=== PATIENT | female | born 1960 | race Caucasian/White ===

== ENCOUNTER 2021-01-11 07:48 | Outpatient (REF) | payer OTHER, SELFPAY ==
--- NOTE | ~2021-01-11 | MM_ITS ---
EXAMINATION: MM SCREENING DIGITAL BREAST TOMOSYNTHESIS, BILATERAL CLINICAL INFORMATION: Screening. Asymptomatic. The lifetime risk of breast cancer based on the Tyrer-Cuzick Model is 4.9%. COMPARISON: Mammography: January 06, 2020 and studies dating back to March 03, 2014 TECHNIQUE: Digital breast tomosynthesis is performed in both the craniocaudal and mediolateral oblique views along with computer-aided detection (CAD). Synthesized 2D images are generated from the tomosynthesis. FINDINGS: The breasts are heterogeneously dense, which may obscure small masses (ACR BI-RADS breast composition Category c). There are no significant masses, abnormal calcifications, or other abnormalities. There is multiplicity and bilaterality of stable calcifications. MM/MM tomosynthesis screening BI IMPRESSION: There are no significant changes from prior study. ASSESSMENT: BI-RADS 1: Negative RECOMMENDATION: Routine annual mammography screening. This patient's information was entered into a reminder system with a target due date for their next mammogram.
== END 2021-01-11 07:49 | disposition home or self-care (01) ==
LOC: HO.MAMMO 07:48
PROVIDERS: PCP Internal Medicine; Visit Provider Internal Medicine
DX: Z12.31 Encounter for screening mammogram for malignant neoplasm of breast (principal)
CPT/HCPCS: 77063; 77067

== ENCOUNTER 2022-01-19 11:14 | Outpatient (REF) | payer OTHER, SELFPAY ==
--- NOTE | ~2022-01-19 | MM_ITS ---
EXAMINATION: MM SCREENING DIGITAL BREAST TOMOSYNTHESIS, BILATERAL CLINICAL INFORMATION: Screening. Asymptomatic. The lifetime risk of breast cancer based on the Tyrer-Cuzick Model is 5%. COMPARISON: Mammography: 01/11/2021, 01/06/2020, 09/13/2018 TECHNIQUE: Digital breast tomosynthesis is performed in both the craniocaudal and mediolateral oblique views along with computer-aided detection (CAD). Synthesized 2D images are generated from the tomosynthesis. FINDINGS: The breasts are heterogeneously dense, which may obscure small masses (ACR BI-RADS breast composition Category c). Parenchymal pattern is similar to prior studies. There is no developing density or architectural abnormality. Stable nodule mid outer left breast with adjacent clip marker. There is small stable circumscribed nodule anterior medial right breast. There are scattered benign round coarse calcifications left breast and some stable punctate loosely grouped calcifications anterior upper outer right breast. The axilla are unremarkable. No significant changes. MM/MM tomosynthesis screening BI IMPRESSION: No significant changes from prior exams. ASSESSMENT: BI-RADS 2: Benign RECOMMENDATION: Routine annual mammography screening. This patient's information was entered into a reminder system with a target due date for their next mammogram.
== END 2022-01-19 11:15 | disposition home or self-care (01) ==
LOC: HO.MAMMO 11:14
PROVIDERS: Visit Provider Internal Medicine
DX: Z12.31 Encounter for screening mammogram for malignant neoplasm of breast (principal)
CPT/HCPCS: 77063; 77067

== ENCOUNTER 2022-11-17 15:17 | Outpatient (AMB) | payer OTHER, SELFPAY ==
--- NOTE | 2022-11-17 15:26 | AM.OFFWIN_ITS ---
Intake Vital Signs 11/17/22 15:29 BP 130/80 Blood Pressure Location Lt brachial Position Sitting Pulse 66 Pulse Source Pulse Oximeter Pulse Oximetry (%) 98 Oxygen Delivery Method Room Air Intake Visit Reasons: EP LT thumb pain (lobby) Intake Note: patient here jose luis boyer about 3 weeks she has been experiecing left thumb pain, gets stuck Patient Tobacco Use Status: Current everyday Tobacco user Allergies No Known Allergies [No Known Allergies*] Allergy (Unverified 11/17/22 15:29) Do you need a note to return to daycare/school/sports/work: Yes HPI HPI Comments History of Present Illness Details This is a 62-year-old female who presents to the office today with left thumb pain. Patient states she noticed that her thumb was popping in and out of place about 3 weeks ago. Patient denies any known trauma or injury to the area. She denies any numbness/weakness/paresthesias of the thumb. Patient otherwise feeling well. PFSH Social History Patient Tobacco Use Status: Current everyday Tobacco user Review of Systems Const All systems reviewed & are unremarkable except as noted in HPI and below Eyes Reports no additional complaints ENT Reports no additional complaints Card Reports no additional complaints Resp Reports no additional complaints GI Reports no additional complaints Reports no additional complaints Musc Reports as per HPI Skin/Breast Reports system reviewed and no additional complaints, except as documented Neuro Reports no additional complaints Psych Reports no additional complaints Endo Reports no additional complaints Mahad/Lymph Reports no additional complaints Aller/Immun Reports no additional complaints Physical Exam Vital Signs: Last Vital Signs Pulse 66 11/17/22 15:29 BP 130/80 11/17/22 15:29 Pulse Ox 98 11/17/22 15:29 Oxygen Delivery Method Room Air 11/17/22 15:29 Const General: cooperative, healthy appearing, comfortable and no acute distress HEENT Head: Yes normal to inspection Ears: hearing grossly normal bilaterally General nose exam: Normal external nose present Face and sinus: Yes normal facial exam Eyes General: appearance normal, both eyes and all related structures Pupils: Equal, round and reactive pupils present EOM: EOMs intact bilaterally Resp Effort & Inspection: normal respiratory effort, able to speak in complete sentences and no respiratory distress Cardio Rate: regular rate Neuro Cranial nerves: Yes Equal, round and reactive pupils present Extrem Other: Left thumb is without swelling, erythema, or ecchymosis. There is a snapping sound upon flexion of the interphalangeal joint and then patient is unable to extend the interphalangeal joint easily but it eventually snaps back into place. Assessment & Plan Assessment & Plan (1) Pain of left thumb: Code(s): M79.645 - Pain in left finger(s) Plan: This is a 62-year-old female who presents to the office today complaining of left thumb pain and ?snapping?. It appears that patient's interphalangeal joint almost dislocates upon flexion and then subluxates back into place. X-ray of the left hand was obtained to rule out avulsion fracture and was negative for any acute findings. 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 Patient instructed to utilize acetaminophen as well as ibuprofen around the clock for anti-inflammatory purposes. Patient will be out of work for the next 10 days as she is on vacation. She declines a brace at this time. She will follow up with Orthopedic surgery as soon as possible. Coding Level of Care Code Est Pt Level 3 (19000) Diagnoses Pain of left thumb M79.645
[2022-11-17 15:29] VITALS: BP 130/80; PULSE 66; O2SAT 98
== END 2022-11-17 16:14 | disposition home or self-care (01) ==
PROVIDERS: PCP Internal Medicine; Visit Provider Physician Assistant Medical
DX: M79.645 Pain in left finger(s) (principal)
CPT/HCPCS: 99213

== ENCOUNTER 2022-11-17 15:50 | Outpatient (REF) | payer OTHER, SELFPAY ==
--- NOTE | ~2022-11-17 | XR_ITS ---
EXAMINATION: XR HAND, LEFT CLINICAL INFORMATION: Finger pain COMPARISON: 12-14 TECHNIQUE: PA, lateral, and oblique views of the left hand. FINDINGS: No fracture or dislocation. Alignment maintained. Degenerative change of the first carpometacarpal joint with joint space narrowing and osteophytes. Small osteophytes throughout the interphalangeal joints. No osseous erosions. Soft tissues appear unremarkable. XR/XR hand LT min 3V IMPRESSION: Mild degenerative changes throughout the interphalangeal joints and first carpometacarpal joint.
== END 2022-11-17 15:51 | disposition home or self-care (01) ==
LOC: HO.HMGCX 15:50
PROVIDERS: PCP Internal Medicine; Visit Provider Physician Assistant Medical
DX: M79.645 Pain in left finger(s) (principal)
CPT/HCPCS: 73130

== ENCOUNTER 2023-01-10 14:41 | Outpatient (AMB) | payer OTHER, SELFPAY ==
--- NOTE | 2023-01-10 14:55 | A.OFFVIS_ITS ---
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 Patients reports pain and not able to bend at the IP joint for the past 3 months. States unable to title examiner and pinch items. Pain radiates down to her CMC. Denies injury, numbness or tingling. No previous tx. 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 She states she has pain in her thumb which radiates down to her CMC. She is unable to bend the IP joint and finds difficulty with gripping and pinching motions. She denies any numbness or tingling and has not had any treatment in the past. 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 Review of Systems Const All systems reviewed & are unremarkable except as noted in HPI and below Physical Exam Vital Signs: BMI result Body Mass Index 21.6 Const General: cooperative, healthy appearing, comfortable, no acute distress, well developed and alert Orientation/consciousness: patient oriented x3 HEENT Head: Yes normal to inspection, Yes normocephalic and Yes atraumatic Eyes General: appearance normal, both eyes and all related structures Resp Effort & Inspection: normal respiratory effort and able to speak in complete sentences Cardio Rate: regular rate Peripheral pulses: Peripheral pulses 2+ throughout GI Palpation (GI): Soft to palpation Skin Lesions: no lesions Rashes: no rashes Neuro General: patient oriented x3 Extrem Other: Left thumb: Tender nodule along the A1 ulysses with active catching and locking. NVI. Assessment & Plan Assessment & Plan (1) Trigger finger of left thumb: Code(s): M65.312 - Trigger thumb, left thumb Plan We discussed options which include conservative vs operative treatment. Since the patient has been symptomatic for several months and it is impacting their daily life, the decision was made to undergo Trigger release. We discussed risk, benefits and alternatives. Risk including but not limited to infection, stiffness, ongoing trigger or catching. She does understand all this and would like to proceed with left thumb trigger release with Dr. Sosa. She will be booked accordingly. Patient Instructions: Scribed for Kaylynn Ross PA-C, by Gregory Carballo emergency medical service coordinator, on 01/10/2023 at 3:00 PM EST. I, Kaylynn Ross PA-C, have personally reviewed and agree with the information entered by the scribe. Coding Level of Care Code New Pt Level 4 (35236) Diagnoses Trigger finger of left thumb M65.312
[2023-01-10 14:58] VITALS: BMI 21.6
== END 2023-01-10 15:30 | disposition home or self-care (01) ==
PROVIDERS: Visit Provider Physician Assistant
DX: M65.312 Trigger thumb, left thumb (principal)
CPT/HCPCS: 99204

== ENCOUNTER → 2023-01-10 14:41 | Outpatient (BNVA) | payer OTHER, SELFPAY | PROVIDERS: Visit Provider Physician Assistant ==

== ENCOUNTER 2023-01-25 08:31 | Outpatient (REF) | payer OTHER, SELFPAY | END 2023-01-25 08:32 | disposition home or self-care (01) | LOC: HO.MAMMO 08:31 | PROVIDERS: PCP Internal Medicine; Visit Provider Internal Medicine | DX: Z12.31 Encounter for screening mammogram for malignant neoplasm of breast (principal) | CPT/HCPCS: 77063; 77067 ==

== ENCOUNTER → 2023-01-25 08:45 | Outpatient (BNV) | payer OTHER, SELFPAY | PROVIDERS: PCP Internal Medicine; Visit Provider Radiology Diagnostic Radiology | DX: Z12.31 Encounter for screening mammogram for malignant neoplasm of breast (principal) | CPT/HCPCS: 77063; 77067 ==

== ENCOUNTER 2023-02-01 09:11 | Outpatient (AMB) | payer OTHER, SELFPAY ==
--- NOTE | 2023-02-01 11:40 | AM.OFFWIN_ITS ---
Intake Vital Signs 02/01/23 11:42 Height 5 ft 5 in Weight 130 lb BMI 21.6 BP 130/70 Blood Pressure Location Rt brachial Position Sitting Pulse 79 Pulse Source Pulse Oximeter Temp 96.8 F Temp Source Temporal Artery Scan Pulse Oximetry (%) 96 Oxygen Delivery Method Room Air Intake Visit Reasons: EP Back pain Intake Note: Pt is here c/o back since 01/29/23. Pt states she had a tag sale this weekend and was doing a lot of lifting. Patient Tobacco Use Status: Current everyday Tobacco user Allergies No Known Allergies [No Known Allergies*] Allergy (Unverified 02/01/23 11:41) Do you need a note to return to daycare/school/sports/work: No HPI EP Back pain HPI Details 62-year-old female patient presents toda with acute lower back pain. This started over the weekend, following a tag seal, where she was doing significant bending and lifting. She reports constant lower back pain, increasing with any bending or standing. She denies any radiation of pain down legs. Denies any leg weakness or numbness. Denies any past surgery or trauma to lower back. Denies any bowel or bladder dysfunction or saddle anesthesia. 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 Range of motion very painful, particularly with flexion and extension of lumbar spine. No vertebral tenderness. Patient having discomfort even with sitting during appointment. Skin General skin exam: no rashes or lesions noted Extrem General: Yes capillary refill normal and Yes no clubbing, cyanosis or edema Psych Appearance: grossly normal Mental Status: mental status grossly normal Speech and movement: Normal speech and movement present Assessment & Plan Assessment & Plan (1) Acute lumbar myofascial strain: Code(s): S39.012A - Strain of muscle, fascia and tendon of lower back, initial encounter Qualifiers: Encounter type: initial encounter Qualified Code(s): S39.012A - Strain of muscle, fascia and tendon of lower back, initial encounter Plan: Patient has acute lumbar strain due to a lifting injury this past weekend. She declines imaging at this time. I advised she rest and apply heat/ice as needed, and also can continue to use lidocaine patches. I am going to start her on a short course of muscle relaxers for HS use and also pain medication for prn use only for breakthrough pain after using Motrin/Tylenol and other conservative measures. We reviewed indications, use, risks, possible side effects of medicati on. If she does not improve with time and treatment, or if new symptoms develop, she should return to the clinic for further evaluation. She agrees to plan. Medications: New tizanidine 4 mg PO BEDTIME 5 days PRN 5 tabs 0RF muscle spasticity tramadol 50 mg PO BID 3 days PRN 6 tabs 0RF pain S39.012A - Strain of muscle, fascia and tendon of lower back, initial encounter Coding Level of Care Code Est Pt Level 3 (42990) Diagnoses Acute myofascial strain of lumbar region, initial encounter S39.012A Encounter type: initial encounter
[2023-02-01 11:42] VITALS: BP 130/70; PULSE 79; TEMP 36; O2SAT 96; BMI 21.6
== END 2023-02-01 12:11 | disposition home or self-care (01) ==
PROVIDERS: PCP Internal Medicine; Visit Provider Nurse Practitioner Family
DX: S39.012A Strain of muscle, fascia and tendon of lower back, initial encounter (principal)
CPT/HCPCS: 99213

== ENCOUNTER 2023-02-19 10:40 | Day surgery (SDC) | payer OTHER, SELFPAY ==
[2023-02-19 14:12] VITALS: BP 129/88; PULSE 69; RESP 16; TEMP 36.8; O2SAT 98
[2023-02-19 14:13] VITALS: BMI 21.6
--- NOTE | 2023-02-19 14:20 | PC.NURSE ---
This nurse reported off to [employer] Asif.
--- NOTE | 2023-02-19 15:13 | MHC.SHP ---
Pre-Procedural Eval Section A Date of Service: 02/19/23 The patient is an INPATIENT: No Changes since office visit: No Cold of Flu in the past 2 weeks, No New Medical Problems, No Changes in Medication and No Patient answered all questions The History & Physical has been completed within 30 days and I have reviewed it.: Yes Section B Chief Complaint: Trigger thumb, left thumb Allergies: Allergies Allergy/AdvReac Type Severity Reaction Status Date / Time No Known Allergies Allergy Verified 02/19/23 14:10 [No Known Allergies*] Plan I have reviewed the history and physical and performed a pertinent physical examination on my patient. No changes have occurred unless specified. Time Spent With Patient Time: Total time managing care of this patient today ____ minutes.
--- NOTE | 2023-02-19 15:13 | W.PM.OPN ---
Operative Note Operative Note Date of Service: 02/19/23 Narrative: Operative Note Preop diagnosis: 1. Left trigger thumb Postop diagnosis: 1. left trigger thumb Procedure: 1. left thumb A1 ulysses release Surgeon: Seema Sosa MD Anesthesia: local block using 1% lidocaine with epinephrine Findings: No locking or catching after A1 ulysses release EBL: Less than 5 mL Tourniquet time: None Specimens: None Complications: None Disposition: Brought to recovery room in stable condition Plan: Follow-up for 10-14 days for wound check and suture removal Indications: The patient is 62 years old, with a left trigger thumb that has been unresponsive to nonoperative management. The risks and benefits of operative treatment including but not limited to risk of damage to blood vessels, nerves, tendons, infection, persistent pain, persistent symptoms, recurrence or possible need for additional surgery were discussed with the patient and the patient wishes to proceed with surgery. Procedure: Once consent was obtained a local block was performed in the preop area using a combination of 1% lidocaine with epinephrine. The patient was then brought back to the operating suite and placed on the operative table in supine position. The left upper extremity was prepped and draped in a standard surgical fashion. Once assured that we had a good block, a 1.5 cm oblique incision was made centered over the A1 ulysses of the left thumb . The incision was made through the skin to the subcutaneous tissues using a #15 blade. Careful dissection was made down to the level of the A1 ulysses using tenotomy scissors, with care being taken to protect the nearby neurovascular structures. A longitudinal incision was made in the A1 ulysses 1st using a #15 blade, then using tenotomy scissors under direct visualization. The A1 ulysses was noted to be thickened. Following our A1 ulysses release, we no longer saw any locking or catching of the digit with flexion and extension. Once satisfied with our A1 ulysses release the wound was copiously irrigated with normal saline and hemostasis was obtained with a brief period of local pressure. The skin edges were reapproximated with some 5.0 nylon suture material and a sterile dressing was applied. The patient appears to have tolerated the procedure well and with no complications. All digits were well vascularized at the conclusion of the case.
[2023-02-19 16:50] VITALS: BP 164/64; PULSE 65; RESP 18; TEMP 37.3; O2SAT 98
== END 2023-02-19 17:05 ==
LOC: HO.SSS 10:41
PROVIDERS: PCP Internal Medicine; Visit Provider Orthopaedic Surgery
PROC: (CPT 26055; principal; 2023-02-19 12:20)
DX: M65.312 Trigger thumb, left thumb (principal); M79.645 Pain in left finger(s); F17.210 Nicotine dependence, cigarettes, uncomplicated
CPT/HCPCS: 26055; J0171

== ENCOUNTER → 2023-02-19 10:40 | Outpatient (BNV) | payer OTHER, SELFPAY | PROVIDERS: PCP Internal Medicine; Visit Provider Orthopaedic Surgery | DX: M65.312 Trigger thumb, left thumb (principal) | CPT/HCPCS: 26055 ==

== ENCOUNTER 2023-03-07 11:20 | Outpatient (AMB) | payer OTHER, SELFPAY ==
--- NOTE | 2023-03-07 11:22 | A.OFFVIS_ITS ---
Intake Intake Visit Reasons: PO Left Trigger thumb 02/19/23AR Intake Note: Angelina a 62 year old female presents today for a post operative left thumb trigger release from [facility] 02/19/23. States she has tenderness by suture area and swelling which limits her ROM. Allergies No Known Allergies [No Known Allergies*] Allergy (Verified 03/07/23 11:28) HPI PO Left Trigger thumb 02/19/23AR HPI Details 62-year-old female who returns to the [facility] today for post-op left trigger thumb release, 02/19/[address] Sosa. She continues to have tenderness at the suture area and also c/o swelling in her thumb which limits her ROM. She is doing well otherwise and has no other concerns today. 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 No redness or drainage. She is able to bend 90 degrees at the MCP joint but only 45 degrees at the IP joint. She can fully extend the digit. I do not appreciate any clicking or locking. Assessment & Plan Assessment & Plan (1) Trigger finger of left thumb: Code(s): M65.312 - Trigger thumb, left thumb Plan Sutures removed today, steri strips applied. I educated her on the importance of working on ROM of hand especially the thumb. She is significantly guarded with trying to flex the thumb at the IP joint due to her pain. I did work on some of this in the office today. I also put in a referral for occupational therapy to work on aggressive ROM. She will remain out of work until March 26 and I will see her back on the week of March 29 for a ROM check, sooner if needed. Orders: Orders OT Evaluation and Treatment Today M65.312 - Trigger thumb, left thumb Patient Instructions: Scribed for Kaylynn Ross PA-C, by Gregory Carballo, director of graduate medical education, on 03/07/2023 at 11:30 AM Kaylynn HARRISON PA-C, have personally reviewed and agree with the information entered by the scribe. Coding Level of Care Code Global (72480) Diagnoses Trigger finger of left thumb M65.312
== END 2023-03-07 11:51 | disposition home or self-care (01) ==
PROVIDERS: PCP Internal Medicine; Visit Provider Physician Assistant
DX: M65.312 Trigger thumb, left thumb (principal)
CPT/HCPCS: 99024

== ENCOUNTER → 2023-03-07 11:20 | Outpatient (BNVA) | payer OTHER, SELFPAY | PROVIDERS: PCP Internal Medicine; Visit Provider Physician Assistant ==

== ENCOUNTER 2023-03-21 09:09 | Outpatient (AMB) | payer OTHER, SELFPAY ==
--- NOTE | 2023-03-21 09:21 | MHC.OFFVIS ---
Intake Vital Signs 03/21/23 09:22 Height 5 ft 5 in Weight 130 lb BMI 21.6 Intake Visit Reasons: PO Left Trigger thumb 02/19/23AR Intake Note: Angelina mcdonald 62 year old female presents today for a post operative ROM check s/p left thumb trigger release from [facility] 02/19/23. States she is working with O.T to gain her thumb ROM back. She is slowly noticing improvement. Allergies No Known Allergies [No Known Allergies*] Allergy (Verified 03/21/23 09:21) HPI PO Left Trigger thumb 02/19/23AR HPI Details 62-year-old female who returns to the office today for post-op ROM check s/p left trigger thumb release, 02/19/[address] Sosa. She continues to have pain and stiffness in her finger and reports no change in her symptoms since surgery. She is working with occupational therapy to gain her ROM back. She has no concerns today. 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 She is able to bend 90 degrees at the MCP joint but only 45 degrees at the IP joint. She can fully extend the digit. I do not appreciate any clicking or locking. Assessment & Plan Assessment & Plan (1) Trigger finger of left thumb: Code(s): M65.312 - Trigger thumb, left thumb Plan I stress importance working with occupational therapy which also means working on exercises at home. Because she states her IP joint is locked since before surgery, I am not certain there will be much improvement. I do strongly encourage she meet back with Dr. Sosa when she returns in early April. She will see me back sooner if needed. Patient Instructions: Scribed for Kaylynn Ross PA-C, by Gregory Carballo medical esthetician, on 03/21/2023 at 9:30 AM Kaylynn HARRISON PA-C, have personally reviewed and agree with the information entered by the scribe. Coding Level of Care Code Global (73122) Diagnoses Trigger finger of left thumb M65.312
[2023-03-21 09:22] VITALS: BMI 21.6
== END 2023-03-21 09:35 | disposition home or self-care (01) ==
PROVIDERS: PCP Internal Medicine; Visit Provider Physician Assistant
DX: M65.312 Trigger thumb, left thumb (principal)
CPT/HCPCS: 99024

== ENCOUNTER → 2023-03-21 09:09 | Outpatient (BNVA) | payer OTHER, SELFPAY | PROVIDERS: PCP Internal Medicine; Visit Provider Physician Assistant ==

== ENCOUNTER 2023-04-05 13:00 | Outpatient (RCR) | payer OTHER, SELFPAY ==
--- NOTE | 2023-03-14 13:01 | MHC.OT.EP ---
[address] [phone] Occupational Therapy Plan of Care Patient Name: Angelina Haile Date of Evaluation: 03/14/23 Diagnosis: Left Trigger Thumb Pain Location: Pain free in hand 3/10 burning, ache across dorsal thumb, some soreness in scar Pain Score: 3 Pain Scale Used: Numeric (0 - 10) Aggravating Factors: Grasping Alleviating Factors: Advil in morning (takes also due to back pain) Assessment: 62 yo female w/ hx of left thumb triggering, now post-op trigger finger release 02/19/23 w/ Dr Sosa. She reports difficulty w/ active thumb flexion, now referred to OT for further management. On assessment, she has high sensitivity in volar scar, well healed but firm scarring and tender to palpate. Thumb flex is limited w/ minimal active IP, but pt still very guarded. I anticipate she will do well w/ course of OT for good functional return of non-dominant left hand. Frequency and Duration: The patient will be seen 2x/wk 3 weeks Short Term Goals: Ind w/ HEP Ind w/ scar management Thumb IP 30 degrees AROM Pt to demo good bimanual FMC tasks w/ ADL closure boards Mcfp Goals: QuickDASH score <20 Gross grasp >35lb Full thumb opp to base of small finger Pt to demo good use of thumb w/ moderate bimanual tasks FDT <20 secs Treatment Plan: Therapeutic Exercise Therapeutic Activity Home Exercise Program Patient Education Edema Control ADL Training Paraffin Fluidotherapy MHP Soft Tissue Mobilization Electronically Signed By: Debbie Hu OTR/L CHT Please Sign and return to therapist. Thank you once again for your referral.
--- NOTE | 2023-04-05 13:47 | MHC.OT.DC ---
[address] [phone] F: [phone] Occupational Therapy Discharge Note Patient Name: Angelina Haile Provider: Kaylynn Ross PA-C Diagnosis: Left Trigger Thumb Date of Surgery: 02/19/23 Date of Evaluation: 03/14/23 Date of Discharge: 04/05/23 Treatments to Date: 6 Discharge Status: Achieved Goals Improved Function Independent with HEP Discharge Summary: Angelina is now about 6 weeks post-op left trigger thumb release. She reports overall improvements w/ left thumb pain and general use, still w/ tenderness and edema on volar aspect, but Ind w/ self massage and ROM. 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 She has been educated on joint protection and use of ice for inflammation, also will trial prefab orthosis for protection. If no improvement over next several weeks, will discuss w/ MD on ortho follow up. Electronically Signed By: Debbie Hu OTR/L CHT Please Sign and return to therapist, thank you for your referral.
== END 2023-04-05 13:48 | disposition home or self-care (01) ==
LOC: HO.OT 13:00
PROVIDERS: PCP Internal Medicine; Visit Provider Physician Assistant
DX: Z47.89 Encounter for other orthopedic aftercare (principal)
CPT/HCPCS: 97110; 97140; 97165; 97530

== ENCOUNTER 2023-05-08 08:41 | Outpatient (AMB) | payer OTHER, SELFPAY ==
--- NOTE | 2023-05-08 08:44 | MHC.OFFVIS ---
Intake Vital Signs 05/08/23 08:45 Height 5 ft 5 in Weight 130 lb BMI 21.6 Intake Visit Reasons: OV- left thumb trigger release Intake Note: Angelina a 62 year old female who is 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, presents today for a follow up visit for her ROM check s/p left thumb trigger release from DOS 02/19/23. States she is limited ROM at her MCP joint and pain with over use. Allergies No Known Allergies [No Known Allergies*] Allergy (Verified 03/21/23 09:21) HPI OV- left thumb trigger release HPI Details Angelina is a 62 year old 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 woman who returns S/P left trigger thumb release, DOS: 02/19/23. She complains of limited thumb ROM since her surgery, and she has increased pain when overusing her thumb. She has been working with OT but has not been able to improve her motion. 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 The area is nontender and with good mobility. The patient says that initially it was tender for a while but it has improved in the last month. She has full active extension of the thumb. She can actively oppose her thumb to the tips of all digits but has trouble flexing to the base of the small finger. She does have about 45 degrees of active flexion at the IP joint but she has got perhaps 70 degrees of IP flexion in the opposite thumb. There is also some mild enlargement of the IP joint consistent with arthritic changes. No locking or catching with range of motion. No tenderness over the 1st dorsal compartment or the MCP joint. She does have a mild shoulder sign at the CMC joint but is not particularly tender. When she flexes down she feels a tightness across the dorsal aspect of the thumb extending across the metacarpal consistent with some mild extrinsic tightness. She can make a fist and extend all of her other digits. Sensation is intact to all digits and cap refill is brisk Psych Appearance: grossly normal Affect: normal affect Attitude: cooperative Assessment & Plan Assessment & Plan (1) Trigger finger of left thumb: Code(s): M65.312 - Trigger thumb, left thumb Plan Assessment & Plan: 1. Left thumb trigger finger, S/P release DOS: 02/19/23 2. Left residual mild left thumb IP stiffness I think she is doing well postoperatively. She does have some mild residual stiffness still in the IP joint. This certainly could be related to the fact that she had the trigger thumb for prolonged period, and during this time she was not actively flexing her thumb. She also appears to have some arthritic changes in the IP joint which could be slowing her recovery of range of motion. She has completed her OT hand therapy. I encouraged her to continue to work on those range of motion exercises that can help increase her IP flexion. I explained that while somewhat uncomfortable, the tightness over the dorsal aspect of the thumb is actually helping improve her tightness range of motion by decreasing her tightness. She is happy with the current plan will follow-up p.r.nVitor Scribed for Seema Sosa MD by Paul Rich, medical scientist, on 05/08/23 at 9:00 AM, EST. Coding Level of Care Code Global (61041) Diagnoses Trigger finger of left thumb M65.312
[2023-05-08 08:45] VITALS: BMI 21.6
== END 2023-05-08 09:09 | disposition home or self-care (01) ==
PROVIDERS: PCP Internal Medicine; Visit Provider Orthopaedic Surgery
DX: M65.312 Trigger thumb, left thumb (principal)
CPT/HCPCS: 99024

== ENCOUNTER → 2023-05-08 08:41 | Outpatient (BNVA) | payer OTHER, SELFPAY | PROVIDERS: PCP Internal Medicine; Visit Provider Orthopaedic Surgery | DX: Z48.89 Encounter for other specified surgical aftercare (principal) | CPT/HCPCS: 99212 ==

== ENCOUNTER 2023-07-06 09:31 | Outpatient (AMB) | payer OTHER, SELFPAY ==
--- NOTE | 2023-07-06 09:38 | A.OFFPC_ITS ---
Vital Signs 07/06/23 09:39 Height 5 ft 5 in Weight 125 lb BMI 20.8 BP 136/90 H Blood Pressure Location Lt brachial Position Sitting Pulse 72 Pulse Source Pulse Oximeter Pulse Oximetry (%) 98 Oxygen Delivery Method Room Air Intake Visit Reasons: New patient-requesting physical Intake Note: Pt is here today for PE. Pt has not seen Dr. Archuleta for 3 years. Pt states that she has not had a pap done since last time she saw Dr.. Archuleta. Allergies No Known Allergies [No Known Allergies*] Allergy (Verified 07/06/23 10:17) Medication List - Last Reconciled 07/06/23 by Kianna Archuleta MD No Known Home Meds Tobacco use date assessed: 07/06/23 Dental Screening Dental Screen Date: 07/06/23 Did you have a dental visit in the last 12 months?: No Did you have a dental problem in the last 6 months where you did not have access to dental care?: No Was dental information given to patient?: Patient declined HPI New patient-requesting physical HPI Details 62-year-old lady here today to [facility] care with me and for her physical exam. She has not been seen by a doctor for the last 3 years, and is overdue for everything. Her last mammogram was done in 2010 , and last Pap smear was done by me in 2017 which was negative for any malignancy. 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 1. Little interest or pleasure in doing things: not at all 2. Feeling down, depressed, or hopeless: not at all 3. Trouble falling or staying asleep, or sleeping too much: not at all 4. Feeling tired or having little energy: not at all 5. Poor appetite or overeating: not at all 6. Feeling bad about yourself - or that you are a failure or have let yourself or your family down: not at all 7. Trouble concentrating on things, such as reading the newspaper or watching television: not at all 8. Moving or speaking so slowly that other people could have noticed. Or the opposite - being so fidgety or restless that you have been moving around a lot more than usual: not at all Depression Screening Interpretation: Negative Depression Screening Done: Yes 74494 - PHQ-9 Billing: Yes Source: Developed by Drs. Abram Boo, Lucinda Huber, Ariel Hall and colleagues, with an educational alin from [employer]. Thrive Questionnaire Date Thrive assessed: 07/06/23 What is your living situation today?: I have a steady place to live Within the past 12 months, did the food you bought not last and you didn't have the money to get more?: Never true Within the past 12 months, did you worry whether your food would run out before you got money to buy more?: Never true Do you have trouble paying for medicines?: No Do you have trouble getting transportation to medical appointments?: No Do you have trouble paying your heating and electricity bill?: No Do you have trouble taking care of your child, family member or friend?: No Do you have trouble with day-to-day activities such as bathing, preparing meals, shopping, managing finances, etc.?: No Are you currently unemployed and looking for a job?: No Are you interested in more education?: No THRIVE Score: 0 AUDIT C Alcohol Use Questionnaire (AUDIT-C) 1. How often do you have a drink containing alcohol?: Monthly or less 2. How many drinks containing alcohol do you have on a typical day when you are drinking?: 1 or 2 3. How often do you have six or more drinks on one occasion?: Never Total Score: 1 Score Reviewed/Action Taken: Yes JOSLYN-7 AMB Questionnaire JOSLYN-7 Date JOSLYN - 7 assessed: 07/06/23 Feeling nervous, anxious, or on edge: 0 = Not at all Not being able to stop or control worryin = Not at all Worrying too much about different things: 0 = Not at all Trouble relaxin = Not at all Being so restless that it is hard to sit still: 0 = Not at all Becoming easily annoyed or irritable: 0 = Not at all Feeling afraid as if something awful might happen: 0 = Not at all Total JOSLYN-7 score (0-4 normal; 5-9 mild; 10-14 moderate; 15-21 severe): 0 Source: Developed by Drs. Abram Boo, Lucinda Huber, Ariel Hall and colleagues, with an educational alin from [employer]. JOSLYN-7 Assessment Billing JOSLYN-7 Assessment Tool: JOSLYN-7 Assessment 27557 Review of Systems Const Denies body aches, Denies fatigue, Denies fever(s), Denies headache(s) and Denies weakness Eyes Denies change in vision ENT Denies dizziness, Denies headache(s), Denies nasal congestion, Denies nasal discharge and Denies sore throat Card Denies chest pain, Denies irregular heart rhythm, Denies lightheadedness, Denies palpitations and Denies dyspnea Resp Denies chest congestion, Denies cough, Denies dyspnea and Denies wheezing GI Denies abdominal pain, Denies change in bowel habits and Denies heartburn Denies hematuria, Denies urinary frequency, Denies dysuria, Denies urinary incontinence, Denies urinary urgency, Denies vaginal discharge and Denies vaginal pruritus Musc Reports no additional complaints Skin/Breast Reports as per HPI, Denies breast pain, Denies breast mass and Denies rash Neuro Denies dizziness, Denies headache(s) and Denies weakness Psych Reports no additional complaints Endo Denies fatigue, Denies polydipsia, Denies polyuria and Denies palpitations Mahad/Lymph Denies easy bruising Aller/Immun Denies seasonal rhinorrhea and Denies wheezing Physical exam (Primary Care) Vital Signs: Last Vital Signs Pulse 72 07/06/23 09:39 BP 136/90 H 07/06/23 09:39 Pulse Ox 98 07/06/23 09:39 Oxygen Delivery Method Room Air 07/06/23 09:39 BMI result Body Mass Index 20.8 Tobacco/Smoking Status: Tobacco use Status Tobacco use date assessed 07/06/23 07/06/23 09:53 Patient Tobacco Use Status Current everyday Tobacco 07/06/23 09:39 Tobacco use type Cigarette 07/06/23 09:53 e-Cigarette/Vaping Use Never Used 07/06/23 09:53 Depression Screening Interpretation: Negative Const General: no acute distress and alert Orientation/consciousness: patient oriented x3 HENMT Head: Yes normocephalic Ears: external ears normal, TM's normal bilaterally and EAC's normal General nose exam: Normal external nose present and No nasal discharge present Face and sinus: Yes face symmetric Mouth: Normal oral and palatal mucosa present, oropharynx normal and moist mucous membranes Eyes General: appearance normal, both eyes and all related structures Eyelids: Yes eyelids normal Conjunctivae: conjunctivae normal Sclerae: sclerae normal Pupils: Equal, round and reactive pupils present EOM: EOMs intact bilaterally Neck Neck: Yes full ROM, Yes no lymphadenopathy and Yes supple Thyroid: Thyroid normal Chest Breast/axilla palpation: normal palpation of the breasts Resp Effort & Inspection: normal respiratory effort and able to speak in complete sentences Auscultation: clear to auscultation bilaterally Cardio Rate: regular rate Rhythm: regular rhythm Heart sounds: S1 normal heart sound present and S2 normal heart sound present GI Palpation (GI): Soft to palpation, nontender, no guarding and no masses Auscultation: normal bowel sounds General: Yes no CVA tenderness Back/Spine/Pelvis Back: no CVA tenderness and No back tenderness Skin Other: Hyper pigmented raised lesion on anterior chest wall Neuro General: patient oriented x3, gait normal, moves all extremities, Normal light touch and pain sensation, no focal motor deficits and CN's II-XI intact bilaterally Cranial nerves: Yes Equal, round and reactive pupils present Cognition (Neuro): normal cognition Gait exam (Neuro): Normal gait present Motor exam (neuro): 5/5 motor strength present throughout Extrem General: Yes normal to inspection, Yes full ROM, Yes no joint enlargement, Yes no pedal edema and Yes normal gait Psych Appearance: grossly normal and well kempt Mental Status: mental status grossly normal Speech and movement: Normal speech and movement present Affect: normal affect Attitude: cooperative Thought process: Normal thought process present Thought content: Normal thought content present Assessment and Plan Assessment & Plan (1) Annual visit for general adult medical examination with abnormal findings: Code(s): Z00.01 - Encounter for general adult medical examination with abnormal findings Plan: Will check appropriate labs. Recommended dental visit every 6 months and regular eye exams, at least every 2 years. Take adequate calcium in diet and vitamin-D 3 at 2000 IU per cap once a day, in addition to weight-bearing ex ercises to help maintain good muscle tone and weight control. Instructed to do self-breast exam, and continue to get yearly mammogram, up-to-date, in [place] last December 2022. OB referral made for her cervical cancer screening and routine pelvic exam. She has had her COVID vaccine but does not want to get the booster up-to-date with her flu shot, state that she already had her Shingrix vaccine done and is up-to-date with her Tdap. (2) Family history of colon cancer in father: Comment: Age 64 Code(s): Z80.0 - Family history of malignant neoplasm of digestive organs Plan: Referred to GI for her initial colonoscopy (3) Colon cancer screening: Code(s): Z12.11 - Encounter for screening for malignant neoplasm of colon Plan: GI consult for screening colonoscopy (4) Hyperlipidemia: Code(s): E78.5 - Hyperlipidemia, unspecified Plan: fasting lipid profile ordered . Recommended to adhere to a low-cholesterol diet and get regular exercise (5) Hyperpigmented skin lesion: Code(s): L81.9 - Disorder of pigmentation, unspecified Plan: Referral to [facility] dermatology ordered (6) Cigarette smoker motivated to quit: Code(s): F17.210 - Nicotine dependence, cigarettes, uncomplicated Plan: Started on varenicline starter pack, with directions on how to take it, may still continue smoking on it but start cutting back. Directions on how to take the medication given to patient, will see her back for follow-up in 4 weeks after starting the medication Orders: Orders Complete Blood Count Auto Diff 07/06/23 E78.5 - Hyperlipidemia, unspecified, F17.210 - Nicotine dependence, cigarettes, uncomplicated, R53.83 - Other fatigue, Z00.01 - Encounter for general adult medical examination with abnormal findings Aspartate Amino Transferase 07/06/23 E78.5 - Hyperlipidemia, unspecified, F17.210 - Nicotine dependence, cigarettes, uncomplicated, R53.83 - Other fat igue, Z00.01 - Encounter for general adult medical examination with abnormal findings Vitamin D 25-OH Total 07/06/23 E78.5 - Hyperlipidemia, unspecified, F17.210 - Nicotine dependence, cigarettes, uncomplicated, R53.83 - Other fatigue, Z00.01 - Encounter for general adult medical examination with abnormal findings Lipid Panel 07/06/23 E78.5 - Hyperlipidemia, unspecified, F17.210 - Nicotine dependence, cigarettes, uncomplicated, R53.83 - Other fatigue, Z00.01 - Encounter for general adult medical examination with abnormal findings Alanine Aminotransferase 07/06/23 E78.5 - Hyperlipidemia, unspecified, F17.210 - Nicotine dependence, cigarettes, uncomplicated, R53.83 - Other fatigue, Z00.01 - Encounter for general adult medical examination with abnormal findings Vitamin B12 and Folate 07/06/23 E78.5 - Hyperlipidemia, unspecified, F17.210 - Nicotine dependence, cigarettes, uncomplicated, R53.83 - Other fatigue, Z00.01 - Encounter for general adult medical examination with abnormal findings Referrals Gastroenterology Referral Z12.11 - Encounter for screening for malignant neoplasm of colon, Z80.0 - Family history of malignant neoplasm of digestive organs Dermatology Referral L81.9 - Disorder of pigmentation, unspecified, Z12.83 - Encounter for screening for malignant neoplasm of skin 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 Referral Z12.4 - Encounter for screening for malignant neoplasm of cervix Medications: New varenicline PO PER PKG DIR 53 ea 0RF - Nicotine dependence, cigarettes, uncomplicated Coding Level of Care Code New Pt Prev Care 40-64y(55302) Diagnoses Annual visit for general adult medical examination with abnormal findings Z00.01 Family history of colon cancer in father Z80.0 Colon cancer screening Z12.11 Hyperlipidemia E78.5 Hyperpigmented skin lesion L81.9 Cigarette smoker motivated to quit Additional Codes JOSLYN-7 Assessment Billing - JOSLYN-7 Assessment Tool: JOSLYN-7 Assessment [id number] ([id number])
[2023-07-06 09:39] VITALS: BP 136/90; PULSE 72; O2SAT 98; BMI 20.8
== END 2023-07-06 11:15 | disposition home or self-care (01) ==
PROVIDERS: PCP Internal Medicine; Visit Provider Internal Medicine
DX: Z00.00 Encounter for general adult medical examination without abnormal findings (principal); Z80.0 Family history of malignant neoplasm of digestive organs; F17.210 Nicotine dependence, cigarettes, uncomplicated; Z12.11 Encounter for screening for malignant neoplasm of colon; E78.5 Hyperlipidemia, unspecified; L81.9 Disorder of pigmentation, unspecified
CPT/HCPCS: 99396

== ENCOUNTER 2023-07-10 08:13 | Outpatient (REF) | payer OTHER, SELFPAY ==
[2023-07-10 11:07] LABS: MANUAL DIFF FLAG NO
[2023-07-10 11:36] LABS: Basophils Absolute Auto 0.1 X10*3/uL (0.0-0.2); Basophils Percent Auto 0.7 % (0-2); Eosinophils Absolute Auto 0.2 X10*3/uL (0.0-0.4); Eosinophils Percent Auto 1.7 % (0-4); Hematocrit 43.4 % (37.0-47.0); Hemoglobin 14.6 g/dl (12.0-16.0); Imm Gran Abs Auto 0.02 X10*3/uL (0.00-0.03); Imm Gran Pct Auto 0.2 % (0.0-0.4); Lymphocytes Absolute Auto 2.4 X10*3/uL (1.2-4.9); Lymphocytes Percent Auto 24.4 % (20-40); Mean Corpuscular HGB Conc 33.6 g/dl (31.0-35.0); Mean Corpuscular Hemoglobin 31.2 pg (27.0-33.0); Mean Corpuscular Volume 92.7 fL (80.0-98.0); Mean Platelet Volume 10.1 fL (9.4-12.3); Monocytes Absolute Auto 0.7 X10*3/uL (0.1-1.2); Neutrophils Absolute Auto 6.5 x10*3/uL (2.0-8.3); Platelet Count 404 X10*3/uL (160-400); Red Blood Count 4.68 X10*6/uL (4.20-5.50); Red Cell Distribution Width 12.8 % (11.0-16.0); White Blood Count 9.9 X10*3/uL (4.8-10.8)
[2023-07-10 12:06] LABS: Alanine Aminotransferase 9 U/L (0-31); Aspartate Amino Transferase 15 U/L (5-31); Cholesterol 203 mg/dL (<200); HDL Cholesterol 51 mg/dL (>40); LDL Cholesterol Calculated 140 mg/dL (<100); Triglycerides 61 mg/dL (<150); Vitamin D 25-OH Total 23.5 ng/mL (>30)
[2023-07-10 12:16] LABS: Folate 8.5 ng/mL (> or = 4.0); Vitamin B12 336 pg/mL (200-900)
== END 2023-07-10 08:14 | disposition home or self-care (01) ==
LOC: HO.HMGCLDS 08:13
PROVIDERS: PCP Internal Medicine; Visit Provider Internal Medicine
DX: Z00.01 Encounter for general adult medical examination with abnormal findings (principal); E78.5 Hyperlipidemia, unspecified; R53.83 Other fatigue; F17.210 Nicotine dependence, cigarettes, uncomplicated
CPT/HCPCS: 36415; 80061; 82306; 82607; 82746; 84450; 84460; 85025

== ENCOUNTER 2023-07-31 08:42 | Outpatient (AMB) | payer OTHER, SELFPAY ==
[2023-07-31 09:15] VITALS: BP 148/88; PULSE 60; O2SAT 98; BMI 21.5
--- NOTE | 2023-07-31 09:15 | MHC.PC.OV ---
Vital Signs 07/31/23 09:15 Height 5 ft 5 in Weight 129 lb BMI 21.5 BP 148/88 H Blood Pressure Location Rt brachial Position Sitting Pulse 60 Pulse Source Pulse Oximeter Pulse Oximetry (%) 98 Oxygen Delivery Method Room Air Intake Visit Reasons: 4W F/U after starting Chantix Intake Note: Pt is here today for her 4wks f/u chantix Allergies No Known Allergies [No Known Allergies*] Allergy (Verified 08/06/23 01:09) Medication List - Last Reconciled 08/06/23 by Kianna Archuleta MD azithromycin For 250 mg dose pack: take 500 mg today (day 1), then 250 mg for 4 days (days 2-5) PO cholecalciferol (vitamin D3) 1,250 mcg PO QWEEK 3 months codeine-guaifenesin 10-100 mg/5 mL 5 mL PO Q12H PRN varenicline 1 mg PO BID Tobacco use date assessed: 07/31/23 Dental Screening Dental Screen Date: 07/06/23 Did you have a dental visit in the last 12 months?: No Was dental information given to patient?: Patient declined HPI 4W F/U after starting Chantix HPI Details 62-year-old lady here today for follow-up after starting Chantix for smoking cessation. She has been taking it as directed, no adverse effects reported from it and has now cut down to less than 3 cigarettes a day. Had recent fasting labs done which showed fasting lipids with mildly elevated LDL cholesterol, normal triglycerides, and has low vitamin-D level. Has been having nasal congestion, runny nose , with postnasal drainage and occasionally productive cough present now for the last 5 days. Denies any accompanying fever, no chest pain or shortness of breath reported. Has been taking rzsq-nfk-clwpmqu cough medications which has not afforded much improvement. PFSH Medical History URI with cough and congestion Former heavy cigarette smoker (20-39 per day) Vitamin D deficiency Hyperpigmented skin lesion Cigarette smoker motivated to quit Family history of colon cancer in father Hyperlipidemia Smoker Surgical History Hx of cholecystectomy History of carpal tunnel surgery S/P gastric surgery History of appendectomy Family History Father Colon cancer Mother Hypertension Social History Housing: House Patient Tobacco Use Status: Current everyday Tobacco user Tobacco use type: Cigarette Cigarettes Per Day: 12 e-Cigarette/Vaping Use: Never Used Current occupational status: employed 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 Depression Screening Interpretation: Negative Depression Screening Done: Yes Source: Developed by Drs. Abram Boo, Lucinda Huber, Ariel Hall and colleagues, with an educational alin from [employer]. Thrive Questionnaire Date Thrive assessed: 07/06/23 JOSLYN-7 AMB Questionnaire JOSLYN-7 Date JOSLYN - 7 assessed: 07/06/23 Source: Developed by Drs. Abram Boo, Lucinda Huber, Ariel Hall and colleagues, with an educational alin from [employer]. Review of Systems Const Denies body aches, Denies fatigue, Denies fever(s), Reports headache(s), Denies weakness and Denies weight loss Eyes Denies change in vision ENT Reports as per HPI, Denies dizziness, Reports headache(s) and Reports nasal congestion Card Denies chest pain, Denies irregular heart rhythm, Denies lightheadedness and Denies palpitations Resp Reports as per HPI GI Denies abdominal pain, Denies change in bowel habits and Denies heartburn Denies no additional complaints, Denies urinary incontinence, Denies urinary urgency, Denies vaginal discharge and Denies vaginal pruritus Musc Reports no additional complaints Neuro Denies dizziness, Reports headache(s) and Denies weakness Psych Reports no additional complaints Endo Denies fatigue, Denies polydipsia, Denies polyuria and Denies palpitations Mahad/Lymph Denies easy bruising Aller/Immun Denies seasonal rhinorrhea Physical exam (Primary Care) Vital Signs: Last Vital Signs Pulse 60 07/31/23 09:15 BP 148/88 H 07/31/23 09:15 Pulse Ox 98 07/31/23 09:15 Oxygen Delivery Method Room Air 07/31/23 09:15 BMI result Body Mass Index 21.5 Tobacco/Smoking Status: Tobacco use Status Tobacco use date assessed 07/31/23 07/31/23 09:17 Patient Tobacco Use Status Current everyday Tobacco 07/31/23 09:17 Tobacco use type Cigarette 07/31/23 09:17 e-Cigarette/Vaping Use Never Used 07/31/23 09:17 Depression Screening Interpretation: Negative Thrive Assessment: Date of Thrive Assessment Date Thrive assessed 07/06/23 07/31/23 09:17 Const General: no acute distress and alert Orientation/consciousness: patient oriented x3 HENMT Ears: external ears normal, TM's normal bilaterally and EAC's normal General nose exam: Normal external nose present and Abnormal mucous membranes and turbinates present erythematous Face and sinus: Yes face symmetric Mouth: Normal oral and palatal mucosa present, oropharynx normal and moist mucous membranes Eyes General: appearance normal, both eyes and all related structures Neck Neck: Yes full ROM, Yes no lymphadenopathy and Yes supple Thyroid: Thyroid normal Resp Effort & Inspection: normal respiratory effort and able to speak in complete sentences Auscultation: clear to auscultation bilaterally Cardio Rate: regular rate Rhythm: regular rhythm Heart sounds: S1 normal heart sound present and S2 normal heart sound present GI Palpation (GI): Soft to palpation, nontender, no guarding and no masses Auscultation: normal bowel sounds General: Yes no CVA tenderness Back/Spine/Pelvis Back: no CVA tenderness and No back tenderness Skin Other: Hyper pigmented raised lesion on anterior chest wall Neuro General: patient oriented x3, gait normal, moves all extremities, Normal light touch and pain sensation, no focal motor deficits and CN's II-XI intact bilaterally Cognition (Neuro): normal cognition Gait exam (Neuro): Normal gait present Motor exam (neuro): 5/5 motor strength present throughout Extrem General: Yes normal to inspection, Yes full ROM, Yes no joint enlargement, Yes no pedal edema and Yes normal gait Psych Appearance: grossly normal and well kempt Mental Status: mental status grossly normal Affect: normal affect Results Reviewed Results Reviewed: Name: Angelina Haile Age/Sex: 62/F : 1960 Unit#: [id number] Attend Dr: Kianna Archuleta MD Re07/10/23 Status: DEP REF Location: [facility] Disch: SPEC : [id number] CHARLY: 07/10/23 STATUS: COMP REQ : [id number] RECD: 07/10/[address]: Kianna Archuleta MD COMP: 07/10/23 ENTERED: 07/10/[address] [facility] [address]: ORDERED: AST, ALT, Lipid Panel, Vitamin D 25-OH Test Result Flag Reference AST (GOT) 15 5-31 U/L ALT (GPT) 9 0-31 U/L Triglyceride 61 <150 mg/dL Desirable Triglyceride: less than 150 mg/dL Borderline High Triglyceride 150-199 mg/dL High Triglyceride: 200-499 mg/dL Very High Triglyceride: greater than or equal to 5OO mg/dL Cholesterol 203 H <200 mg/dL Desirable Cholesterol: less than 200 mg/dL Borderline High Cholesterol: 200-239 mg/dL High Cholesterol: greater than 239 mg/dL LDL Calculated 140 H <100 mg/dL Desirable LDL: less than 100 mg/dL Near Optimal/Above Optimal LDL: 110-129 mg/dL Borderline High LDL: 130-159 mg/dL High LDL: 160-189 mg/dL Very High LDL: greater than or equal to 190 mg/dL HDL 51 >40 mg/dL Desirable HDL: greater than 40 mg/dL Note: This HDL assay may give artificially low results in patients with liver disease. Vit D 25-OH Tot 23.5 L >30 ng/mL Health Based Reference Values* < 20 ng/mL Deficient 20-30 ng/mL Insufficient > 30 ng/mL Sufficient Assessment and Plan Assessment & Plan (1) Former heavy cigarette smoker (20-39 per day): Code(s): Z87.891 - Personal history of nicotine dependence Plan: Referred for cancer screening. Continue with Chantix 1 mg per tablet 1 tablet twice a day with a meal and a full glass of water. (2) URI with cough and congestion: Code(s): J06.9 - Acute upper respiratory infection, unspecified Plan: Prescription sent for azithromycin to take as directed and guaifenesin with codeine, 5 mL once or twice a day as needed only for severe coughing. (3) Screening for lung cancer: Code(s): Z12.2 - Encounter for screening for malignant neoplasm of respiratory organs Plan: Referred to thoracic surgery for lung cancer screening (4) Vitamin D deficiency: Code(s): E55.9 - Vitamin D deficiency, unspecified Plan: Started on vitamin-D 3 49147 units per capsule taken once a week for the next 3 months. Once finished taking prescription, to continue taking bqvd-lao-nscetda vitamin-D 3 at 2000 units daily. (5) Cigarette smoker motivated to quit: Code(s): F17.210 - Nicotine dependence, cigarettes, uncomplicated Plan: Continued on Chantix 1 mg 1 tablet twice a day with meals and a glass of water. Continue with cutting back until able to quit smoking altogether Orders: Referrals Thoracic Surgery Referral Z12.2 - Encounter for screening for malignant neoplasm of respiratory organs, Z87.891 - Personal history of nicotine dependence Medications: New varenicline 1 mg PO BID 60 tabs 1RF azithromycin For 250 mg dose pack: take 500 mg today (day 1), then 250 mg for 4 days (days 2-5) PO 6 tabs 0RF cholecalciferol (vitamin D3) 1,250 mcg PO QWEEK 3 months 13 caps 0RF E55.9 - Vitamin D deficiency, unspecified codeine-guaifenesin 10-100 mg/5 mL 5 mL PO Q12H PRN 118 mL 0RF Persistent cough Discontinued varenicline Discontinued Reason: Patient Completed Course PO PER PKG DIR 53 ea 0RF F17.210 - Nicotine dependence, cigarettes, uncomplicated Coding Level of Care Code Est Pt Level 4 (28757) Diagnoses Former heavy cigarette smoker (20-39 per day) Z87.891 URI with cough and congestion J06.9 Screening for lung cancer Z12.2 Vitamin D deficiency E55.9 Cigarette smoker motivated to quit F17.210
== END 2023-07-31 09:56 | disposition home or self-care (01) ==
PROVIDERS: PCP Internal Medicine; Visit Provider Internal Medicine
DX: J06.9 Acute upper respiratory infection, unspecified (principal); E55.9 Vitamin D deficiency, unspecified; F17.210 Nicotine dependence, cigarettes, uncomplicated; Z12.2 Encounter for screening for malignant neoplasm of respiratory organs
CPT/HCPCS: 99214

== ENCOUNTER 2023-08-23 08:17 | Outpatient (REF) | payer OTHER, SELFPAY ==
[2023-08-23 10:56] LABS: Anion Gap 13 (12-20); Blood Urea Nitrogen 15 mg/dL (9-16); Calcium 9.5 mg/dL (8.4-10.2); Carbon Dioxide 24 mmol/L (22-29); Chloride 110 mmol/L (96-108); Estimated Glomerular Filt Rate > 60; Glucose Fasting 96 mg/dL (60-99); Potassium 4.1 mmol/L (3.3-5.1); Sodium 143 mmol/L (135-145)
[2023-08-23 11:05] LABS: Vitamin D 25-OH Total 91.1 ng/mL (>30)
== END 2023-08-23 08:18 | disposition home or self-care (01) ==
LOC: HO.HMGCLDS 08:17
PROVIDERS: PCP Internal Medicine; Visit Provider Internal Medicine
DX: E67.3 Hypervitaminosis D (principal)
CPT/HCPCS: 36415; 80048; 82306

== ENCOUNTER 2023-08-28 07:55 | Outpatient (AMB) | payer OTHER, SELFPAY ==
[2023-08-28 08:00] VITALS: BP 110/70; BMI 21.0
--- NOTE | 2023-08-28 08:00 | MHC.OFFVIS ---
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 No complaints. Last Pap/HPV was negative in 01/14 Last Mammogram was BI-RADS 2 in 01/20 No previous screening Colonoscopy, next screening colonoscopy scheduled in 11/20 [facility] Medical History URI with cough and congestion Former heavy cigarette smoker (20-39 per day) Vitamin D deficiency Hyperpigmented skin lesion Cigarette smoker motivated to quit Family history of colon cancer in father Hyperlipidemia Smoker Surgical History Hx of cholecystectomy History of carpal tunnel surgery S/P gastric surgery History of appendectomy Family History Father Colon cancer Mother Hypertension Social History Housing: House Alcohol intake: current Alcohol intake frequency: holidays/special occasions only Patient Tobacco Use Status: Current everyday Tobacco user Tobacco use type: Cigarette Cigarettes Per Day: 4 e-Cigarette/Vaping Use: Never Used Current occupational status: employed 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, 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 Sexually active: No Cognitive needs: No Hearing needs: No Vision needs: No Female Reproductive History Menstrual Total pregnancies: 3 Full term: 3 Number of Living Children: 3 Review of Systems Const All systems reviewed & are unremarkable except as noted in HPI and below Card Reports as per HPI Resp Reports as per HPI GI Reports as per HPI and Reports no additional complaints Reports as per HPI Physical Exam Vital Signs: Last Vital Signs BP 110/70 08/28/23 08:00 BMI result Body Mass Index 21.0 Const General: cooperative, healthy appearing and comfortable Chest Chest palpation & inspection: normal inspection of the chest and normal palpation of entire chest wall Breast/axilla inspection: normal inspection of the breasts and normal inspection of the axillae Breast/axilla palpation: normal palpation of the breasts, normal palpation of the axillae and no axillary lymphadenopathy Resp Effort & Inspection: normal respiratory effort Auscultation: clear to auscultation bilaterally Percussion: percussion normal Cardio Palpation: normal PMI Rate: regular rate Rhythm: regular rhythm Heart sounds: no murmurs and no rubs Peripheral pulses: Peripheral pulses 2+ throughout GI Inspection: Yes normal to inspection Palpation (GI): Soft to palpation, nontender, no guarding, not rigid and No hepatosplenomegaly present Percussion: Yes normal to percussion Auscultation: normal bowel sounds Rectal Exam - Female: deferred General: Yes bladder normal to palpation External Female Exam: No lesion Speculum Exam - Vagina: normal appearance of the vagina, normal palpation, normal vaginal discharge and not erythematous Speculum Exam - Cervix: normal appearance of the cervix and normal palpation Bimanual exam- vagina & uterus: normal bimanual exam, normal palpation, uterine size normal, bladder normal to palpation, consistency normal and normal palpation Bimanual Exam- Adnexa, other: normal adnexae, no masses and no tenderness Assessment & Plan Assessment & Plan (1) Well woman exam: Code(s): Z01.419 - Encounter for gynecological examination (general) (routine) without abnormal findings Category: Medical Plan: Co testing done. Counseled the patient about the recommended dietary allowance of 1200 mg of Calcium & 600 IU of vitamin D. Mammogram scheduled in 01/21 Screening colonoscopy scheduled in 11/20 The patient was instructed to perform monthly self-breast exams and schedule annual exam in a year. All questions answered and the patient verbalized understanding. Coding Level of Care Code New Pt Prev Care 40-64y(13743) Diagnoses Well woman exam Z01.419
== END 2023-08-28 08:50 | disposition home or self-care (01) ==
PROVIDERS: PCP Internal Medicine; Visit Provider Obstetrics & Gynecology
DX: Z01.419 Encounter for gynecological examination (general) (routine) without abnormal findings (principal)
CPT/HCPCS: 99386

== ENCOUNTER 2023-08-28 07:55 | Outpatient (REF) | payer OTHER, SELFPAY ==
[2023-09-06 03:37] LABS: HPV mRNA E6/E7 rflx Not Detected (Not Detected)
== END 2023-08-28 07:56 | disposition home or self-care (01) ==
LOC: HO.LNP 07:55
PROVIDERS: PCP Internal Medicine; Visit Provider Obstetrics & Gynecology
DX: Z01.419 Encounter for gynecological examination (general) (routine) without abnormal findings (principal); Z11.51 Encounter for screening for human papillomavirus (HPV)
CPT/HCPCS: 87624; 88142; 99386

== ENCOUNTER 2023-12-29 07:40 | Emergency (ER) | payer OTHER, SELFPAY ==
--- NOTE | 2023-12-29 | ECG_ITS ---
Test Reason : SOB Blood Pressure : / mmHG Vent. Rate : 067 BPM Atrial Rate : 067 BPM P-R Int : 150 ms QRS Dur : 074 ms QT Int : 400 ms P-R-T Axes : 061 033 047 degrees QTc Int : 422 ms Normal sinus rhythm Cannot rule out Anterior infarct , age undetermined Abnormal ECG When compared with ECG of 23-DEC-2017 10:27, No significant change was found Referred By: Samuel Shankar Electronically Signed By:KENDRA LACKEY
--- NOTE | ~2023-12-29 | CT_ITS ---
EXAMINATION: CT CHEST WITH CONTRAST CLINICAL INFORMATION: Lung mass. COMPARISON: Chest radiograph from 12/29/2023. TECHNIQUE: Multidetector volumetric CT imaging of the chest was performed following the administration of 65 mL Omnipaque 350 intravenous contrast. Axial MIP volume rendering provided. Sagittal and coronal reformatted images were obtained. DLP: 182 mGy-cm FINDINGS: LUNGS: There appears to be a heterogeneous masslike lesion in the posterior aspect of the right upper lobe, measuring approximately 6.1 x 4.5 x 6.7 cm. This mass extends to the hilar region with occlusion of the right upper lobe bronchus. Collapse/consolidation of the remainder of the right upper lobe with commensurate expansion of the right middle and lower lobes. Along with this change, there is superior displacement of the right mainstem bronchus with moderate circumferential wall thickening and narrowing on the right mainstem bronchus and bronchus intermedius. Nonspecific mild groundglass opacification and mild segmental peribronchial wall thickening in the central aspect of the right lower lobe. Moderate centrilobular emphysema (most notably in the left upper lobe). No additional focal airspace abnormalities. The remaining airways remain widely patent. No pleural effusion or pneumothorax. MEDIASTINUM: The cardiac structures are without significant demonstrated abnormality. Trace pericardial effusion. No mediastinal free fluid or gas. As noted above, there is a right lung mass extending to the right hilar region. No left-sided hilar lymphadenopathy. No additional mediastinal lymphadenopathy. Coronary artery calcifications: Present - mild. PLEURA: There is no pleural effusion or pneumothorax. No pleural mass or thickening. AXILLA: No lymphadenopathy UPPER ABDOMEN: Changes of prior bariatric surgery. Limited evaluation of the upper abdomen without demonstrated additional significant abnormalities. VASCULATURE: The thoracic aorta is of normal contour and caliber with moderate calcific atherosclerotic disease. OSSEOUS STRUCTURES: Advanced degenerative disc disease at C6-C7. Mild multilevel degenerative changes of the thoracic spine. No suspicious lytic or sclerotic osseous lesions demonstrated. No soft tissue masses demonstrated. CT/CT chest w IV con IMPRESSION: 1. Apparent heterogeneous 6.7 cm masslike lesion in the posterior aspect of the right upper lobe. This mass extends to the right hilar region with occlusion of the right upper lobe bronchus. Collapse/consolidation of the remainder of the right upper lobe with commensurate expansion of the right middle and lower lobes. Along with this change, there is moderate circumferential wall thickening and narrowing of the right mainstem bronchus and bronchus intermedius. Findings are suspicious for underlying malignancy. 2. Moderate emphysema. Electronically signed by: Will Torres DO 12/29/2023 12:38 PM EDT RP
--- NOTE | ~2023-12-29 | XR_ITS ---
EXAMINATION: XR CHEST CLINICAL INFORMATION: Cough. COMPARISON: 262 12/30/2015. TECHNIQUE: 2 views of the chest were obtained. FINDINGS: The lungs are well-expanded and clear. The heart size and pulmonary vascularity is normal. There is a prominent right suprahilar and superior paramediastinal soft tissue density/mass new since 2016 exam. There is mild tenting of right hemidiaphragm. No gross bony abnormality seen. XR/XR chest 2V IMPRESSION: Right suprahilar and superior paramediastinal mass. Recommend CT chest with contrast. Electronically signed by: Dwaine Stapleton MD 12/29/2023 08:51 AM EDT
[2023-12-29 07:50] VITALS: BP 148/75; PULSE 87; RESP 18; TEMP 36.8; O2SAT 97; BMI 21.8
[2023-12-29 07:56] VITALS: BP 149/102; PULSE 83; RESP 18; TEMP 36.9; O2SAT 98
[2023-12-29 07:58] VITALS: RESP 19
--- NOTE | 2023-12-29 08:02 | ED.URI ---
HPI - URI/Sore Throat General Chief Complaint: Dyspnea Stated Complaint: cough Time Seen by Provider: 12/29/23 07:48 Source: patient Mode of arrival: ambulatory Limitations: no limitations History of Present Illness HPI Narrative: This is a 63 years old patient presented to the emergency department with a chief complaint of cough congestion for about 3 weeks she denies any fever chills vomiting. She is a smoker MD elicited complaint: cough Onset (ago): week(s) (3) Consistency: constant Severity: moderate Able to tolerate fluids by mouth: Yes Exacerbating factors: nothing Relieving factors: nothing Related Data Allergies Allergy/AdvReac Type Severity Reaction Status Date / Time No Known Allergies Allergy Verified 12/29/23 07:52 [No Known Allergies*] Review of Systems Constitutional: Constitutional: Reports no additional constitutional complaints Cardiovascular: Cardiovascular: Reports no additional cardiovascular complaints Respiratory: Respiratory: Reports chest congestion and Reports cough Psychiatric: Psychiatric: Reports no additional psychiatric complaints [facility] Past Medical History Attestation statement: The following information was validated with the patient. [facility] Narrative: smoker Medical History Nicotine dependence, cigarettes, uncomplicated Vitamin D deficiency Hyperpigmented skin lesion Family history of colon cancer in father Hyperlipidemia Surgical History History of cholecystectomy History of carpal tunnel surgery of right wrist S/P gastric surgery History of appendectomy Family History Family History Father Colon cancer Mother Hypertension Social History Social History Housing: House Alcohol intake: current Alcohol intake frequency: holidays/special occasions only Patient Tobacco Use Status: Current everyday Tobacco user Tobacco use type: Cigarette Cigarettes Per Day: 4 Smoked in Last 30 Days: Yes e-Cigarette/Vaping Use: Never Used Use of substances other than those prescribed or required for medical reasons: No Advance Directives: No Advance Directives Information Provided: Yes Do you have a plan to hurt others: No Plan Current occupational status: employed 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, 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 Cognitive needs: No Hearing needs: No Vision needs: No Physical Exam Vital Signs: Vital Signs: Last Vital Signs Temp 98.1 F 12/29/23 11:51 Pulse 64 12/29/23 11:51 Resp 18 12/29/23 11:51 BP 135/58 L 12/29/23 11:51 Pulse Ox 96 12/29/23 11:51 O2 Del Method Room Air 12/29/23 11:51 BMI result Body Mass Index 21.8 She looks well she has no toxic-appearing afebrile talking in full sentences Const: General: comfortable Nutritional Appearance: average body habitus HEENT: Head: Yes normal to inspection Face and sinus: Yes normal facial exam Mouth: Normal oral and palatal mucosa present Throat: Yes posterior oropharynx normal Neck: Neck: Yes normal visual inspection and Yes full ROM Chest: Chest palpation & inspection: normal inspection of the chest Resp: Effort & Inspection: normal respiratory effort Auscultation: rhonchi Cardio: Jugular venous distension: no JVD Rate: regular rate Rhythm: regular rhythm GI: Inspection: Yes normal to inspection Palpation (GI): Soft to palpation, not firm, nontender and no guarding Skin: General skin exam: no rashes or lesions noted, elasticity normal and turgor normal Lesions: no lesions Rashes: no rashes Wounds: no wounds Course Reevaluation(s) Reevaluation #1: Abnormal chest x-ray with a right hilar mass will do CT Time: 09:38 Reevaluation #2: A CT scan of the chest confirmed with the present of the right lung mass, I discussed with the patient and , I spoke with Dr. Coronado will see the patient this coming week Time: 12:57 Medications Administered Discontinued Medications Generic Name Dose Route Start Last Admin Trade Name Freq PRN Reason Stop Dose Admin Iohexol 100 ml 12/29/23 10:57 12/29/23 10:57 Iohexol 350 Mg/Ml 100 Ml Infus..Btl IV 12/29/23 10:58 65 ml ONCE ONE Administration Medical Decision Making Medical Decision Making [facility] Narrative: Patient presented to emergency department with cough congestion it is reasonable to obtain a chest x-ray a viral panel I do not think she needs any blood work Differential Diagnosis Differential Diagnoses: The differential diagnosis associated with the presentation includes Bronchitis/pneumonia/COVID/flu Admission/Observation Consideration of admission/observation: Escalation of care including admission/observation considered Consult Healthcare Provider Dr Coronado thoracic surgery Lab Data [facility] Lab Attestation statement: I reviewed the patient's lab results. 12/29/23 09:56 12/29/23 09:56 Labs: Lab Results 12/29/23 12/29/23 Range/Units 08:08 09:56 WBC 10.1 (4.8-10.8) X10*3/uL RBC 4.29 (4.20-5.50) X10*6/uL Hgb 13.4 (12.0-16.0) g/dl Hct 40.9 (37.0-47.0) % MCV 95.3 (80.0-98.0) fL MCH 31.2 (27.0-33.0) pg MCHC 32.8 (31.0-35.0) g/dl RDW 13.1 (11.0-16.0) % Plt Count 367 (160-400) X10*3/uL MPV 9.0 L (9.4-12.3) fL Immature Gran % (Auto) 0.3 (0.0-0.4) % Neut % (Auto) 64.8 (45-73) % Lymph % (Auto) 23.6 (20-40) % [place] % (Auto) 8.5 (2-11) % Eos % (Auto) 2.1 (0-4) % Baso % (Auto) 0.7 (0-2) % Lymph # (Auto) 2.4 (1.2-4.9) X10*3/uL [place] # (Auto) 0.9 (0.1-1.2) X10*3/uL Eos # (Auto) 0.2 (0.0-0.4) X10*3/uL Baso # (Auto) 0.1 (0.0-0.2) X10*3/uL Abs Immat Gran (auto) 0.03 (0.00-0.03) X10*3/uL Absolute Neuts (auto) 6.6 (2.0-8.3) x10*3/uL Absolute Nucleated RBC 0.000 (0.0-0.012) X10*3/uL Nucleated RBC % (auto) 0.0 (0.0-0.2) /100WBC Sodium 145 (135-145) mmol/L Potassium 4.5 (3.3-5.1) mmol/L Chloride 111 H (96-108) mmol/L Carbon Dioxide 27 (22-29) mmol/L Anion Gap 12 (12-20) BUN 10 (9-16) mg/dL Creatinine 0.69 (0.5-1.4) mg/dL Estim Creat Clear Calc 72.0 Estimated GFR > 60 Random Glucose 100 (60-115) mg/dL Calcium 9.7 (8.4-10.2) mg/dL Total Bilirubin 0.4 (0.0-1.0) mg/dL AST 17 (5-31) U/L ALT 14 (0-31) U/L Alkaline Phosphatase 97 (39-117) U/L Total Protein 7.3 (6.5-8.0) g/dL Albumin 3.9 (3.5-5.0) g/dL Influenza Type A (PCR) NEGATIVE (Negative) Influenza Type B (PCR) NEGATIVE (Negative) RSV RNA Qual (PCR) NEGATIVE (Negative) SARS-CoV-2 RNA (RT-PCR) NEGATIVE (Negative) Independent Interpretation I performed an independent interpretation of an: Plain X-Ray and CT Scan Interpretation: I reviewed the chest x-ray CT personally as right lung mass Radiology Impression Discussion of test interpretation with radiology: I have reviewed the radiologist's reading. Independent Historian Clinical information obtained from an independent historian. History obtained from or confirmed by: Spouse Chronic Conditions copd/smoker Discharge Plan Discharge Clinical Impression: Lung mass Patient Disposition: Home, Self-Care Additional Instructions: As we discussed you have a right lung mass that will need investigation. The emergency room doctor spoke with Dr. Coronado (thoracic surgeon), he will see you this week you need to call the office appointment. Return to the emergency room if you worse Referrals: Reji Coronado MD [Physician] - 01/01/24 (lung mass) Print Language: Czech
--- NOTE | 2023-12-29 08:04 | PC.NURSE ---
patient presents through external triage with cc of a non productive cough that has been worsening since august. patient with no hx of COPD or asthma, patient states she will start coughing and not be able to catch her breath easily. patient denies any sputum production associated with the cough, denies any fevers or myalgias. some expiratory wheezing appreciated to the right lower lobe upon auscultation, otherwise patient saturating well on room air, VS WNL. MD at bedside to evaluate patient at this time, no blood work needed per MD, awaiting chest xray.
[2023-12-29 08:51] LABS: Influenza A PCR NEGATIVE (Negative); Influenza B PCR NEGATIVE (Negative); Resp Syncy Virus RNA Qual PCR NEGATIVE (Negative); SARS COV2 PCR INHOUSE NEGATIVE (Negative)
[2023-12-29 10:00] LABS: MANUAL DIFF FLAG NO
[2023-12-29 10:01] LABS: Basophils Absolute Auto 0.1 X10*3/uL (0.0-0.2); Basophils Percent Auto 0.7 % (0-2); Eosinophils Absolute Auto 0.2 X10*3/uL (0.0-0.4); Eosinophils Percent Auto 2.1 % (0-4); Hematocrit 40.9 % (37.0-47.0); Hemoglobin 13.4 g/dl (12.0-16.0); Imm Gran Abs Auto 0.03 X10*3/uL (0.00-0.03); Imm Gran Pct Auto 0.3 % (0.0-0.4); Lymphocytes Absolute Auto 2.4 X10*3/uL (1.2-4.9); Lymphocytes Percent Auto 23.6 % (20-40); Mean Corpuscular HGB Conc 32.8 g/dl (31.0-35.0); Mean Corpuscular Hemoglobin 31.2 pg (27.0-33.0); Mean Corpuscular Volume 95.3 fL (80.0-98.0); Monocytes Absolute Auto 0.9 X10*3/uL (0.1-1.2); Monocytes Percent Auto 8.5 % (2-11); Neutrophils Absolute Auto 6.6 x10*3/uL (2.0-8.3); Neutrophils Percent Auto 64.8 % (45-73); Platelet Count 367 X10*3/uL (160-400); Red Blood Count 4.29 X10*6/uL (4.20-5.50); Red Cell Distribution Width 13.1 % (11.0-16.0); White Blood Count 10.1 X10*3/uL (4.8-10.8)
[2023-12-29 10:18] LABS: Alanine Aminotransferase 14 U/L (0-31); Albumin Level 3.9 g/dL (3.5-5.0); Alkaline Phosphatase 97 U/L (39-117); Anion Gap 12 (12-20); Aspartate Amino Transferase 17 U/L (5-31); Bilirubin Total 0.4 mg/dL (0.0-1.0); Blood Urea Nitrogen 10 mg/dL (9-16); Calcium 9.7 mg/dL (8.4-10.2); Carbon Dioxide 27 mmol/L (22-29); Chloride 111 mmol/L (96-108); Estimated Glomerular Filt Rate > 60; Glucose Random 100 mg/dL (60-115); Potassium 4.5 mmol/L (3.3-5.1); Sodium 145 mmol/L (135-145); Total Protein 7.3 g/dL (6.5-8.0)
[2023-12-29] MEDS: iohexoL 350 MG/ML 100 ML INFUS..BTL IV (10:57)
[2023-12-29 11:51] VITALS: BP 135/58; PULSE 64; RESP 18; TEMP 36.7; O2SAT 96
--- NOTE | 2023-12-29 12:37 | PC.NURSE ---
patient resting on stretcher with at bedside, offering no complaints at this time. awaiting MD reeval
[2023-12-29 12:57] VITALS: BP 111/90; PULSE 80; RESP 20; TEMP 36.9; O2SAT 97
[2023-12-29 13:01] VITALS: BP 111/90; PULSE 80; RESP 20; TEMP 36.9; O2SAT 97
== END 2023-12-29 13:02 | disposition home or self-care (01) ==
PROVIDERS: Emergency Provider Emergency Medicine; PCP Internal Medicine
DX: R91.8 Other nonspecific abnormal finding of lung field (principal); R06.2 Wheezing; Z03.818 Encounter for observation for suspected exposure to other biological agents ruled out; R05.9 Cough, unspecified; E78.5 Hyperlipidemia, unspecified; F17.210 Nicotine dependence, cigarettes, uncomplicated
CPT/HCPCS: 0241U; 36415; 71046; 71260; 80053; 85025; 93005; 99284; 99285; Q9967

== ENCOUNTER 2024-01-02 08:08 | Outpatient (AMB) | payer OTHER, SELFPAY ==
--- NOTE | 2024-01-02 08:13 | MHC.OFFVIS ---
Vital Signs 01/02/24 08:21 Height 5 ft 4 in Weight 127 lb BMI 21.8 BP 139/55 L Blood Pressure Location Rt brachial Position Sitting Pulse 84 Intake Visit Reasons: lung mass Intake Note: Patient referred after ER visit on 12-29-2023. Reports per chest CT lung mass. Patient c/o: SOB, fatigue. Food Beverage Supervisor Required: No Accompanied by: spouse Ed Allergies No Known Allergies [No Known Allergies*] Allergy (Verified 01/02/24 08:18) HPI Comments Details: Patient presents with her . She has had a three-month history of progressively worsening cough. Nonproductive. She denies any hemoptysis, she has no chest pain but has had some back discomfort which he thinks is from all the coughing paroxysms. She has also some associated wheezing. For energy is markedly diminished. Her weight and appetite are stable. Patient has a 35+ year history of 1 pack per day smoking. Chart was reviewed and patient evaluated [facility] Medical History (Updated 01/02/24 @ 08:21 by CRISTHIAN Zuñiga) Basal cell carcinoma Trigger finger Nicotine dependence, cigarettes, uncomplicated Vitamin D deficiency Hyperpigmented skin lesion Family history of colon cancer in father Hyperlipidemia Surgical History (Updated 01/02/24 @ 08:38 by Reji Coronado MD) History of cholecystectomy History of carpal tunnel surgery of right wrist S/P gastric surgery History of appendectomy Family History Father Colon cancer Mother Hypertension Social History (Updated 01/02/24 @ 08:19 by CRISTHIAN Zuñiga) Housing: House Alcohol intake: current Alcohol intake frequency: holidays/special occasions only Patient Tobacco Use Status: Former Tobacco user Tobacco use type: Cigarette Cigarettes Per Day: 4 e-Cigarette/Vaping Use: Never Used Current occupational status: employed 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 Chest Other: Chest breath sounds bilaterally, diminished right side. Marked wheezing right side. GI Other: Abdomen is soft, benign. No obvious organomegaly Assessment & Plan Assessment & Plan (1) Mass of upper lobe of right lung: Code(s): R91.8 - Other nonspecific abnormal finding of lung field Category: Surgical Plan: I discussed with the patient and her the CT scan findings which are very concerning for a neoplastic process which is highly likely causing the patient's symptoms. I reviewed the case with Dr. Del Real this morning and he will make arrangements for evaluated the patient and bronchoscopy and possible EBUS. In the meantime, I will order a PET scan for staging. Patient will see me after the above-mentioned studies and procedures are completed. All questions answered. Patient has discontinued smoking for the last 5 days and they have encouraged her to continue this. Orders: Orders PET CT fusion skull to thigh Today R91.8 - Other nonspecific abnormal finding of lung field Coding Level of Care Code New Pt Level 5 (78592) Diagnoses Mass of upper lobe of right lung R91.8
[2024-01-02 08:21] VITALS: BP 139/55; PULSE 84; BMI 21.8
== END 2024-01-02 08:38 | disposition home or self-care (01) ==
PROVIDERS: PCP Internal Medicine; Visit Provider Surgery
DX: R91.8 Other nonspecific abnormal finding of lung field (principal)
CPT/HCPCS: 99204

== ENCOUNTER → 2024-01-02 08:08 | Outpatient (BNVA) | payer OTHER, SELFPAY | PROVIDERS: PCP Internal Medicine; Visit Provider Surgery | DX: R91.8 Other nonspecific abnormal finding of lung field (principal) | CPT/HCPCS: 99202 ==

== ENCOUNTER 2024-01-03 13:48 | Outpatient (AMB) | payer OTHER, SELFPAY ==
[2024-01-03 13:49] VITALS: BMI 21.8
--- NOTE | 2024-01-03 13:49 | MHC.OFFVIS ---
Vital Signs 01/03/24 13:49 Height 5 ft 4 in Weight 127 lb BMI 21.8 Intake Visit Reasons: Lung Mass Head Worker Required: No Allergies No Known Allergies [No Known Allergies*] Allergy (Verified 01/03/24 13:49) HPI Comments Details: This is a pulmonary evaluation. The patient is a 63 year woman with a history of tobacco dependency presenting with a normal CT scan the chest. Apparently she had been having worsening cough. The cough is significant. He continued to worsen. Nonproductive in nature. Also associated with shortness of breath. Also had difficulty with chest tightness. She could not tolerate the symptoms and decided to go to the ER evaluate there she did have a CTA. The personally reviewed the demonstrating a large mediastinal mass which appears to be to some degree necrotic in nature. She was referred to thoracic surgery. Was then referred to Pulmonary. We did do a telehealth visit. The patient understands that she has a concerning condition that needs to have a biopsy. We did talk about different alternatives of diagnostic intervention. The highest yield lowest risk procedure would be to perform a bronchoscopy with endobronchial ultrasound to get sampling. Will try to schedule that as soon as possible at this time. In the meantime we did talk about treating her underlying symptoms to allow her to be able to feel better at this time. [facility] Medical History (Updated 01/03/24 @ 14:01 by Sina Del Real MD) Chronic cough Basal cell carcinoma Trigger finger Nicotine dependence, cigarettes, uncomplicated Vitamin D deficiency Hyperpigmented skin lesion Family history of colon cancer in father Hyperlipidemia Surgical History (Updated 01/02/24 @ 08:38 by Reji Coronado MD) History of cholecystectomy History of carpal tunnel surgery of right wrist S/P gastric surgery History of appendectomy Family History Father Colon cancer Mother Hypertension Social History (Updated 01/02/24 @ 08:19 by CRISTHIAN Zuñiga) Housing: House Alcohol intake: current Alcohol intake frequency: holidays/special occasions only Patient Tobacco Use Status: Former Tobacco user Tobacco use type: Cigarette Cigarettes Per Day: 4 e-Cigarette/Vaping Use: Never Used Current occupational status: employed 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, 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 Cognitive needs: No Hearing needs: No Vision needs: No Review of Systems Const Denies fever(s) Eyes Reports no additional complaints ENT Reports no additional complaints Card Denies chest pain and Reports dyspnea on exertion Resp Reports chest congestion, Reports cough and Reports dyspnea on exertion GI Reports no additional complaints Musc Reports no additional complaints Skin/Breast Denies rash Neuro Reports no additional complaints Mahad/Lymph Reports lymphadenopathy Aller/Immun Reports no additional complaints Physical Exam Vital Signs: BMI result Body Mass Index 21.8 Const General: cooperative Orientation/consciousness: patient oriented x3 Chest Chest palpation & inspection: normal inspection of the chest Resp Effort & Inspection: able to speak in complete sentences and Actively coughing Neuro General: patient oriented x3 Telehealth Telehealth Telehealth Platform: Telephone Location of provider rendering services: practice address Location of patient: address on file Patient Identification confirmed using: Name, : Yes Telehealth method: voice only Patient verbally consented to treatment: Yes Patient verbally consented to billing insurance company: Yes Patient informed of any privacy concerns related to visit: Yes Results Reviewed Results Reviewed: personally reviewed CT chest with large mediastinal mass and partial obstruction of the right central bronchus Assessment & Plan Assessment & Plan (1) Mass of upper lobe of right lung: Code(s): R91.8 - Other nonspecific abnormal finding of lung field Category: Surgical (2) Chronic cough: Code(s): R05.3 - Chronic cough Category: Medical Plan plan for a semi invasive diagnostic intervention. EBUS with TBNA and bronchosopcy scheduled for next week cough medicine prednisone taper Medications: New prednisone PO daily; Take 2 tabs daily x 7 days then 1 tab daily x 7 days 21 tabs 0RF 14 days codeine-guaifenesin 10-100 mg/5 mL 10 mL PO Q6H PRN 300 mL 0RF cough 10 days albuterol sulfate 90 mcg/actuation 2 inhalations inhalation Q6H PRN 18 grams 12RF shortness of breath or wheezing 30 days J44.9 - Chronic obstructive pulmonary disease, unspecified Coding Level of Care Code New Pt Level 5 (34375) Diagnoses Mass of upper lobe of right lung R91.8 Chronic cough R05.3 Time Spent (min) 30
== END 2024-01-03 14:09 | disposition home or self-care (01) ==
LOC: HO.HPS 13:48
PROVIDERS: PCP Internal Medicine; Visit Provider Hospitalist
DX: R91.8 Other nonspecific abnormal finding of lung field (principal); R05.3 Chronic cough
CPT/HCPCS: 99204

== ENCOUNTER → 2024-01-03 13:48 | Outpatient (BNVA) | payer OTHER, SELFPAY | PROVIDERS: PCP Internal Medicine; Visit Provider Hospitalist | DX: R91.8 Other nonspecific abnormal finding of lung field (principal); R05.3 Chronic cough; Z87.891 Personal history of nicotine dependence | CPT/HCPCS: 99202 ==

== ENCOUNTER 2024-01-09 07:52 | Day surgery (SDC) | payer OTHER, SELFPAY ==
--- NOTE | 2024-01-07 14:24 | HO.ANESPROP2 ---
HPI - Anesthesia Eval Consult details Narrative: 63yo F for Endoscopic Bronchial Ultrasound PMFSH Active Problems Active Problems: All Active Problems Chronic cough (Acute) Mass of upper lobe of right lung (Acute) Nicotine dependence, cigarettes, uncomplicated (Acute) Vitamin D deficiency (Acute) Hyperpigmented skin lesion (Acute) Family history of colon cancer in father (Acute) Hyperlipidemia (Acute) Trigger finger of left thumb (Acute) Past Medical History Medical History Chronic cough Basal cell carcinoma Trigger finger Nicotine dependence, cigarettes, uncomplicated Vitamin D deficiency Hyperpigmented skin lesion Family history of colon cancer in father Hyperlipidemia Family History Family History Father Colon cancer Mother Hypertension Surgical History Surgical History History of cholecystectomy History of carpal tunnel surgery of right wrist S/P gastric surgery History of appendectomy Social History Social History Housing: House Are you a primary home health care coordinator to a significant other at home: No Do you presently have visiting nurse or other home services: No Alcohol intake: current Alcohol intake frequency: does not drink Patient Tobacco Use Status: Former Tobacco user Tobacco use type: Cigarette Cigarettes Per Day: 4 e-Cigarette/Vaping Use: Never Used Current occupational status: employed 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 Rate : 067 BPM Atrial Rate : 067 BPM P-R Int : 150 ms QRS Dur : 074 ms QT Int : 400 ms P-R-T Axes : 061 033 047 degrees QTc Int : 422 ms Normal sinus rhythm Cannot rule out Anterior infarct , age undetermined Abnormal ECG When compared with ECG of 23-DEC-2017 10:27, No significant change was found Assessment and Plan Assessment Anesthesia Assessment: Chart Reviewed
[2024-01-09] VITALS (9 sets, daily range): BP systolic 122–144; BP diastolic 63–85; PULSE 68–101; RESP 14–17; TEMP 36.2–36.6; O2SAT 97–99; BMI 22.3
--- NOTE | 2024-01-09 08:17 | MHC.SHP ---
Pre-Procedural Eval Section A - 24 Hr Update-Section A only Date of Service: 01/09/24 The patient is an INPATIENT: No Changes since office visit: No Cold of Flu in the past 2 weeks, No New Medical Problems, No Changes in Medication and No Patient answered all questions The patient has been examined within 24 hours of the surgical procedure. The History & Physical has been completed within 30 days and I have reviewed it.: Yes Section B - Complete if H&P > 30 days Chief Complaint: Other nonspecific abnormal finding of lung field Allergies: Allergies Allergy/AdvReac Type Severity Reaction Status Date / Time No Known Allergies Allergy Verified 01/03/24 13:49 [No Known Allergies*] Plan I have reviewed the history and physical and performed a pertinent physical examination on my patient. No changes have occurred unless specified. Time Spent With Patient Time: Total time managing care of this patient today ____ minutes.
--- NOTE | 2024-01-09 08:48 | P.CONAN_ITS ---
[facility] Active Problems Active Problems: All Active Problems Chronic cough (Acute) Mass of upper lobe of right lung (Acute) Nicotine dependence, cigarettes, uncomplicated (Acute) Vitamin D deficiency (Acute) Hyperpigmented skin lesion (Acute) Family history of colon cancer in father (Acute) Hyperlipidemia (Acute) Trigger finger of left thumb (Acute) Past Medical History Medical History Chronic cough Basal cell carcinoma Trigger finger Nicotine dependence, cigarettes, uncomplicated Vitamin D deficiency Hyperpigmented skin lesion Family history of colon cancer in father Hyperlipidemia Functional capacity: independent ambulation Patient : No Family History Family History Father Colon cancer Mother Hypertension Family history of problems with anesthesia: No Surgical History Surgical History History of cholecystectomy History of carpal tunnel surgery of right wrist S/P gastric surgery History of appendectomy History of Problems with Anesthesia: No Social History Social History Housing: House Alcohol intake: current Alcohol intake frequency: holidays/special occasions only Patient Tobacco Use Status: Former Tobacco user Tobacco use type: Cigarette Cigarettes Per Day: 4 e-Cigarette/Vaping Use: Never Used Advance Directives: No Advance Directives Information Provided: Yes Current occupational status: employed 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 Discussed and Chart Reviewed Final Anesthetic Review Family History of Problems with Anesthesia: No History of Problems with Anesthesia: No NPO: Yes ASA Class: III Final Preanesthetic Review: Meds/Allgs Chart Reviewed, Consent Obtained/Reviewed and Anes Risks/Benef Reviewed Patient Risk: Intermediate Procedure Risk: Intermediate Anesthetic Plan Anesthetic Plan: GA Disposition: Standard PACU
[2024-01-09] MEDS: Lactated Ringers 1,000 ML 100 ML IVCONT (09:04)
[2024-01-09] MEDS: Albuterol Sulfate (0.083%) 2.5 MG/3 ML VIAL.NEB INHALE (09:06)
--- NOTE | 2024-01-09 21:59 | P.BOP_ITS ---
Brief Operative Note Date of Service: 01/09/24 Pre-op diagnosis: lung mass Post-op diagnosis: other (lung cancer, RUL obstruction) Procedure: EBUS with TBNA right hilar mass and bronchoscopy with endobronchial biopsies and washings Surgeon: Sina Del Real MD Anesthesia: GETA Was an Supervisor Beet End used for this Procedure?: No Estimated blood loss (mL): 0 Pathology: other (JUAN bronchus) Condition: stable Disposition: same day
--- NOTE | 2024-01-10 13:02 | OP_ITS ---
DATE OF SERVICE: 01/09/2024 SURGEON: Sina Del Real MD PREOPERATIVE DIAGNOSIS: POSTOPERATIVE DIAGNOSIS: Lung cancer, right upper lobe obstruction. PROCEDURE PERFORMED: ESTIMATED BLOOD LOSS: COMPLICATIONS: ANESTHESIA: General endotracheal anesthesia provided. ASSISTANTS: None. SPECIMENS: ASA CLASSIFICATION: II. PREOPERATIVE DIAGNOSES: Lung mass, mediastinal hilar mass. PROCEDURES PERFORMED: Endobronchial ultrasound bronchoscopy with transbronchial needle aspiration with a right hilar mass and bronchoscopy with endobronchial biopsies and washings. DESCRIPTION OF PROCEDURE: After the patient was adequately sedated, a flexible digital bronchoscope with the endobronchial ultrasound (EBUS) was inserted via the ET tube to the level of the main leah. The main leah was indeed distorted. Using the ultrasound guidance, the right hilar mass was appreciated. It was heterogeneous and difficult to see borders because of the ill-defined nature of it. Using a 19-gauge needle. Transbronchial needle aspirations were collected at the right hilar mass directly. The on site pathologies were able to look at the specimens. Some irregular tumors were appeared, although not clear. Therefore, multiple biopsies were collected and placed into additional saturated solution for additional analysis. The EBUS scope was then removed and replaced with a regular bronchoscopy. The tracheobronchial tree was exsanguinated to the subsegmental level except for the right upper lobe where it cannot be visualized secondary to the obstruction. The mucosa appeared normal with some cobblestoning and some irregularity in the right mainstem bronchus area followed to the bronchus intermedius. After that the airways were clear without any endobronchial lesions. The mucosa was also friable, oozing blood. Using forceps, multiple biopsies were collected from the right mainstem bronchus and sent to the pathologist. Bronchial washings were also collected, sent to cytology. The bronchoscope was then removed. The total endoscopic time approximately 45 minutes. The patient tolerated the procedure well. No evidence of any complications. Patient reached good hemostasis without any additional interventions. MD RG Canela/ELISHA / [phone]
== END 2024-01-09 12:10 | disposition home or self-care (01) ==
PROVIDERS: PCP Internal Medicine; Visit Provider Hospitalist
PROC: (CPT 31652; principal; 2024-01-09 09:30)
DX: C34.01 Malignant neoplasm of right main bronchus (principal); J98.4 Other disorders of lung; R05.3 Chronic cough; R06.02 Shortness of breath; E55.9 Vitamin D deficiency, unspecified; E78.5 Hyperlipidemia, unspecified; Z85.828 Personal history of other malignant neoplasm of skin; Z80.0 Family history of malignant neoplasm of digestive organs; Z87.891 Personal history of nicotine dependence; Z98.890 Other specified postprocedural states
CPT/HCPCS: 31652; 31623; 87070; 87205; 88112; 88172; 88173; 88177; 88305; 88341; 88342; 94640; J0171; J1100; J2250; J2405; J2704; J3010

== ENCOUNTER → 2024-01-09 07:52 | Outpatient (BNV) | payer OTHER, SELFPAY | PROVIDERS: PCP Internal Medicine; Visit Provider Hospitalist | DX: R91.8 Other nonspecific abnormal finding of lung field (principal); J98.59 Other diseases of mediastinum, not elsewhere classified | CPT/HCPCS: 31625; 31652 ==

== ENCOUNTER 2024-01-24 09:27 | Outpatient (AMB) | payer OTHER, SELFPAY ==
[2024-01-24 09:35] VITALS: BP 120/80; PULSE 67; O2SAT 98; BMI 22.7
--- NOTE | 2024-01-24 09:35 | MHC.OFFVIS ---
Vital Signs 01/24/24 09:35 Height 5 ft 4 in Weight 132 lb BMI 22.7 BP 120/80 Blood Pressure Location Rt brachial Position Sitting Pulse 67 Pulse Source Pulse Oximeter Pulse Oximetry (%) 98 Oxygen Delivery Method Room Air Intake Visit Reasons: S/p ebus Grain Drier Required: No Allergies No Known Allergies [No Known Allergies*] Allergy (Verified 01/24/24 09:38) HPI Comments Details: The patient is a 63 year woman with a history of tobacco dependency presenting with a normal CT scan the chest. Apparently she had been having worsening cough. The cough is significant. He continued to worsen. Nonproductive in nature. Also associated with shortness of breath. Also had difficulty with chest tightness. She could not tolerate the symptoms and decided to go to the ER evaluate there she did have a CTA. The personally reviewed the demonstrating a large mediastinal mass which appears to be to some degree necrotic in nature. She was referred to thoracic surgery. Was then referred to Pulmonary. We did do a telehealth visit. The patient understands that she has a concerning condition that needs to have a biopsy. We did talk about different alternatives of diagnostic intervention. The highest yield lowest risk procedure would be to perform a bronchoscopy with endobronchial ultrasound to get sampling. Will try to schedule that as soon as possible at this time. In the meantime we did talk about treating her underlying symptoms to allow her to be able to feel better at this time. 01/24/2024 the patient is here for pulmonary follow-up visit. She is status post bronchoscopy with endobronchial ultrasound bronchoscopy. The bronchoscopy demonstrated complete opacification or obstruction of the right upper lobe with very abnormal anatomy. With forceps we are able to get endobronchial biopsies of the abnormal area in the right mainstem bronchus and also where we to do EBUS with transbronchial needle aspirations. Is a very poorly differentiated cancer difficult to differentiate. However, based on the testing available it appears to be non-small cell. Additional molecular markers have been sent and we are still waiting for the results. The patient is having significant back pain and cough. Cough seems to be better after the prednisone courses. In addition to that she is waiting for a PET scan scheduled for early next week. She did have PFTs today which will be helpful in further assessing pulmonary capacity. However, due to the location of the mass is unlikely that this is going to be a surgical case. Will wait for the PET scan to be able to get a better radiological staging of disease. But based on the endobronchial disease involving the central airways and also the fact that this mask is pushing the mediastinum, unfortunately, this is not a surgical case. Still waiting for the molecular markers to be able to provide her at least with the best option possible. She will be seen Hematology Oncology tomorrow. The patient also may need radiation oncology which she can do in a nearby hospital. Will keep her under FMLA out of work at this times that she is not able to work with this very advanced cancer. [facility] Medical History (Updated 01/24/24 @ 20:42 by Sina Del Real MD) Chest pain Non-small cell lung cancer Lung cancer Chronic cough Basal cell carcinoma Nicotine dependence, cigarettes, uncomplicated Vitamin D deficiency Hyperpigmented skin lesion Family history of colon cancer in father Hyperlipidemia Surgical History (Updated 01/17/24 @ 08:53 by Maite Godoy PA-C) History of basal cell carcinoma (BCC) excision S/P gastric surgery History of cholecystectomy History of appendectomy History of hand surgery History of carpal tunnel surgery of right wrist Family History Father Colon cancer Mother Hypertension Social History Housing: House Are you a primary home care physical therapist to a significant other at home: No Do you presently have visiting nurse or other home services: No Alcohol intake: current Alcohol intake frequency: does not drink Patient Tobacco Use Status: Former Tobacco user Tobacco use type: Cigarette Cigarettes Per Day: 4 e-Cigarette/Vaping Use: Never Used Current occupational status: employed 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, 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 Cognitive needs: No Hearing needs: No Vision needs: No Review of Systems Const Denies fever(s) Eyes Reports no additional complaints ENT Reports no additional complaints Card Reports chest pain and Reports dyspnea on exertion Resp Reports chest congestion, Reports cough and Reports dyspnea on exertion GI Reports no additional complaints Musc Reports back pain Skin/Breast Denies rash Neuro Reports no additional complaints Mahad/Lymph Reports lymphadenopathy Aller/Immun Reports no additional complaints Physical Exam Vital Signs: Last Vital Signs Pulse 67 01/24/24 09:35 BP 120/80 01/24/24 09:35 Pulse Ox 98 01/24/24 09:35 Oxygen Delivery Method Room Air 01/24/24 09:35 BMI result Body Mass Index 22.7 Const General: comfortable and anxious HEENT Head: Yes normocephalic Neck Neck: Yes supple Chest Chest palpation & inspection: normal inspection of the chest Resp Effort & Inspection: normal respiratory effort Auscultation: diminished lung sounds Cardio Heart sounds: S1 normal heart sound present and S2 normal heart sound present GI Palpation (GI): Soft to palpation Skin General skin exam: no rashes or lesions noted Extrem General: Yes no clubbing, cyanosis or edema Assessment & Plan Assessment & Plan (1) Mass of upper lobe of right lung: Code(s): R91.8 - Other nonspecific abnormal finding of lung field Category: Surgical (2) Chronic cough: Code(s): R05.3 - Chronic cough Category: Medical (3) Non-small cell lung cancer: Comment: poorly differentiated Code(s): C34.90 - Malignant neoplasm of unspecified part of unspecified bronchus or lung Category: Medical Qualifiers: Laterality: right Qualified Code(s): C34.91 - Malignant neoplasm of unspecified part of right bronchus or lung (4) Chest pain: Code(s): R07.9 - Chest pain, unspecified Category: Medical Qualifiers: Chest pain type: intercostal pain Qualified Code(s): R07.82 - Intercostal pain Plan extensive mass RUL/hilum, awaitnig molecular markers pain medicine PFTs today PET next week cough medicine Heme Onc visit tomorrow F/U 4 weeks Medications: New gabapentin 300 mg PO BEDTIME 30 caps 6RF 30 days lorazepam (Ativan) 0.5 mg PO DAILY PRN 2 tabs 0RF anxiety tramadol 50 mg PO Q8H PRN 30 tabs 0RF pain Coding Level of Care Code Est Pt Level 5 (85498) Diagnoses Mass of upper lobe of right lung R91.8 Chronic cough R05.3 Non-small cell cancer of right lung C34.91 Laterality: right Intercostal pain R07.82 Chest pain type: intercostal pain Time Spent (min) 45
== END 2024-01-24 10:25 | disposition home or self-care (01) ==
PROVIDERS: PCP Internal Medicine; Visit Provider Hospitalist
DX: C34.91 Malignant neoplasm of unspecified part of right bronchus or lung (principal)
CPT/HCPCS: 94060; 94727; 94729; 99215

== ENCOUNTER → 2024-01-24 09:27 | Outpatient (BNVA) | payer OTHER, SELFPAY | PROVIDERS: PCP Internal Medicine; Visit Provider Hospitalist ==

== ENCOUNTER 2024-01-24 10:20 | Outpatient (REF) | payer OTHER, SELFPAY ==
--- NOTE | 2024-01-24 10:00 | PFT_ITS ---
Flows: FEV1: 71 % of predicted at 1.70 L FVC: 109 % of predicted at 3.33 L FEV1/FVC: 51 % Bronchodilator response: Absent Volumes: Total lung capacity: 89 % of predicted at 4.51 L Residual volume: 66 % of predicted at 1.18 L Slow vital capacity: 101 % of predicted at 3.33 L Expiratory reserve volume: 145 % of predicted at 1.15 L Diffusion capacity: Mildly decreased, corrects to normal after adjustment for alveolar ventilation. Impression: Moderate obstructive ventilatory defect with no bronchodilator response. Decreased diffusion capacity suggests emphysema. MTDD
== END 2024-01-24 10:21 | disposition home or self-care (01) ==
LOC: HO.RESP 10:20
PROVIDERS: PCP Internal Medicine; Visit Provider Hospitalist
DX: C34.90 Malignant neoplasm of unspecified part of unspecified bronchus or lung (principal)
CPT/HCPCS: 99212

== ENCOUNTER → 2024-01-28 10:20 | Outpatient (BNV) | payer OTHER, SELFPAY | PROVIDERS: PCP Internal Medicine; Referring Provider Hospitalist; Visit Provider Internal Medicine Medical Oncology | DX: C34.11 Malignant neoplasm of upper lobe, right bronchus or lung (principal) | CPT/HCPCS: 99204; 99213; 99214 ==

== ENCOUNTER 2024-01-30 08:59 | Outpatient (AMB) | payer OTHER, SELFPAY ==
--- NOTE | 2024-01-30 09:06 | MHC.OFFVIS ---
Vital Signs 01/30/24 09:13 Height 5 ft 4 in Weight 131 lb BMI 22.5 BP 120/72 Blood Pressure Location Rt brachial Position Sitting Pulse 72 Intake Visit Reasons: PET scan follow up Intake Note: Patient here to discuss PET scan from [facility] [place]/ [facility] on 01-28-2024. Ring Maker Required: No Accompanied by: Spouse Allergies No Known Allergies [No Known Allergies*] Allergy (Verified 01/30/24 09:14) HPI Comments Details: Patient presents with her significant other. We discussed the results of her PET scan. She has also been seen by Oncology. Patient had PET scan results were reviewed with her. Patient is scheduled to meet with radiation therapy at [facility]. She also received chemotherapy per Oncology. At present no acute surgical issues to be addressed. Patient has non operative candidate. Should the patient require Port-A-Cath, I discussed with her that can be arranged by me. [facility] Medical History (Updated 01/28/24 @ 15:58 by Le Marr MD) Chest pain Chronic cough Basal cell carcinoma Vitamin D deficiency Hyperpigmented skin lesion Family history of colon cancer in father Hyperlipidemia Surgical History (Updated 01/30/24 @ 09:36 by Reji Coronado MD) Non-small cell lung cancer Nicotine dependence, cigarettes, uncomplicated History of bronchoscopy History of basal cell carcinoma (BCC) excision S/P gastric surgery History of cholecystectomy History of appendectomy History of hand surgery History of carpal tunnel surgery of right wrist Family History Father Colon cancer Mother Hypertension Social History (Updated 01/28/24 @ 15:44 by Albino Kan) Housing: House Are you a primary daycare director to a significant other at home: No Do you presently have visiting nurse or other home services: No Alcohol intake: current Alcohol intake frequency: does not drink Patient Tobacco Use Status: Former Tobacco user Tobacco use type: Cigarette e-Cigarette/Vaping Use: Never Used service: No Current occupational status: employed 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, 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 Cognitive needs: No Hearing needs: No Vision needs: No Physical Exam Vital Signs: Last Vital Signs Pulse 72 01/30/24 09:13 BP 120/72 01/30/24 09:13 BMI result Body Mass Index 22.5 Assessment & Plan Assessment & Plan (1) Non-small cell lung cancer: Comment: (poorly differentiated carcinoma RUL - dx 12/2023) Code(s): C34.90 - Malignant neoplasm of unspecified part of unspecified bronchus or lung Category: Surgical Qualifiers: Laterality: right Qualified Code(s): C34.91 - Malignant neoplasm of unspecified part of right bronchus or lung (2) Mass of upper lobe of right lung: Code(s): R91.8 - Other nonspecific abnormal finding of lung field Category: Surgical (3) Chronic cough: Code(s): R05.3 - Chronic cough Category: Medical (4) Nicotine dependence, cigarettes, uncomplicated: Code(s): F17.210 - Nicotine dependence, cigarettes, uncomplicated Category: Surgical Plan As noted above, patient will be treated with radiation and chemotherapy for her lung cancer. Unfortunately she is a non operative candidate. She Port-A-Cath be required, patient will contact me. All questions answered. Coding Level of Care Code Est Pt Level 4 (04167) Diagnoses Non-small cell cancer of right lung C34.91 Laterality: right Mass of upper lobe of right lung R91.8 Chronic cough R05.3 Nicotine dependence, cigarettes, uncomplicated F17.210
[2024-01-30 09:13] VITALS: BP 120/72; PULSE 72; BMI 22.5
== END 2024-01-30 09:34 | disposition home or self-care (01) ==
PROVIDERS: PCP Internal Medicine; Visit Provider Surgery
DX: C34.91 Malignant neoplasm of unspecified part of right bronchus or lung (principal); R91.8 Other nonspecific abnormal finding of lung field; R05.3 Chronic cough; F17.210 Nicotine dependence, cigarettes, uncomplicated
CPT/HCPCS: 99214

== ENCOUNTER → 2024-01-30 08:59 | Outpatient (BNVA) | payer OTHER, SELFPAY | PROVIDERS: PCP Internal Medicine; Visit Provider Surgery | DX: C34.91 Malignant neoplasm of unspecified part of right bronchus or lung (principal); R91.8 Other nonspecific abnormal finding of lung field; R05.3 Chronic cough; F17.210 Nicotine dependence, cigarettes, uncomplicated | CPT/HCPCS: 99212 ==

== ENCOUNTER 2024-01-31 08:46 | Outpatient (REF) | payer OTHER, SELFPAY ==
--- NOTE | ~2024-01-31 | MM_ITS ---
EXAMINATION: MM SCREENING DIGITAL BREAST TOMOSYNTHESIS, BILATERAL CLINICAL INFORMATION: Screening. Asymptomatic. COMPARISON: Mammography: Comparison is made with available priors TECHNIQUE: Digital breast mammography with tomosynthesis is performed in both the craniocaudal and mediolateral oblique views along with computer-aided detection (CAD). FINDINGS: The breasts are heterogeneously dense, which may obscure small masses (ACR BI-RADS breast composition Category c). Marker clip in the upper outer breast adjacent to a circumscribed oval mass stable dating back to 2020. There are no significant masses, abnormal calcifications, or other abnormalities. MM/MM tomosynthesis screening BI IMPRESSION: No mammographic evidence of malignancy. ASSESSMENT: BI-RADS BI-RADS 2 - Benign Findings RECOMMENDATION: Routine annual mammography screening. 1 year F/U This examination should not preclude the clinical evaluation of a suspicious palpable abnormality. This patient's information was entered into a reminder system with a target due date for their next mammogram. Electronically signed by: Celeste Varma DO 02/11/2024 02:15 PM EDT
== END 2024-01-31 08:47 | disposition home or self-care (01) ==
LOC: HO.MAMMO 08:46
PROVIDERS: PCP Internal Medicine; Visit Provider Internal Medicine
DX: Z12.31 Encounter for screening mammogram for malignant neoplasm of breast (principal)
CPT/HCPCS: 77063; 77067

== ENCOUNTER → 2024-01-31 09:00 | Outpatient (BNV) | payer OTHER, SELFPAY | PROVIDERS: PCP Internal Medicine; Visit Provider Internal Medicine | DX: Z12.31 Encounter for screening mammogram for malignant neoplasm of breast (principal) | CPT/HCPCS: 77063; 77067 ==

== ENCOUNTER 2024-02-13 11:44 | Day surgery (SDC) | payer OTHER, SELFPAY ==
--- NOTE | ~2024-02-13 | IR_ITS ---
CLINICAL HISTORY: Right lung cancer. The patient presents to interventional radiology for placement of a port for chemotherapy. PROCEDURES: 1. Real-time ultrasound-guided access into the left internal jugular vein after documentation of selected vessel patency, and permanent image storing in the patient records. 2. Placement of a 6.0 Jamaican single-lumen Slim power port. CLINICIAN: Cooper Rosario PA-C MEDICATIONS: - Versed 2 mg, Fentanyl 75 mcg, Lidocaine 1% 10 mL SQ -Antibiotics: Ancef 2g -For additional details, please see nursing flowsheet. Complications: None. Estimated blood loss: <5 ml Specimens: None. Contrast: None. Fluoroscopy time: 1.5 min MODERATE SEDATION TIME: 32 min PROCEDURE NOTE: The procedure, risks, benefits, and alternatives were carefully explained to the patient and written informed consent was obtained. The patient was placed supine on the fluoroscopy table. A timeout was performed. The left neck and chest was prepped and draped in usual sterile fashion. Maximum barrier technique was utilized. Local anesthesia was administered to the access site with 1% lidocaine. Under ultrasound guidance, the left internal jugular vein was accessed with a 5 fr micropuncture set. A 0.035 in wire was advanced into the IVC. A peel-away sheath was advanced over the wire and into the SVC, and the wire was removed. Next, subcutaneous lidocaine was administered to the chest. The port pocket was created after the skin incision, utilizing blunt dissection. Using blunt dissection, a subcutaneous tunnel was created that connects from the port pocket to the venotomy site. Through the peel-away sheath, the 6.0 Jamaican port catheter was placed. The catheter position was verified with fluoroscopy to be at the superior vena cava/right atrial junction. The port was connected to the catheter and was placed in the pocket. The venotomy site was closed with a 3-0 Vicryl subcutaneous suture. The port incision site was closed with interrupted 3-0 Vicryl subcutaneous sutures and surgical glue. Prior to closing the skin, 1 g of Ancef solution was placed in the pocket. The port was tested, flushed, and packed with heparin per routine protocol. The patient tolerated the procedure well. The patient was stable after the procedure and was transferred to the PACU. The procedure was performed under moderate sedation and with a dedicated nurse with continuous monitoring of vital signs. A permanent image of the ultrasound the neck and fluoroscopic image of the chest was saved and sent to PACS. FINDINGS: 1. Patent left internal jugular vein 2. Placement of a 6.0 Jamaican single lumen power port. 3. Port flushes and aspirates very well with a 10 mL syringe. No pneumothorax. IR/IR cvc insert tunnel w prt/product introduction manager IMPRESSION: Placement of a 6.0 Jamaican single-lumen slim power port. PLAN: - The patient will be discharged home when stable by sedation protocol. - Port may be used immediately. This procedure was performed by Cooper Rosario PA-C, and directly supervised by Dr. Garza Electronically signed by: Darwin Garza MD 02/21/2024 02:10 PM EDT
[2024-02-13 13:01] VITALS: BMI 21.8
[2024-02-13 13:02] VITALS: BP 125/83; PULSE 83; RESP 18; TEMP 37.3; O2SAT 95
[2024-02-13 13:06] LABS: INTERNATIONAL NORM RATIO 1.1 (0.9-1.1); Prothrombin Time 12.8 SEC (10.9-12.4)
[2024-02-13] MEDS: Albuterol/Iprat 2.5/0.5MG 3 ML AMPUL.NEB INHALE (13:19)
--- NOTE | 2024-02-13 13:29 | MHC.SHP ---
Pre-Procedural Eval Section A - 24 Hr Update-Section A only Date of Service: 02/13/24 Section B - Complete if H&P > 30 days Chief Complaint: facilitate chemo--service date 02/15/24 Details of Present Illness: 63 y/o female with right lung cancer Relevant Family History (Specify if Yes): No Relevant Social History: Tobacco Use Present Medications: see Short Stay Collaborative assessment Medical History: Significant History History of Previous Operations: Relevant previous surgery/procedure and date(s) Allergies: Allergies Allergy/AdvReac Type Severity Reaction Status Date / Time No Known Allergies Allergy Verified 01/30/24 09:14 [No Known Allergies*] Review of Systems Sugical H&P ROS: Negative: Constitution, Cardiovascular and Integumentary and Yes, Specify: Respiratory (wheezes) Exam Surgical H&P Exam: Normal: Heart, Normal: Skin (thin) and Normal: Neurological and Significant Findings: Lungs (b/i expiratory wheezes) Plan 63 y/o female with right lung cancer and poor iv access -Duoneb -Left port Time Spent With Patient Time: Total time managing care of this patient today ____ minutes.
[2024-02-13 14:50] VITALS: BP 106/44; PULSE 64; RESP 16; TEMP 37.1; O2SAT 97
[2024-02-13 15:05] VITALS: BP 99/57; PULSE 69; RESP 16; TEMP 36.8; O2SAT 93
== END 2024-02-13 15:15 | disposition home or self-care (01) ==
PROVIDERS: Physician Assistant Surgical; Student in an Organized Health Care Education/Training Program; PCP Internal Medicine; Visit Provider Internal Medicine Medical Oncology
DX: Z45.2 Encounter for adjustment and management of vascular access device (principal); C34.90 Malignant neoplasm of unspecified part of unspecified bronchus or lung
CPT/HCPCS: 36415; 36561; 76937; 85610; 85730; 99152; 99153; C1769; C1788; J0131; J0690; J1642; J1644; J2003; J2250; J2310; J3010

== ENCOUNTER → 2024-02-13 13:06 | Outpatient (BNV) | payer OTHER, SELFPAY | PROVIDERS: PCP Internal Medicine; Visit Provider Physician Assistant Surgical | DX: C34.90 Malignant neoplasm of unspecified part of unspecified bronchus or lung (principal); Z45.2 Encounter for adjustment and management of vascular access device | CPT/HCPCS: 36561; 76937 ==

== ENCOUNTER 2024-02-21 08:46 | Outpatient (AMB) | payer OTHER, SELFPAY ==
[2024-02-21 08:57] VITALS: BP 134/78; PULSE 78; O2SAT 97; BMI 21.6
--- NOTE | 2024-02-21 08:57 | MHC.OFFVIS ---
Vital Signs 02/21/24 08:57 Height 5 ft 4 in Weight 125 lb 10.616 oz BMI 21.6 BP 134/78 Blood Pressure Location Lt brachial Position Sitting Pulse 78 Pulse Source Pulse Oximeter Pulse Oximetry (%) 97 Oxygen Delivery Method Room Air Intake Visit Reasons: PET/PFT Follow Up Electronic Scanner Operator Required: No Allergies No Known Allergies [No Known Allergies*] Allergy (Verified 02/21/24 08:59) HPI Comments Details: The patient is a 63 year woman with a history of tobacco dependency presenting with a normal CT scan the chest. Apparently she had been having worsening cough. The cough is significant. He continued to worsen. Nonproductive in nature. Also associated with shortness of breath. Also had difficulty with chest tightness. She could not tolerate the symptoms and decided to go to the ER evaluate there she did have a CTA. The personally reviewed the demonstrating a large mediastinal mass which appears to be to some degree necrotic in nature. She was referred to thoracic surgery. Was then referred to Pulmonary. We did do a telehealth visit. The patient understands that she has a concerning condition that needs to have a biopsy. We did talk about different alternatives of diagnostic intervention. The highest yield lowest risk procedure would be to perform a bronchoscopy with endobronchial ultrasound to get sampling. Will try to schedule that as soon as possible at this time. In the meantime we did talk about treating her underlying symptoms to allow her to be able to feel better at this time. 01/24/2024 the patient is here for pulmonary follow-up visit. She is status post bronchoscopy with endobronchial ultrasound bronchoscopy. The bronchoscopy demonstrated complete opacification or obstruction of the right upper lobe with very abnormal anatomy. With forceps we are able to get endobronchial biopsies of the abnormal area in the right mainstem bronchus and also where we to do EBUS with transbronchial needle aspirations. Is a very poorly differentiated cancer difficult to differentiate. However, based on the testing available it appears to be non-small cell. Additional molecular markers have been sent and we are still waiting for the results. The patient is having significant back pain and cough. Cough seems to be better after the prednisone courses. In addition to that she is waiting for a PET scan scheduled for early next week. She did have PFTs today which will be helpful in further assessing pulmonary capacity. However, due to the location of the mass is unlikely that this is going to be a surgical case. Will wait for the PET scan to be able to get a better radiological staging of disease. But based on the endobronchial disease involving the central airways and also the fact that this mask is pushing the mediastinum, unfortunately, this is not a surgical case. Still waiting for the molecular markers to be able to provide her at least with the best option possible. She will be seen Hematology Oncology tomorrow. The patient also may need radiation oncology which she can do in a nearby hospital. Will keep her under FMLA out of work at this times that she is not able to work with this very advanced cancer. 02/21/2024 the patient is here for pulmonary follow-up visit. She is going to start chemotherapy. Her genetic mutation came back positive for KRAS. She also has PD1 positive. She will start her therapy and then consider more targeted therapy in the future. In the meantime she is having some issues with coughing addition to stridor. Seems to get worse when she is coughing or prime. She does have cough medication. Will go ahead and give her some Solu-Medrol today. She will receive her 1st dose of chemo today. She is also on steroids for chemo. The patient will be receiving a nebulizer treatment as well. Will provide her with a nebulizer for her to continue her nebulizer twice a day at home. [facility] Medical History (Updated 02/21/24 @ 09:29 by Sina Del Real MD) COPD (chronic obstructive pulmonary disease) Chest pain Chronic cough Basal cell carcinoma Vitamin D deficiency Hyperpigmented skin lesion Family history of colon cancer in father Hyperlipidemia Surgical History (Updated 01/30/24 @ 09:36 by Reji Coronado MD) History of bronchoscopy Non-small cell lung cancer History of basal cell carcinoma (BCC) excision History of hand surgery History of cholecystectomy History of carpal tunnel surgery of right wrist Nicotine dependence, cigarettes, uncomplicated S/P gastric surgery History of appendectomy Family History Father Colon cancer Mother Hypertension Social History (Updated 01/28/24 @ 15:44 by Albino Kan) Housing: House Are you a primary wild animal caretaker to a significant other at home: No Do you presently have visiting nurse or other home services: No Alcohol intake: current Alcohol intake frequency: does not drink Patient Tobacco Use Status: Former Tobacco user Tobacco use type: Cigarette e-Cigarette/Vaping Use: Never Used service: No Current occupational status: employed 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, 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 Cognitive needs: No Hearing needs: No Vision needs: No Review of Systems Const Denies fever(s) Eyes Reports no additional complaints ENT Reports no additional complaints Card Reports chest pain and Reports dyspnea on exertion Resp Reports chest congestion, Reports cough, Reports dyspnea on exertion, Reports stridor and Reports wheezing GI Reports no additional complaints Musc Reports back pain Skin/Breast Denies rash Neuro Reports no additional complaints Mahad/Lymph Reports lymphadenopathy Aller/Immun Reports no additional complaints and Reports wheezing Physical Exam Vital Signs: Last Vital Signs Pulse 78 02/21/24 08:57 BP 134/78 02/21/24 08:57 Pulse Ox 97 02/21/24 08:57 Oxygen Delivery Method Room Air 02/21/24 08:57 BMI result Body Mass Index 21.6 Const General: comfortable and anxious HEENT Head: Yes normocephalic Neck Neck: Yes supple Chest Chest palpation & inspection: normal inspection of the chest Resp Effort & Inspection: normal respiratory effort Auscultation: diminished lung sounds Cardio Heart sounds: S1 normal heart sound present and S2 normal heart sound present GI Palpation (GI): Soft to palpation Skin General skin exam: no rashes or lesions noted Extrem General: Yes no clubbing, cyanosis or edema Office Procedures Nebulizer Treatment Nebulizer Treatment [id number] RX initial, or Nebulizer Subsequent Treatment Office Meds methylprednisolone sod suc(PF) 125 mg/2 mL solution for injection Performing Provider: Sina Del Real MD Performing Location: [facility] [place] Pulmonology Services Administered by: Radha Sweeney LPN on 02/21/24 09:38 Dose Route Admin Location Dispensed Lot Number Expiration Date [facility] Marketing Editor 125 mg IM R buttock 2 ea [id number] 12/28/25 7131-8483-98 [employer] Comments: total dose given 125mg/2ml albuterol sulfate 2.5 mg/3 mL (0.083 %) solution for nebulization Performing Provider: Sina Del Real MD Performing Location: [facility] [place] Pulmonology Services Administered by: Radha Sweeney LPN on 02/21/24 09:38 Dose Route Admin Location Dispensed Lot Number Expiration Date [place] [employer] 2.5 mg inhalation 3 mL [id number] 07/28/24 0348-5913-62 [employer] Results Reviewed Results Reviewed: PFTs reviewed with moderate obstruction [address] [address] Pulmonary Function Report Signed Patient: Angelina Haile MR#: [id number] : 1960 Acct:[id number] Age/Sex: 63 / F ADM Date: 01/24/24 Loc: HO.RESP Attending Dr: Sina Del Real MD Ordering Physician: Sina Del Real MD Date of Service: 01/24/24 Procedure(s): PFT pulmonary function test Accession Number(s): [id number] cc: Sina Del Real MD~ Flows: FEV1: 71 % of predicted at 1.70 L FVC: 109 % of predicted at 3.33 L FEV1/FVC: 51 % Bronchodilator response: Absent Volumes: Total lung capacity: 89 % of predicted at 4.51 L Residual volume: 66 % of predicted at 1.18 L Slow vital capacity: 101 % of predicted at 3.33 L Expiratory reserve volume: 145 % of predicted at 1.15 L Diffusion capacity: Mildly decreased, corrects to normal after adjustment for alveolar ventilation. Impression: Moderate obstructive ventilatory defect with no bronchodilator response. Decreased diffusion capacity suggests emphysema. Dictated By: Elfego Arriola MD Signed By: <Electronically signed by Elfego Arriola MD> 01/30/24 1140 DD/ 1259 TD/TT: 01/29/24 1259 [employer] Consultant: Assessment & Plan Assessment & Plan (1) Non-small cell lung cancer: Comment: (poorly differentiated carcinoma RUL - dx 12/2023) Code(s): C34.90 - Malignant neoplasm of unspecified part of unspecified bronchus or lung Category: Surgical Qualifiers: Laterality: right Qualified Code(s): C34.91 - Malignant neoplasm of unspecified part of right bronchus or lung (2) Mass of upper lobe of right lung: Code(s): R91.8 - Other nonspecific abnormal finding of lung field Category: Surgical (3) Chronic cough: Code(s): R05.3 - Chronic cough Category: Medical (4) Nicotine dependence, cigarettes, uncomplicated: Code(s): F17.210 - Nicotine dependence, cigarettes, uncomplicated Category: Surgical (5) COPD (chronic obstructive pulmonary disease): Code(s): J44.9 - Chronic obstructive pulmonary disease, unspecified Category: Medical Qualifiers: COPD type: chronic bronchitis Chronic bronchitis type: simple Qualified Code(s): J41.0 - Simple chronic bronchitis Plan Albuterol neb x 1 now solumedrol 125mg IM x 1 now Start Albuterol/BUdesonide BID via nebulizer*rinse mouth* cough medicine Start Chemo/XRT ?KRAS targeted therapy F/U 2 months Orders: Orders AMB Methylprednisolone Sod Succ Injection Today J41.0 - Simple chronic bronchitis AMB Nebulizer Treatment Today J41.0 - Simple chronic bronchitis Medications: New albuterol sulfate 2.5 mg (3 mL) inhalation BID 30 days 180 mL 11RF J41.0 - Simple chronic bronchitis budesonide 0.5 mg (2 mL) inhalation BID 30 days 120 mL 11RF J44.9 - Chronic obstructive pulmonary disease, unspecified Coding Level of Care Code Est Pt Level 5 (67698) Diagnoses Non-small cell cancer of right lung C34.91 Laterality: right Mass of upper lobe of right lung R91.8 Chronic cough R05.3 Nicotine dependence, cigarettes, uncomplicated F17.210 Simple chronic bronchitis J41.0 COPD type: chronic bronchitis Chronic bronchitis type: simple CPT Codes Nebulizer Treatment - Nebulizer Treatment, initial or subsequent: [id number]/MDI RX initial, or Nebulizer Subsequent Treatment ([id number]) Time Spent (min) 45
== END 2024-02-21 09:42 | disposition home or self-care (01) ==
PROVIDERS: PCP Internal Medicine; Visit Provider Hospitalist
DX: C34.11 Malignant neoplasm of upper lobe, right bronchus or lung (principal); J41.0 Simple chronic bronchitis; F17.210 Nicotine dependence, cigarettes, uncomplicated
CPT/HCPCS: 99215

== ENCOUNTER → 2024-02-21 08:46 | Outpatient (BNVA) | payer OTHER, SELFPAY | PROVIDERS: PCP Internal Medicine; Visit Provider Hospitalist | DX: J41.0 Simple chronic bronchitis (principal); C34.91 Malignant neoplasm of unspecified part of right bronchus or lung; R91.8 Other nonspecific abnormal finding of lung field; F17.210 Nicotine dependence, cigarettes, uncomplicated; Z79.52 Long term (current) use of systemic steroids; Z79.899 Other long term (current) drug therapy | CPT/HCPCS: 94640; 96372; 99212 ==

== ENCOUNTER 2024-02-29 15:27 | Outpatient (REF) | payer OTHER, SELFPAY ==
--- NOTE | ~2024-02-29 | CT_ITS ---
EXAMINATION: CT HEAD WITH/WITHOUT CONTRAST CLINICAL INFORMATION: Staging COMPARISON: None available. TECHNIQUE: Contiguous axial imaging was performed from the skull base to vertex before and after the administration of 100 mL of Omnipaque [address] examination was performed using dose optimization techniques as appropriate, variously including the following: *Automated exposure control *Adjustment of mA and/or kV according to patient size (this includes techniques or standardized protocols for targeted exams where dose is matched to indication/reason for exam; i.e. extremities or head) *Use of iterative reconstruction technique DLP: 1451 mGy-cm RESULTS: There is no evidence of acute intracranial hemorrhage, acute large vessel infarct, midline shift or mass effect. The lopez-white differentiation is preserved. The ventricles and sulci are within normal limits in size and configuration. There is no evidence of hydrocephalus. There are no extraaxial collections. Osseous structures are intact. Paranasal sinuses and mastoid air cells are well aerated. No abnormal enhancement. CT/CT head/brain wo/w IV con IMPRESSION: No acute intracranial pathology. No evidence of metastatic disease. Electronically signed by: Deana Li MD 03/02/2024 08:58 AM EST
[2024-02-29] MEDS: iohexoL 350 MG/ML 75 ML INFUS..BTL 85 ML IV (16:03)
== END 2024-02-29 15:28 | disposition home or self-care (01) ==
LOC: HO.CT 15:27
PROVIDERS: Visit Provider Internal Medicine Medical Oncology
DX: C34.90 Malignant neoplasm of unspecified part of unspecified bronchus or lung (principal)
CPT/HCPCS: 70470; Q9967

== ENCOUNTER 2024-04-29 12:53 | Outpatient (AMB) | payer OTHER, SELFPAY ==
[2024-04-29 13:00] VITALS: BP 102/60; PULSE 92; O2SAT 98; BMI 21.4
--- NOTE | 2024-04-29 13:00 | MHC.OFFVIS ---
Vital Signs 04/29/24 13:00 Height 5 ft 4 in Weight 124 lb 8.979 oz BMI 21.4 BP 102/60 Blood Pressure Location Lt brachial Position Sitting Pulse 92 Pulse Source Doppler Pulse Oximetry (%) 98 Oxygen Delivery Method Room Air Intake Visit Reasons: Lung CA Allergies heparin Allergy (Verified 02/21/24 14:16) Difficulty Breathing HPI Comments Details: The patient is a 63 year woman with a history of tobacco dependency presenting with a normal CT scan the chest. Apparently she had been having worsening cough. The cough is significant. He continued to worsen. Nonproductive in nature. Also associated with shortness of breath. Also had difficulty with chest tightness. She could not tolerate the symptoms and decided to go to the ER evaluate there she did have a CTA. The personally reviewed the demonstrating a large mediastinal mass which appears to be to some degree necrotic in nature. She was referred to thoracic surgery. Was then referred to Pulmonary. We did do a telehealth visit. The patient understands that she has a concerning condition that needs to have a biopsy. We did talk about different alternatives of diagnostic intervention. The highest yield lowest risk procedure would be to perform a bronchoscopy with endobronchial ultrasound to get sampling. Will try to schedule that as soon as possible at this time. In the meantime we did talk about treating her underlying symptoms to allow her to be able to feel better at this time. 01/24/2024 the patient is here for pulmonary follow-up visit. She is status post bronchoscopy with endobronchial ultrasound bronchoscopy. The bronchoscopy demonstrated complete opacification or obstruction of the right upper lobe with very abnormal anatomy. With forceps we are able to get endobronchial biopsies of the abnormal area in the right mainstem bronchus and also where we to do EBUS with transbronchial needle aspirations. Is a very poorly differentiated cancer difficult to differentiate. However, based on the testing available it appears to be non-small cell. Additional molecular markers have been sent and we are still waiting for the results. The patient is having significant back pain and cough. Cough seems to be better after the prednisone courses. In addition to that she is waiting for a PET scan scheduled for early next week. She did have PFTs today which will be helpful in further assessing pulmonary capacity. However, due to the location of the mass is unlikely that this is going to be a surgical case. Will wait for the PET scan to be able to get a better radiological staging of disease. But based on the endobronchial disease involving the central airways and also the fact that this mask is pushing the mediastinum, unfortunately, this is not a surgical case. Still waiting for the molecular markers to be able to provide her at least with the best option possible. She will be seen Hematology Oncology tomorrow. The patient also may need radiation oncology which she can do in a nearby hospital. Will keep her under [facility] out of work at this times that she is not able to work with this very advanced cancer. 02/21/2024 the patient is here for pulmonary follow-up visit. She is going to start chemotherapy. Her genetic mutation came back positive for KRAS. She also has PD1 positive. She will start her therapy and then consider more targeted therapy in the future. In the meantime she is having some issues with coughing addition to stridor. Seems to get worse when she is coughing or prime. She does have cough medication. Will go ahead and give her some Solu-Medrol today. She will receive her 1st dose of chemo today. She is also on steroids for chemo. The patient will be receiving a nebulizer treatment as well. Will provide her with a nebulizer for her to continue her nebulizer twice a day at home. 04/29/2024 the patient is here for a pulmonary follow-up visit. Overall the patient has been doing well. She is completing her chemo and also radiation. After she will likely start immune therapy. Her respiratory symptoms a lot better. She continues use her respiratory therapy. She has not required anymore prednisone or antibiotics since we last spoke. Once she completes her chemoradiation cycles she will go ahead and get a restaging through Oncology. Will follow-up in 6 months. If any other issues arise she will call for an earlier assessment. [facility] Medical History (Updated 02/21/24 @ 10:23 by Le Marr MD) COPD (chronic obstructive pulmonary disease) Chest pain Chronic cough Basal cell carcinoma Vitamin D deficiency Hyperpigmented skin lesion Family history of colon cancer in father Hyperlipidemia Surgical History (Updated 01/30/24 @ 09:36 by Reji Coronado MD) History of bronchoscopy Non-small cell lung cancer History of basal cell carcinoma (BCC) excision History of hand surgery History of cholecystectomy History of carpal tunnel surgery of right wrist Nicotine dependence, cigarettes, uncomplicated S/P gastric surgery History of appendectomy Family History Father Colon cancer Mother Hypertension Social History (Updated 01/28/24 @ 15:44 by Albino Kan) Housing: House Are you a primary healthcare administration internship to a significant other at home: No Do you presently have visiting nurse or other home services: No Alcohol intake: current Alcohol intake frequency: does not drink Patient Tobacco Use Status: Former Tobacco user Tobacco use type: Cigarette e-Cigarette/Vaping Use: Never Used service: No Current occupational status: employed 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, 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 Cognitive needs: No Hearing needs: No Vision needs: No Review of Systems Const Denies fever(s) Eyes Reports no additional complaints ENT Reports no additional complaints Card Reports chest pain and Reports dyspnea on exertion Resp Reports chest congestion, Reports cough, Reports dyspnea on exertion, Reports stridor and Reports wheezing GI Reports no additional complaints Musc Reports back pain Skin/Breast Denies rash Neuro Reports no additional complaints Mahad/Lymph Reports lymphadenopathy Aller/Immun Reports no additional complaints and Reports wheezing Physical Exam Vital Signs: Last Vital Signs Pulse 92 04/29/24 13:00 BP 102/60 04/29/24 13:00 Pulse Ox 98 04/29/24 13:00 Oxygen Delivery Method Room Air 04/29/24 13:00 BMI result Body Mass Index 21.4 Const General: comfortable and anxious HEENT Head: Yes normocephalic Neck Neck: Yes supple Chest Chest palpation & inspection: normal inspection of the chest Resp Effort & Inspection: normal respiratory effort Auscultation: diminished lung sounds Cardio Heart sounds: S1 normal heart sound present and S2 normal heart sound present GI Palpation (GI): Soft to palpation Skin General skin exam: no rashes or lesions noted Extrem General: Yes no clubbing, cyanosis or edema Office Procedures Flu Questionnaire Does the patient have a severe egg allergy?: No Does the patient have severe life threatening allergies?: No Does the patient have a fever or illness today?: No Has the patient ever had Guillain-[place] Syndrome?: No Has the patient ever had any past reaction to a flu shot?: No Immunizations Fluarix Triv [id number] (PF) 45 mcg (15 mcg x 3)/0.5 mL IM syringe Performing Provider: Sina Del Real MD Performing Location: [facility] [place] Pulmonology Services Administered by: Armida Rose LPN on 04/29/24 13:33 Dose Route Admin Location Dispensed Lot Number Expiration Date NDC [employer] 0.5 mL IM Left Deltoid 0.5 mL [id number] 10/27/24 39160-451-70 [employer] V[employer] Given Date VIS Provided VIS Publication Date 04/29/24 Single Vaccine 20 Eligibility Eligibility Date Funding Source Not [facility] Eligible 04/29/24 Private Assessment & Plan Assessment & Plan (1) Non-small cell lung cancer: Comment: (poorly differentiated carcinoma RUL - dx 12/2023) Code(s): C34.90 - Malignant neoplasm of unspecified part of unspecified bronchus or lung Category: Surgical Qualifiers: Laterality: right Qualified Code(s): C34.91 - Malignant neoplasm of unspecified part of right bronchus or lung (2) Mass of upper lobe of right lung: Code(s): R91.8 - Other nonspecific abnormal finding of lung field Category: Surgical (3) Chronic cough: Code(s): R05.3 - Chronic cough Category: Medical (4) Nicotine dependence, cigarettes, uncomplicated: Code(s): F17.210 - Nicotine dependence, cigarettes, uncomplicated Category: Surgical (5) COPD (chronic obstructive pulmonary disease): Code(s): J44.9 - Chronic obstructive pulmonary disease, unspecified Category: Medical Qualifiers: COPD type: chronic bronchitis Chronic bronchitis type: simple Qualified Code(s): J41.0 - Simple chronic bronchitis Plan Albuterol/BUdesonide BID via nebulizer*rinse mouth* cough medicine Chemo/XRT ?KRAS targeted therapy F/U 4-6 months Orders: Orders Influenza [id number] Immunization 04/29/24 J41.0 - Simple chronic bronchitis Coding Level of Care Code Est Pt Level 4 (76657) Complex EM visit Add On G2211 Diagnoses Non-small cell cancer of right lung C34.91 Laterality: right Mass of upper lobe of right lung R91.8 Chronic cough R05.3 Nicotine dependence, cigarettes, uncomplicated F17.210 Simple chronic bronchitis J41.0 COPD type: chronic bronchitis Chronic bronchitis type: simple Time Spent (min) 17
== END 2024-04-29 13:27 | disposition home or self-care (01) ==
PROVIDERS: PCP Internal Medicine; Visit Provider Hospitalist
DX: C34.91 Malignant neoplasm of unspecified part of right bronchus or lung (principal); F17.210 Nicotine dependence, cigarettes, uncomplicated; J41.0 Simple chronic bronchitis
CPT/HCPCS: 99214; G2211

== ENCOUNTER → 2024-04-29 12:53 | Outpatient (BNVA) | payer OTHER, SELFPAY | PROVIDERS: PCP Internal Medicine; Visit Provider Hospitalist | DX: Z23 Encounter for immunization (principal); C34.91 Malignant neoplasm of unspecified part of right bronchus or lung; R91.8 Other nonspecific abnormal finding of lung field; R05.3 Chronic cough; J41.0 Simple chronic bronchitis; F17.210 Nicotine dependence, cigarettes, uncomplicated | CPT/HCPCS: 90471; 90656; 99212 ==

== ENCOUNTER 2024-05-05 11:03 | Outpatient (REF) | payer OTHER, SELFPAY ==
--- NOTE | ~2024-05-05 | CT_ITS ---
EXAMINATION: CT CHEST WITH CONTRAST CLINICAL INFORMATION: Non-small cell lung cancer. COMPARISON: CT chest dated December 29, 2023. TECHNIQUE: Multidetector volumetric CT imaging of the chest was obtained after the administration of 65 mL of Omnipaque 350 intravenous contrast without immediate adverse reactions. Axial MIP volume rendering provided. Sagittal and coronal reformatted images were obtained. This CT examination was performed using dose optimization techniques as appropriate, variously including the following: *Automated exposure control *Adjustment of mA and/or kV according to patient size (this includes techniques or standardized protocols for targeted exams where dose is matched to indication/reason for exam; i.e. extremities or head) *Use of iterative reconstruction technique Dose: 76 Gy-cm FINDINGS: The heterogeneously enhancing bulky abdominal mass measures 7.5 x 3.5 x 9 cm with a 4 cm low density, centered in the superior posterior right perihilar region resulting in a post obstructing pneumonia of the posterior segment right upper lobe. Nonspecific prominent 1 cm subcarinal lymph nodes. No pleural effusion. No pneumothorax. No intraluminal filling defects within the main pulmonary artery. Calcified plaques in the thoracic aorta wall and its main branches without aneurysm or dissection. No pericardial effusion. No other pulmonary nodules. No gross bronchiectasis or honeycombing. No gross lytic or blastic lesions. No gross extension into the central spinal canal. Left-sided Port-A-Cath tip ends in the right atrium. Sutures in the transverse colon and near the gastric antrum. Tiny pneumobilia. Soft tissue fullness in the left adrenal gland. CT/CT chest w IV con IMPRESSION: Overall diminished and less solid component mass, right upper hemithorax. Fleischner guidelines were followed. Electronically signed by: Alex Osborne MD 05/05/2024 01:32 PM EST
[2024-05-05] MEDS: iohexoL 350 MG/ML 100 ML INFUS..BTL 65 ML IV (12:51)
== END 2024-05-05 11:04 | disposition home or self-care (01) ==
LOC: HO.CT 11:03
PROVIDERS: PCP Internal Medicine; Visit Provider Internal Medicine Medical Oncology
DX: C34.90 Malignant neoplasm of unspecified part of unspecified bronchus or lung (principal)
CPT/HCPCS: 71260; Q9967

== ENCOUNTER → 2024-05-05 11:06 | Outpatient (BNV) | payer OTHER, SELFPAY | PROVIDERS: PCP Internal Medicine; Visit Provider Radiology Diagnostic Radiology | DX: J94.2 Hemothorax (principal) | CPT/HCPCS: 71260 ==

== ENCOUNTER 2024-06-26 14:15 | Outpatient (REF) | payer OTHER, SELFPAY ==
--- NOTE | ~2024-06-26 | XR_ITS ---
EXAMINATION: XR CHEST 2 VIEWS HISTORY: Persistent cough. Epr-dejcf-fcyw lung cancer COMPARISON: Comparison is made with the prior examination dated 12/29/2023. FINDINGS: PA and lateral views of the chest are submitted. A left-sided port is seen in place with its tip of the cavoatrial junction. Again seen is a right superior mediastinal mass which is smaller than on the prior study. There is linear scarring in the right upper lobe and tenting of the right hemidiaphragm. The left lung is clear. There is no pleural effusion, pneumothorax, or pulmonary vascular congestion. The heart is normal in size. There is mild degenerative disc disease of the spine. XR/XR chest 2V IMPRESSION: Right superior mediastinal mass which is smaller than on the prior study. No airspace opacity is seen. Electronically signed by: Abram Peñaloza MD 06/26/2024 03:35 PM [facility]
== END 2024-06-26 14:16 | disposition home or self-care (01) ==
LOC: HO.XRAY 14:15
PROVIDERS: PCP Internal Medicine; Visit Provider Internal Medicine Medical Oncology
DX: C34.90 Malignant neoplasm of unspecified part of unspecified bronchus or lung (principal)
CPT/HCPCS: 71046

== ENCOUNTER → 2024-06-26 14:20 | Outpatient (BNV) | payer OTHER, SELFPAY | PROVIDERS: PCP Internal Medicine; Visit Provider Radiology Diagnostic Radiology | DX: C34.91 Malignant neoplasm of unspecified part of right bronchus or lung (principal) | CPT/HCPCS: 71046 ==

== ENCOUNTER 2024-07-29 14:05 | Outpatient (REF) | payer OTHER, SELFPAY ==
--- NOTE | ~2024-07-29 | CT_ITS ---
CLINICAL HISTORY: Follow-up on xfs-conpq-cjuv lung cancer. CT chest with contrast Comparison: CT/AZ/SR - CT CHEST W IV CON - 05/05/24 12:14 EST Findings: No mediastinal mass or lymphadenopathy. Left chest wall central venous catheter with the tip terminating at the cavoatrial junction. No cardiomegaly. Trace calcified coronary artery disease. Mild calcification of the aortic valve. Normal size thoracic aorta with moderate calcified atherosclerotic disease. Paramediastinal low attenuating mass in the right upper lobe measuring 4.4 x 5.2 x 5.6 cm, previously measuring 4.5 x 5.5 x 6.8 cm. There is adjacent consolidated lung in obstruction of the right upper lobe bronchus, similar to the prior study. Mild paraseptal emphysema measuring up to 1.0 cm. Confluent centrilobular emphysema. Mild bronchial wall thickening. No pneumothorax. Trace right pleural fluid. No acute osseous or soft tissue abnormality. No acute pathology in the imaged portion of the upper abdomen. Small hiatal hernia. Status post cholecystectomy. Pneumobilia. Small bowel anastomotic sutures in the upper abdomen. Thickened left adrenal gland, unchanged. Subcentimeter low attenuating lesion in the left kidney which is too small to characterize. Impression: Right upper lobe paramediastinal mass currently measuring up to 5.6 cm and previously measuring up to 6.8 cm. This document has been electronically signed by: Janelle Donald MD on 07/30/2024 18:20:40
[2024-07-29] MEDS: iohexoL 350 MG/ML 100 ML INFUS..BTL IV (15:04)
== END 2024-07-29 14:06 | disposition home or self-care (01) ==
LOC: HO.CT 14:05
PROVIDERS: PCP Internal Medicine; Visit Provider Internal Medicine Medical Oncology
DX: C34.90 Malignant neoplasm of unspecified part of unspecified bronchus or lung (principal)
CPT/HCPCS: 71260; Q9967

== ENCOUNTER → 2024-07-29 14:08 | Outpatient (BNV) | payer OTHER, SELFPAY | PROVIDERS: PCP Internal Medicine; Visit Provider Radiology Diagnostic Radiology | DX: J98.59 Other diseases of mediastinum, not elsewhere classified (principal) | CPT/HCPCS: 71260 ==

== ENCOUNTER 2024-08-07 08:39 | Outpatient (AMB) | payer OTHER, SELFPAY ==
[2024-08-07 08:47] VITALS: BP 130/80; PULSE 77; RESP 16; TEMP 36.7; O2SAT 97; BMI 24.0
--- NOTE | 2024-08-07 08:47 | A.OFFPC_ITS ---
Vital Signs 08/07/24 08:47 Height 5 ft 4 in Weight 140 lb BMI 24.0 BP 130/80 Blood Pressure Location Rt brachial Position Sitting Respiration 16 Pulse 77 Pulse Source Pulse Oximeter Temp 98.0 F Temp Source Oral Pulse Oximetry (%) 97 Oxygen Delivery Method Room Air Intake Visit Reasons: pe Intake Note: Pt is here today for her PE: last mammogram 01/31/24, papsmear 08/29/23 Allergies heparin Allergy (Verified 08/10/24 02:26) Difficulty Breathing Medication List - Last Reconciled 08/10/24 by Kianna Archuleta MD albuterol sulfate 2.5 mg (3 mL) inhalation BID 30 days albuterol sulfate 90 mcg/actuation 2 inhalations inhalation Q6H PRN 30 days budesonide 0.5 mg (2 mL) inhalation BID 30 days dexamethasone 4 mg PO BID fluoxetine 10 mg PO DAILY gabapentin 300 mg PO BEDTIME 30 days lorazepam 0.5 mg PO BEDTIME PRN multivitamin 1 tab PO DAILY ondansetron 8 mg PO Q8H oxycodone 5 mg PO Q8H PRN Tobacco use date assessed: 08/07/24 Dental Screening Dental Screen Date: 08/07/24 Did you have a dental visit in the last 12 months?: No Did you have a dental problem in the last 6 months where you did not have access to dental care?: No Was dental information given to patient?: No HPI pe HPI Details 63-year-old lady , former smoker, with h istory of non-small cell lung cancer, COPD, hyperlipidemia, here today for her physical exam. She is currently being followed at oncology clinic in [place], where she is underwent chemoradiation therapy for her lung cancer currently feeling better, with no shortness of breath or chronic cough at present. However has been having a hard time coping with her cancer diagnosis and would like a referral for therapy and join a cancer support group. She is up-to-date with her screening for breast cancer with last mammogram 01/31/24 showing benign findings, and had a normal papsmear 08/29/[address] Patiño. Never had a colonoscopy done, despite father diagnosed with colon cancer. Would not want to have procedure done at present time as she is undergoing treatment for her cancer [facility] Medical History (Updated 08/10/24 @ 02:48 by Kianna Archuleta MD) Depression Hx of skin cancer, basal cell Former cigarette smoker COPD (chronic obstructive pulmonary disease) Chest pain Chronic cough Basal cell carcinoma Vitamin D deficiency Hyperpigmented skin lesion Family history of colon cancer in father Hyperlipidemia Surgical History (Updated 08/07/24 @ 09:38 by Kianna Archuleta MD) History of bronchoscopy Non-small cell lung cancer History of basal cell carcinoma (BCC) excision History of hand surgery History of cholecystectomy History of carpal tunnel surgery of right wrist Nicotine dependence, cigarettes, uncomplicated S/P gastric surgery History of appendectomy Family History Father Colon cancer Mother Hypertension Social History Housing: House Are you a primary career development associate to a significant other at home: No Do you presently have visiting nurse or other home services: No Alcohol intake: current Alcohol intake frequency: does not drink Patient Tobacco Use Status: Former Tobacco user Tobacco use type: Cigarette e-Cigarette/Vaping Use: Never Used Use of substances other than those prescribed or required for medical reasons: No Have you been hit, kicked, punched, or otherwise hurt by someone within the past year? 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 1. Little interest or pleasure in doing things: several days 2. Feeling down, depressed, or hopeless: nearly every day 3. Trouble falling or staying asleep, or sleeping too much: several days 4. Feeling tired or having little energy: nearly every day 5. Poor appetite or overeating: more than half the days 6. Feeling bad about yourself - or that you are a failure or have let yourself or your family down: more than half the days 7. Trouble concentrating on things, such as reading the newspaper or watching television: not at all 8. Moving or speaking so slowly that other people could have noticed. Or the opposite - being so fidgety or restless that you have been moving around a lot more than usual: not at all 9. Thoughts that you would be better off or of hurting yourself in some way: not at all Total score: 12 Depression Screening Interpretation: Positive (Started on fluoxetine 10 mg 1 tablet daily, referred to [facility] mental health coordinator for referral for therapy) Depression Screening Follow-up: New Medication prescribed, Community Mental Health Worker F/U and Follow-up Visit Requested (Follow-up in 4 weeks after starting fluoxetine) Depression Screening Done: Yes Source: Developed by Drs. Abram Boo, Lucinda Huber, Ariel Hall and colleagues, with an educational alin from [employer]. Thrive Questionnaire Date Thrive assessed: 08/07/24 I am a: Patient What is your living situation today?: I have a steady place to live Within the past 12 months, did the food you bought not last and you didn't have the money to get more?: Never true Within the past 12 months, did you worry whether your food would run out before you got money to buy more?: Never true Do you have trouble paying for medicines?: No Do you have trouble getting transportation to medical appointments?: No Do you have trouble paying your heating and electricity bill?: No Do you have trouble taking care of your child, family member or friend?: No Do you have trouble with day-to-day activities such as bathing, preparing meals, shopping, managing finances, etc.?: No Are you currently unemployed and looking for a job?: Yes Are you interested in more education?: No Please select the resources that you would like help with: None Currently or been in a relationship where the following occur: No concerns reported THRIVE Score: 0 AUDIT C Alcohol Use Questionnaire (AUDIT-C) 1. How often do you have a drink containing alcohol?: Never Total Score: 0 JOSLYN-7 AMB Questionnaire JOSLYN-7 Date JOSLYN - 7 assessed: 08/07/24 Feeling nervous, anxious, or on edge: 3 = Nearly every day Not being able to stop or control worryin = Nearly every day Worrying too much about different things: 3 = Nearly every day Trouble relaxin = Several days Being so restless that it is hard to sit still: 0 = Not at all Becoming easily annoyed or irritable: 3 = Nearly every day Feeling afraid as if something awful might happen: 3 = Nearly every day Total JOSLYN-7 score (0-4 normal; 5-9 mild; 10-14 moderate; 15-21 severe): 16 Source: Developed by Drs. Abram Boo, Lucinda Huber, Ariel Hall and colleagues, with an educational alin from [employer]. Review of Systems Const Denies body aches, Denies fever(s), Denies frequent falls and Denies headache(s) Eyes Reports no additional complaints ENT Reports no additional complaints and Denies headache(s) Card Denies chest pain, Denies irregular heart rhythm, Denies lightheadedness and Reports dyspnea on exertion (Mild) Resp Reports chest congestion, Reports cough, Reports dyspnea on exertion (Mild), Reports stridor and Reports wheezing GI Reports no additional complaints Reports no additional complaints Musc Reports back pain Skin/Breast Details: Sees [facility], with basal cell CA removed on left anterior chest wall Denies rash Neuro Reports no additional complaints, Denies frequent falls and Denies headache(s) Psych Reports as per HPI Endo Reports no additional complaints Mahad/Lymph Reports lymphadenopathy Aller/Immun Reports no additional complaints and Reports wheezing Physical exam (Primary Care) Vital Signs: Last Vital Signs Temp 98.0 F 08/07/24 08:47 Pulse 77 08/07/24 08:47 Resp 16 08/07/24 08:47 BP 130/80 08/07/24 08:47 Pulse Ox 97 08/07/24 08:47 Oxygen Delivery Method Room Air 08/07/24 08:47 BMI result Body Mass Index 24.0 Tobacco/Smoking Status: Tobacco use Status Tobacco use date assessed 08/07/24 08/07/24 08:54 Patient Tobacco Use Status Former Tobacco user 08/07/24 08:54 Tobacco use type Cigarette 08/07/24 08:54 e-Cigarette/Vaping Use Never Used 08/07/24 08:54 PHQ-9: PHQ-9 Score PHQ-9: Total score 12 08/10/24 02:49 Depression Screening Interpretation: Positive (Started on fluoxetine 10 mg 1 tablet daily, referred to [facility] mental health coordinator for referral for therapy) Depression Screening Follow-up: New Medication prescribed, Community Mental Health Worker F/U and Follow-up Visit Requested (Follow-up in 4 weeks after starting fluoxetine) Thrive Assessment: Date of Thrive Assessment Date Thrive assessed 08/07/24 08/07/24 08:54 Currently or been in a relationship where the following occur: No concerns reported Advance Care Planning discussion: Completed/Scanned Date of discussion: 08/07/24 Who was present: Patient Forms completed: Health Care Proxy Time spent: 16-45 minutes Actual minutes spent: 3 Const General: healthy appearing, comfortable and no acute distress Nutritional Appearance: average body habitus Orientation/consciousness: patient oriented x3 HENMT Head: Yes normocephalic Ears: external ears normal, TM's normal bilaterally and EAC's normal General nose exam: Normal external nose present Face and sinus: Yes face symmetric Mouth: Normal oral and palatal mucosa present, oropharynx normal and moist mucous membranes Eyes General: appearance normal, both eyes and all related structures Neck Neck: Yes normal visual inspection, Yes full ROM, Yes no lymphadenopathy and Yes supple Thyroid: Thyroid normal (Nonpalpable) Chest Breast/axilla palpation: normal palpation of the breasts Cardio Palpation: normal PMI Rate: regular rate Rhythm: regular rhythm Heart sounds: S1 normal heart sound present and S2 normal heart sound present GI Other: Normal bowel sounds, soft, nontender with no mass palpated General: Yes no CVA tenderness and Yes deferred Back/Spine/Pelvis Back: no CVA tenderness and No back tenderness Skin General skin exam: no rashes or lesions noted Neuro General: patient oriented x3, gait normal, Normal light touch and pain sensation and no focal motor deficits Extrem General: Yes normal to inspection, Yes full ROM, Yes no joint enlargement, Yes no pedal edema, Yes no calf tenderness and Yes normal gait Psych Appearance: grossly normal and well kempt Mental Status: mental status grossly normal Speech and movement: Normal speech and movement present Affect: Sad affect present Results Reviewed Results Reviewed: Name: Angelina Haile Age/Sex: 63/F : 1960 Unit#: [id number] Attend Dr: Le Marr MD Re08/07/24 Status: REG RCR Location: [facility] Disch: SPEC : [id number] CHARLY: 07/17/24 STATUS: COMP REQ : [id number] RECD: 07/17/[address]: Le Marr MD COMP: 07/17/24 ENTERED: 07/17/[address]: Kianna Archuleta MD ORDERED: CMP Test Result Flag Reference Sodium 140 135-145 mmol/L Potassium 3.6 3.3-5.1 mmol/L CL 107 96-108 mmol/L CO2 24 22-29 mmol/L Gap 13 12-20 BUN 16 9-16 mg/dL Creat 0.74 0.5-1.4 mg/dL Estimated CrCl 67.2 Provided height and weight: 162.56 cm, 61.1 kg. eGFR (calculated from the MDRD study equation) and eCrCl (calculated from the Cockcroft-Gault equation) are based on different parameters and may not yield comparable results. If eCrCl result is absurd, please check patient's height/weight. eGFR > 60 Chronic Kidney Disease: Estimated GFR < 60 mL/min/1.73m2 Severe Kidney Disease: Estimated GFR < 15 mL/min/1.73m2 Glucose, Random 87 60-115 mg/dL CA 9.1 8.4-10.2 mg/dL Total Bili 0.8 0.0-1.0 mg/dL AST (GOT) 48 H 5-31 U/L ALT (GPT) 69 H 0-31 U/L Protein, Total 7.3 6.5-8.0 g/dL Alb 4.0 3.5-5.0 g/dL Alk Phos 162 H 39-117 U/L Name: Angelina Haile Age/Sex: 63/F : 1960 Unit#: [id number] Attend Dr: Le Marr MD Re08/07/24 Status: REG RCR Location: [facility] Disch: SPEC : [id number] CHARLY: 07/17/24 STATUS: COMP REQ : [id number] RECD: 07/17/[address]: Le Marr MD COMP: 07/17/24 ENTERED: 07/17/246 [facility] DR: Kianna Archuleta MD ORDERED: CBC Auto Diff Test Result Flag Reference WBC 5.2 4.8-10.8 X10*3/uL RBC 3.17 L 4.20-5.50 X10*6/uL HGB 11.1 L 12.0-16.0 g/dl HCT 33.7 L 37.0-47.0 % MCV 106.3 H 80.0-98.0 fL MCH 35.0 H 27.0-33.0 pg MCHC 32.9 31.0-35.0 g/dl RDW 14.6 11.0-16.0 % PLT 276 # 160-400 X10*3/uL MPV 9.0 L 9.4-12.3 fL Neut Pct Auto 65.7 45-73 % ImGran Pct Auto 0.6 H 0.0-0.4 % Lymp Pct Auto 16.9 L 20-40 % [place] Pct Auto 15.1 H 2-11 % Eos Pct Auto 1.1 0-4 % Baso Pct Auto 0.6 0-2 % NRBC Pct Auto 0.0 0.0-0.2 /100WBC ANC Neut Abs # 3.4 2.0-8.3 x10*3/uL ImGran Abs Auto 0.03 0.00-0.03 X10*3/uL Lymph Abs Auto 0.9 L 1.2-4.9 X10*3/uL [place] Abs Auto 0.8 0.1-1.2 X10*3/uL Eos Abs Auto 0.1 0.0-0.4 X10*3/uL Baso Abs Auto 0.0 0.0-0.2 X10*3/uL NRBC Abs Auto 0.000 0.0-0.012 X10*3/uL Coding Level of Care Code Est Pt Prev Care 40-64y([id number]) Diagnoses Annual visit for general adult medical examination with abnormal findings Z00.01 Pure hypercholesterolemia E78.00 Hyperlipidemia type: pure hypercholesterolemia Anemia, unspecified type D64.9 Anemia type: unspecified type Hx of skin cancer, basal cell Z85.828 Simple chronic bronchitis J41.0 COPD type: chronic bronchitis Chronic bronchitis type: simple Advanced directives, counseling/discussion Z71.89 Depression F32.A Active/Remission status: currently active Depression Type: major depressive disorder Major depression recurrence: recurrent Additional Codes Vital Signs *Quality* - Advance Care Planning discussion: Completed/Scanned ([id number]) Vital Signs *Quality* - Time spent: 16-45 minutes ([id number]) Assessment & Plan Assessment & Plan (1) Annual visit for general adult medical examination with abnormal findings: Code(s): Z00.01 - Encounter for general adult medical examination with abnormal findings Plan: Will check appropriate labs. Recommended dental visit every 6 months and r egular eye exams, at least every 2 years. Take adequate calcium in diet and vitamin-D 3 at 2000 IU per cap once a day, in addition to weight-bearing exercises to help maintain good muscle tone and weight control. Instructed to do self-breast exam, and continue with getting yearly mammogram,, already up-to-date.. Immunization information provided: Yearly flu vaccine, shingles vaccine starting at age 50, at age 65 to start getting Prevnar 13 followed 1 year later by Pneumovax 23. Colonoscopy deferred at present time by patient he is still undergoing treatment for her lung cancer. Up-to-date with her cervical cancer screening. Has had Tdap in the past but other vaccines on hold as she is still undergoing treatment for her lung cancer (2) Hyperlipidemia: Code(s): E78.5 - Hyperlipidemia, unspecified Category: Medical Qualifiers: Hyperlipidemia type: pure hypercholesterolemia Qualified Code(s): E78.00 - Pure hypercholesterolemia, unspecified Plan: Fasting lipid panel ordered today (3) Anemia: Code(s): D64.9 - Anemia, unspecified Category: Medical Qualifiers: Anemia type: unspecified type Qualified Code(s): D64.9 - Anemia, unspecified Plan: Improving anemia as noted on recent CBC done in June 2024. Currently being followed by hematology oncology (4) Hx of skin cancer, basal cell: Code(s): Z85.828 - Personal history of other malignant neoplasm of skin Category: Medical Plan: Sees Dermatology regularly (5) COPD (chronic obstructive pulmonary disease): Code(s): J44.9 - Chronic obstructive pulmonary disease, unspecified Category: Medical Qualifiers: COPD type: chronic bronchitis Chronic bronchitis type: simple Qualified Code(s): J41.0 - Simple chronic bronchitis Plan: Has albuterol inhaler which she uses as needed for episodes of wheezing and bronchospasm. Has budesonide 0.5 mg inhalation twice a day (6) Advanced directives, counseling/discussion: Code(s): Z71.89 - Other specified counseling Plan: Initiated the conversation about Advanced Directives. Advanced Directives help patients prepare for current and future decisions about their medical treatment and place of care. Discussed with patient that it is a process where a patients current condition and prognosis are reviewed, their wishes for information regarding their illness are elicited, and likely medical dilemmas are presented and options discussed. Healthcare proxy form completed. The form can be amended as needed, reviewed yearly and make changes as needed (7) Depression: Code(s): F32.A - Depression, unspecified Category: Medical Qualifiers: Active/Remission status: currently active Depression Type: major depressive disorder Major depression recurrence: recurrent Plan: Started on fluoxetine 10 mg per capsule to take once a day in a.m., referred to [facility] mental health coordinator for in getting in to a cancer support group and for referral for psychotherapy. Will se her back in a month after starting medication for follow-up Orders: Orders Vitamin D 25-OH Total 08/07/24 D64.9 - Anemia, unspecified, E55.9 - Vitamin D deficiency, unspecified, E78.5 - Hyperlipidemia, unspecified, Z85.828 - Personal history of other malignant neoplasm of skin, Z87.891 - Personal history of nicotine dependence Vitamin B12 and Folate 08/07/24 D64.9 - Anemia, unspecified, E55.9 - Vitamin D deficiency, unspecified, E78.5 - Hyperlipidemia, unspecified, Z85.828 - Personal history of other malignant neoplasm of skin, Z87.891 - Personal history of nicotine dependence Lipid Panel 08/07/24 D64.9 - Anemia, unspecified, E55.9 - Vitamin D deficiency, unspecified, E78.5 - Hyperlipidemia, unspecified, Z85.828 - Personal history of other malignant neoplasm of skin, Z87.891 - Personal history of nicotine dependence Medications: New fluoxetine 10 mg PO DAILY 30 caps 1RF Refilled dexamethasone Take as directed 4 mg PO BID 60 tabs 0RF
== END 2024-08-07 10:16 | disposition home or self-care (01) ==
PROVIDERS: PCP Internal Medicine; Visit Provider Internal Medicine
DX: Z00.01 Encounter for general adult medical examination with abnormal findings (principal); E78.00 Pure hypercholesterolemia, unspecified; D64.9 Anemia, unspecified; Z85.828 Personal history of other malignant neoplasm of skin; J41.0 Simple chronic bronchitis; Z71.89 Other specified counseling; F32.A Depression, unspecified; Z00.00 Encounter for general adult medical examination without abnormal findings

== ENCOUNTER → 2024-08-07 08:39 | Outpatient (BNVA) | payer OTHER, SELFPAY | PROVIDERS: PCP Internal Medicine; Visit Provider Internal Medicine | DX: Z00.01 Encounter for general adult medical examination with abnormal findings (principal); C34.90 Malignant neoplasm of unspecified part of unspecified bronchus or lung; Z87.891 Personal history of nicotine dependence; E78.00 Pure hypercholesterolemia, unspecified; D64.9 Anemia, unspecified; J41.0 Simple chronic bronchitis; F32.A Depression, unspecified; Z71.89 Other specified counseling; Z85.828 Personal history of other malignant neoplasm of skin | CPT/HCPCS: 99396; 99497 ==

== ENCOUNTER 2024-09-04 11:20 | Outpatient (AMB) | payer OTHER, SELFPAY ==
[2024-09-04 12:01] VITALS: BP 126/80; PULSE 74; RESP 15; TEMP 36.7; O2SAT 98; BMI 23.2
--- NOTE | 2024-09-04 12:01 | MHC.PC.OV ---
Vital Signs 09/04/24 12:01 Height 5 ft 4 in Weight 135 lb BMI 23.2 BP 126/80 Blood Pressure Location Rt brachial Position Sitting Respiration 15 Pulse 74 Pulse Source Pulse Oximeter Temp 98.0 F Temp Source Oral Pulse Oximetry (%) 98 Oxygen Delivery Method Room Air Intake Visit Reasons: 4 weeks f/up Intake Note: Pt is here today 4wks f/u anxiety Allergies heparin Allergy (Verified 09/04/24 12:15) Difficulty Breathing Medication List - Last Reconciled 09/04/24 by Kianna Archuleta MD albuterol sulfate 2.5 mg (3 mL) inhalation BID 30 days albuterol sulfate 90 mcg/actuation 2 inhalations inhalation Q6H PRN 30 days budesonide 0.5 mg (2 mL) inhalation BID 30 days dexamethasone 4 mg PO BID fluoxetine 10 mg PO DAILY gabapentin 300 mg PO BEDTIME 30 days lorazepam 0.5 mg PO BEDTIME PRN multivitamin 1 tab PO DAILY ondansetron 8 mg PO Q8H oxycodone 5 mg PO Q8H PRN Tobacco use date assessed: 09/04/24 Dental Screening Dental Screen Date: 09/04/24 Did you have a dental visit in the last 12 months?: No Did you have a dental problem in the last 6 months where you did not have access to dental care?: No Was dental information given to patient?: No HPI 4 weeks f/up HPI Details 63-year-old lady with history of depression and hyperlipidemia, here today for follow-up. Mood has been on fluoxetine, requesting a refill. She had recent fasting labs done which showed high LDL cholesterol levels. She is currently not on any diet, and has not been taking any medications to help lower cholesterol levels. [facility], LATER [facility] Medical History Depression Hx of skin cancer, basal cell Former cigarette smoker COPD (chronic obstructive pulmonary disease) Chest pain Chronic cough Basal cell carcinoma Vitamin D deficiency Hyperpigmented skin lesion Family history of colon cancer in father Hyperlipidemia Surgical History History of bronchoscopy Non-small cell lung cancer History of basal cell carcinoma (BCC) excision History of hand surgery History of cholecystectomy History of carpal tunnel surgery of right wrist Nicotine dependence, cigarettes, uncomplicated S/P gastric surgery History of appendectomy Family History Father Colon cancer Mother Hypertension Social History Housing: House Are you a primary team primary care physician to a significant other at home: No Do you presently have visiting nurse or other home services: No Alcohol intake: current Alcohol intake frequency: does not drink Patient Tobacco Use Status: Former Tobacco user Tobacco use type: Cigarette e-Cigarette/Vaping Use: Never Used service: No Current occupational status: employed 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 1. Little interest or pleasure in doing things: not at all 2. Feeling down, depressed, or hopeless: not at all 3. Trouble falling or staying asleep, or sleeping too much: several days 4. Feeling tired or having little energy: several days 5. Poor appetite or overeating: not at all 6. Feeling bad about yourself - or that you are a failure or have let yourself or your family down: not at all 7. Trouble concentrating on things, such as reading the newspaper or watching television: not at all 8. Moving or speaking so slowly that other people could have noticed. Or the opposite - being so fidgety or restless that you have been moving around a lot more than usual: not at all 9. Thoughts that you would be better off or of hurting yourself in some way: not at all Total score: 2 Depression Screening Interpretation: Positive (on fluoxetine 10 mg 1 tablet daily, referred to [facility] mental health coordinator for referral for therapy) Depression Screening Follow-up: Existing condition, In treatment and Community Mental Health Worker F/U Depression Screening Done: Yes 18500 - PHQ-9 Billing: Yes Source: Developed by Drs. Abram Boo, Lucinda Huber, Ariel Hall and colleagues, with an educational alin from [employer]. Thrive Questionnaire Date Thrive assessed: 08/07/24 I am a: Patient What is your living situation today?: I have a steady place to live Within the past 12 months, did the food you bought not last and you didn't have the money to get more?: Never true Within the past 12 months, did you worry whether your food would run out before you got money to buy more?: Never true Do you have trouble paying for medicines?: No Do you have trouble getting transportation to medical appointments?: No Do you have trouble paying your heating and electricity bill?: No Do you have trouble taking care of your child, family member or friend?: No Do you have trouble with day-to-day activities such as bathing, preparing meals, shopping, managing finances, etc.?: No Are you currently unemployed and looking for a job?: Yes Are you interested in more education?: No Please select the resources that you would like help with: None Currently or been in a relationship where the following occur: No concerns reported THRIVE Score: 0 JOSLYN-7 AMB Questionnaire JOSLYN-7 Date JOSLYN - 7 assessed: 08/07/24 Source: Developed by Drs. Abram Boo, Lucinda Huber, Ariel Hall and colleagues, with an educational alin from [employer]. Review of Systems Const Denies body aches, Denies fever(s), Denies frequent falls and Denies headache(s) Eyes Reports no additional complaints ENT Reports no additional complaints and Denies headache(s) Card Denies chest pain, Denies irregular heart rhythm, Denies lightheadedness and Reports dyspnea on exertion (Mild) Resp Reports chest congestion, Reports cough, Reports dyspnea on exertion (Mild) and Reports stridor GI Reports no additional complaints Reports no additional complaints Musc Reports back pain Skin/Breast Details: Sees [facility], with basal cell CA removed on left anterior chest wall Denies rash Neuro Reports no additional complaints, Denies frequent falls and Denies headache(s) Psych Reports no additional complaints Endo Reports no additional complaints Aller/Immun Reports no additional complaints Physical exam (Primary Care) Vital Signs: Last Vital Signs Temp 98.0 F 09/04/24 12:01 Pulse 74 09/04/24 12:01 Resp 15 09/04/24 12:01 BP 126/80 09/04/24 12:01 Pulse Ox 98 09/04/24 12:01 Oxygen Delivery Method Room Air 09/04/24 12:01 BMI result Body Mass Index 23.2 Tobacco/Smoking Status: Tobacco use Status Tobacco use date assessed 09/04/24 09/04/24 12:06 Patient Tobacco Use Status Former Tobacco user 09/04/24 12:06 Tobacco use type Cigarette 09/04/24 12:06 e-Cigarette/Vaping Use Never Used 09/04/24 12:06 PHQ-9: PHQ-9 Score PHQ-9: Total score 2 09/14/24 23:02 Depression Screening Interpretation: Positive (on fluoxetine 10 mg 1 tablet daily, referred to [facility] mental health coordinator for referral for therapy) Depression Screening Follow-up: Existing condition, In treatment and Community Mental Health Worker F/U Thrive Assessment: Date of Thrive Assessment Date Thrive assessed 08/07/24 09/04/24 12:06 Currently or been in a relationship where the following occur: No concerns reported Actual minutes spent: 3 Const General: healthy appearing, comfortable and no acute distress Nutritional Appearance: average body habitus Orientation/consciousness: patient oriented x3 HENMT Head: Yes normocephalic Ears: external ears normal, TM's normal bilaterally and EAC's normal General nose exam: Normal external nose present Face and sinus: Yes face symmetric Mouth: Normal oral and palatal mucosa present, oropharynx normal and moist mucous membranes Eyes General: appearance normal, both eyes and all related structures Neck Neck: Yes normal visual inspection, Yes full ROM, Yes no lymphadenopathy and Yes supple Thyroid: Thyroid normal (Nonpalpable) Chest Breast/axilla palpation: normal palpation of the breasts Cardio Palpation: normal PMI Rate: regular rate Rhythm: regular rhythm Heart sounds: S1 normal heart sound present and S2 normal heart sound present GI Other: Normal bowel sounds, soft, nontender with no mass palpated General: Yes no CVA tenderness and Yes deferred Back/Spine/Pelvis Back: no CVA tenderness and No back tenderness Skin General skin exam: no rashes or lesions noted Neuro General: patient oriented x3, gait normal, Normal light touch and pain sensation and no focal motor deficits Extrem General: Yes normal to inspection, Yes full ROM, Yes no joint enlargement, Yes no pedal edema, Yes no calf tenderness and Yes normal gait Psych Appearance: grossly normal and well kempt Mental Status: mental status grossly normal Speech and movement: Normal speech and movement present Affect: Sad affect present Results Reviewed Results Reviewed: Name: Mic,Angelina Age/Sex: 63/F : 1960 Unit#: [id number] Attend Dr: Le Marr MD Re08/28/24 Status: REG RCR Location: HO.ONC Disch: SPEC : [id number] CHARLY: 08/07/24 STATUS: COMP REQ : [id number] RECD: 08/07/[address]: Le Marr MD COMP: 08/07/24 ENTERED: 08/07/[address]: Kianna Archuleta MD ORDERED: CMP, Lipid Panel/R, Vitamin D 25-OH/R, TSH Test Result Flag Reference Sodium 144 135-145 mmol/L Potassium 3.5 3.3-5.1 mmol/L CL 109 H 96-108 mmol/L CO2 25 22-29 mmol/L Gap 14 12-20 BUN 13 9-16 mg/dL Creat 0.69 0.5-1.4 mg/dL Estimated CrCl 72.0 Provided height and weight: 162.56 cm, 63 kg. eGFR (calculated from the MDRD study equation) and eCrCl (calculated from the Cockcroft-Gault equation) are based on different parameters and may not yield comparable results. If eCrCl result is absurd, please check patient's height/weight. eGFR > 60 Chronic Kidney Disease: Estimated GFR < 60 mL/min/1.73m2 Severe Kidney Disease: Estimated GFR < 15 mL/min/1.73m2 Glucose, Random 83 60-115 mg/dL CA 9.7 # 8.4-10.2 mg/dL Total Bili 0.6 0.0-1.0 mg/dL AST (GOT) 69 H 5-31 U/L ALT (GPT) 86 H 0-31 U/L Protein, Total 7.0 6.5-8.0 g/dL Alb 4.1 3.5-5.0 g/dL Triglyceride 127 <150 mg/dL Desirable Triglyceride: less than 150 mg/dL Borderline High Triglyceride 150-199 mg/dL High Triglyceride: 200-499 mg/dL Very High Triglyceride: greater than or equal to 5OO mg/dL Cholesterol 270 H <200 mg/dL Desirable Cholesterol: less than 200 mg/dL Borderline High Cholesterol: 200-239 mg/dL High Cholesterol: greater than 239 mg/dL LDL Calculated 195 H <100 mg/dL Desirable LDL: less than 100 mg/dL Near Optimal/Above Optimal LDL: 110-129 mg/dL Borderline High LDL: 130-159 mg/dL High LDL: 160-189 mg/dL Very High LDL: greater than or equal to 190 mg/dL HDL 50 >40 mg/dL Desirable HDL: greater than 40 mg/dL Note: This HDL assay may give artificially low results in patients with liver disease. Alk Phos 94 39-117 U/L Vitamin D 25-OH 29.6 L >30 ng/mL Health Based Reference Values* < 20 ng/mL Deficient 20-30 ng/mL Insufficient > 30 ng/mL Sufficient *Luisana BILLY. N Engl J Med. 2007;357:266-280 There is no well-established upper level of normal vitamin D levels. Some laboratories use 50 ng/mL as an upper limit of normal. However, toxicity is patient-dependent and may occur at any level. Careful correlation with the patient's presentation is necessary and, if there is concern for vitamin D toxicity, treatment should be considered irrespective of the serum level. Care must be taken in interpreting Vitamin D results from different laboratories and methodologies. Published data demonstrated that results from patients undergoing hemodialysis may show a negative bias when tested with various automated 25-OH vitamin D assays when compared to LC-MS/MS. When testing samples from patients whose predominant form of Vitamin D is Vitamin D2, such as patients receiving Vitamin D2 supplementation, results that are subtherapeutic should be confirmed with another method such as LC-MS/MS. TSH 3rd Gen. 0.95 0.32-4.0 uIU/mL TSH 3rd Generation ([facility]) Coding Level of Care Code Est Pt Level 4 (73013) Complex EM visit Add On G2211 Diagnoses Pure hypercholesterolemia E78.00 Hyperlipidemia type: pure hypercholesterolemia Recurrent major depressive disorder, in partial remission F33.41 Active/Remission status: in partial remission Depression Type: major depressive disorder Major depression recurrence: recurrent Additional Codes PHQ-9 - 58807 - PHQ-9 Billing: Yes ([id number]) Assessment & Plan Assessment & Plan (1) Hyperlipidemia: Code(s): E78.5 - Hyperlipidemia, unspecified Category: Medical Qualifiers: Hyperlipidemia type: pure hypercholesterolemia Qualified Code(s): E78.00 - Pure hypercholesterolemia, unspecified Plan: Recent fasting lab results reviewed with patient with elevated LDL cholesterol, started on rosuvastatin 5 mg to be taken once a day, will repeat another fasting lipid panel in 3 months together with total CK levels. Adherence to healthy eating habits and regular exercise strongly recommended (2) Depression: Code(s): F32.A - Depression, unspecified Category: Medical Qualifiers: Active/Remission status: in partial remission Depression Type: major depressive disorder Major depression recurrence: recurrent Qualified Code(s): F33.41 - Major depressive disorder, recurrent, in partial remission Plan: Doing well on fluoxetine, continued on 10 mg daily Orders: Orders Aspartate Amino Transferase 11/28/24 E78.00 - Pure hypercholesterolemia, unspecified Alanine Aminotransferase 11/28/24 E78.00 - Pure hypercholesterolemia, unspecified Lipid Panel 11/28/24 E78.00 - Pure hypercholesterolemia, unspecified Creatine Kinase Total 11/28/24 E78.00 - Pure hypercholesterolemia, unspecified Medications: New rosuvastatin 5 mg PO DAILY 90 tabs 1RF Refilled fluoxetine 10 mg PO DAILY 30 caps 5RF
== END 2024-09-04 12:29 | disposition home or self-care (01) ==
LOC: HO.HMCC 11:21
PROVIDERS: PCP Internal Medicine; Visit Provider Internal Medicine
DX: E78.00 Pure hypercholesterolemia, unspecified (principal); F33.41 Major depressive disorder, recurrent, in partial remission

== ENCOUNTER → 2024-09-04 11:20 | Outpatient (BNVA) | payer OTHER, SELFPAY | PROVIDERS: PCP Internal Medicine; Visit Provider Internal Medicine | DX: E78.00 Pure hypercholesterolemia, unspecified (principal); F33.41 Major depressive disorder, recurrent, in partial remission | CPT/HCPCS: 96127; 99212 ==

== ENCOUNTER 2024-10-22 15:27 | Outpatient (REF) | payer OTHER, SELFPAY ==
--- NOTE | ~2024-10-22 | CT_ITS ---
EXAMINATION: CT CHEST WITH CONTRAST CLINICAL INFORMATION: Non-small cell lung carcinoma restaging COMPARISON: July 29, 2024 DLP: 163 mGY*cm TECHNIQUE: Multidetector volumetric CT imaging of the chest was obtained after the administration of 65 mL of Omnipaque 350 intravenous contrast without immediate adverse reactions. Axial MIP volume rendering provided. Sagittal and coronal reformatted images were obtained. This CT examination was performed using dose optimization techniques as appropriate, variously including the following: *Automated exposure control *Adjustment of mA and/or kV according to patient size (this includes techniques or standardized protocols for targeted exams where dose is matched to indication/reason for exam; i.e. extremities or head) *Use of iterative reconstruction technique FINDINGS: LUNGS: There is new atelectasis involving the superior segment of the right upper lobe. Margins of a low attenuating mass are somewhat ill-defined. Mass abuts mediastinum along its medial margin. Coronal image 48/67 and sagittal image 63/92. The mass measures approximately 5.1 x 4.4 x 4.0 cm (AP by cc by transverse) . Previously it measured 4.4 x 5.2 x 5.6 cm. There are new reticular, greater than left, and airspace opacities with air bronchograms mostly in the central regions of the right upper lobe somewhat sparing the apical and anterior segments. There is also airspace opacity in the superior segment of the right lower lobe. MEDIASTINUM: There is no adenopathy. PLEURA: Small to moderate pleural effusion has increased in the right chest. AXILLA: No lymphadenopathy. UPPER ABDOMEN: Again seen is gas in the biliary tree postcholecystectomy likely related to sphincterotomy. Hypoenhancing (nodule measures 12 x 26 mm, similar to the prior. Small sliding hiatal hernia involves a gastric cardia. Small bowel anastomosis is seen anteriorly, right of midline. OSSEOUS STRUCTURES: Unremarkable. CT/CT chest w IV con IMPRESSION: Right upper lobe paramediastinal mass measuring 5.1 cm in largest single dimension and previously measured 5.6 cm. Margins of the mass are somewhat ill-defined and precise measurement is difficult. There is increased atelectasis involving the superior segment right upper lobe. There is also increasing airspace disease in the right upper lobe and superior segment right lower lobe that could represent pneumonia and/or atelectasis. Increasing small to medium sized layering right pleural effusion. Indeterminate left adrenal gland nodule. Electronically signed by: Fermín Flor MD 10/22/2024 05:09 PM EDT
[2024-10-22] MEDS: iohexoL 350 MG/ML 100 ML INFUS..BTL IV (15:51)
== END 2024-10-22 15:28 | disposition home or self-care (01) ==
LOC: HO.CT 15:27
PROVIDERS: PCP Internal Medicine; Visit Provider Internal Medicine Medical Oncology
DX: C34.90 Malignant neoplasm of unspecified part of unspecified bronchus or lung (principal)
CPT/HCPCS: 71260; Q9967

== ENCOUNTER → 2024-10-22 15:30 | Outpatient (BNV) | payer OTHER, SELFPAY | PROVIDERS: PCP Internal Medicine; Visit Provider Radiology Diagnostic Radiology | DX: C34.11 Malignant neoplasm of upper lobe, right bronchus or lung (principal) | CPT/HCPCS: 71260 ==

== ENCOUNTER 2024-11-17 07:59 | Outpatient (REF) | payer OTHER, SELFPAY ==
--- OUTSIDE RECORDS SUMMARY | 2024-11-17 08:03 | XMS_ITS | Clinical Summary ---
Author Organization [facility] Address [address] [address] Phone Care Team Providers Care Document Clerk Name Role Phone Kianna Archuleta MD Primary Care Provider Allergies No known active allergies Medications varenicline (CHANTIX) 1 mg tablet Take 1 tablet by mouth 2 (two) times a day. 4 Active albuterol 90 mcg/actuation inhaler INHALE 2 PUFFS INTO THE LUNGS EVERY 6 HOURS NEEDED SHORTNESS OF BREATH OR WHEEZING 4 Active guaiFENesin-cod eine (ROBITUSSIN AC) 100-10 mg/5 mL liquid TAKE 10 ML BY MOUTH EVERY 6 HOURS NEEDED FOR COUGH FOR 10 DAYS 4 Active gabapentin (NEURONTIN) 300 MG capsule Take 300 mg by mouth nightly at bedtime. 4 Active traMADoL (ULTRAM) 50 mg tablet Take 50 mg by mouth every 8 (eight) hours as needed. 4 Active oxyCODONE 5 MG immediate release tablet Take 5 mg by mouth every 8 (eight) hours as needed (pain). Active LORazepam (ATIVAN) 0.5 MG tablet Take 0.5 mg by mouth as needed for anxiety. Active Active Problems Problem Noted Date Diagnosed Date NSCLC of right lung 02/12/2024 Basal cell carcinoma (BCC) of anterior chest Tobacco abuse 10/16/2023 Family History Medical History Relation Comments Cancer Father colon Relation Status Comments Father Mother Social History Tobacco Use Types Packs/Day Years Used Date Smoking Tobacco: Former Cigarettes Q uit: 12/29/2023 Tobacco Cessation:Counseling Given: Not Answered Alcohol Use Standard Drinks/Week Comments Not Currently 0 (1 standard drink = 0.6 oz pur e alcohol) Education Answer Date Recorded Are you interested in more education? Not on jo-ann e 09/20/2023 Are you concerned about learning? Not on file 09/20/2023 No 09/20/2023 No 09/20/2023 Digital Access Answer Date Recorded No 09/20/2023 No 09/20/2023 Reliable internet access at home? Not on file 09/20/2023 Device with a working camera? Not on file Comments Unknown Sex and Gender Information Value Date Recorded Sex Assigned at Not on file Legal Sex Female 2:23 PM EDT Gender Identity Not on file Sexual Orientation Not on file Last Filed Vital Signs Vital Sign Reading Time Taken Comments Blood Pressure 128/70 04/22/2024 8:58 AM EST Pulse 79 04/22/2024 8:58 AM EST Temperature 36.6 C (97.9 F) 04/22/2024 8:58 AM EST Respiratory Rate 18 04/22/2024 8:58 AM EST Oxygen Saturation 98% 04/22/2024 8:58 AM EST Inhaled Oxygen Concentration - - Weight 56 kg (123 lb 8 oz) 04/22/2024 8:58 AM ES T Height 160.5 cm (5' 3.19 ) 03/14/2024 8:00 PM ES T Body Mass Index 21.75 03/14/2024 8:00 PM EST Plan of Treatment Health Maintenance Due Date Last Done Comments Adult Td,Tdap Booster 1960 LIPID PANEL 1960 DEPRESSION SCREENING 1972 SMOKING Hx and SMOKELESS TOB ACCO SCREENING 1973 HEPATITIS C SCREENING 1978 HIV ONE-TIME SCREENING (18-6 5 YEARS) 1978 PNEUMOCOCCAL VACCINES (50+ y ears) (1 of 2 - PCV) 11/03/1979 ZOSTER VACCINES (1 of 2) 11/03/1979 PAP SMEAR 1981 MAMMOGRAM 2000 COLOGUARD 2005 COLONOSCOPY 2005 COLORECTAL CANCER SCREENING 2005 FIT TEST 2005 FOBT 2005 SIGMOIDOSCOPY 2005 VIRTUAL COLONOSCOPY 2005 RSV VACCINE (1 - Risk 60-74 years 1-dose series) 2020 COVID-19 VACCINE (2023-2 5 season) 2023 HEPATITIS A VACCINES Aged Out No long er eligible based on patient's age to complete this topic HIB VACCINES Aged Out No longer eligi ble based on patient's age to complete this topic MENINGOCOCCAL VACCINES (ACWY) Aged Out No longer eligible based on patient's age to complete this topic MENINGOCOCCAL VACCINES (B) Aged Out N o longer eligible based on patient's age to complete this topic Medical Devices Not on file Insurance [employer] [place] [address] [address] [place] [address] [place] [address] [place] [address] ACO Care Teams Document Clerk Relationship Specialty Start Date End Date Kianna Archuleta MD PCP - General 09/20/23 Additional Source Comments The information contained in this document represents components of the legal health record. It is not the complete legal health record.[facility]
[2024-11-17 10:36] LABS: Alanine Aminotransferase 10 U/L (0-31); Aspartate Amino Transferase 31 U/L (5-31); Cholesterol 145 mg/dL (<200); HDL Cholesterol 34 mg/dL (>40); Triglycerides 97 mg/dL (<150)
== END 2024-11-17 08:00 | disposition home or self-care (01) ==
LOC: HO.HMGCLDS 07:59
PROVIDERS: PCP Internal Medicine; Visit Provider Internal Medicine
DX: E78.00 Pure hypercholesterolemia, unspecified (principal)
CPT/HCPCS: 36415; 80061; 82550; 84450; 84460

== ENCOUNTER 2024-11-20 14:53 | Outpatient (REF) | payer OTHER, SELFPAY ==
--- NOTE | ~2024-11-20 | XR_ITS ---
EXAMINATION: XR ABDOMEN KUB CLINICAL INDICATION: low back pain, impaired renal function COMPARISON: None available. TECHNIQUE: AP view of the abdomen. FINDINGS: Surgical line is seen in the right periumbilical epigastric region. There is moderate small and large bowel gas. XR/XR KUB IMPRESSION: Nonspecific bowel gas pattern. Moderate small and large bowel gas is identified. This could represent a paralytic ileus. Electronically signed by: Fermín Flor MD 11/20/2024 03:26 PM EDT
--- OUTSIDE RECORDS SUMMARY | 2024-11-20 15:01 | XMS_ITS | Clinical Summary ---
Author Organization [facility] Address [address] [address] Phone Care Team Providers Care Hog Sawyer Name Role Phone Kianna Archuleta MD Primary [...] Devices Not on file Insurance [place] [address] [place] [address] [address] [place] [address] [address] [place] [address] [place] [address] [place] [address] [place] [address] Care Teams Hog Sawyer Relationship Specialty Start Date End Date Kianna Archuleta MD [facility] [place] [address] [place] [address] PCP - General 09/20/23 Additional Source Comments The information contained in this document represents components of the legal health record. It is not the complete legal health record.[facility]
== END 2024-11-20 14:54 | disposition home or self-care (01) ==
LOC: HO.XRAY 14:53
PROVIDERS: PCP Internal Medicine; Visit Provider Nurse Practitioner Family
DX: M54.9 Dorsalgia, unspecified (principal); N28.9 Disorder of kidney and ureter, unspecified
CPT/HCPCS: 74018

== ENCOUNTER → 2024-11-20 15:01 | Outpatient (BNV) | payer OTHER, SELFPAY | PROVIDERS: PCP Internal Medicine; Visit Provider Radiology Diagnostic Radiology | DX: R14.0 Abdominal distension (gaseous) (principal) | CPT/HCPCS: 74018 ==

== ENCOUNTER 2024-11-24 13:30 | Outpatient (AMB) | payer OTHER, SELFPAY ==
[2024-11-24 13:48] VITALS: BP 128/60; PULSE 83; O2SAT 94; BMI 22.9
--- NOTE | 2024-11-24 13:48 | A.OFFVIS_ITS ---
Vital Signs 11/24/24 13:48 Height 5 ft 4 in Weight 133 lb 6.075 oz BMI 22.9 BP 128/60 Blood Pressure Location Lt radial Position Sitting Pulse 83 Pulse Source Pulse Oximeter Pulse Oximetry (%) 94 Oxygen Delivery Method Room Air Intake Visit Reasons: 14:45 appt Lung cancer/ CT FU Allergies heparin Allergy (Verified 11/24/24 13:52) Difficulty Breathing HPI Comments Details: The patient is a 64 year woman with a history of tobacco dependency presenting with a normal CT scan the chest. Apparently she had been having worsening cough. The cough is significant. He continued to worsen. Nonproductive in nature. Also associated with shortness of breath. Also had difficulty with chest tightness. She could not tolerate the symptoms and decided to go to the ER evaluate there she did have a CTA. The personally reviewed the demonstrating a large mediastinal mass which appears to be to some degree necrotic in nature. She was referred to thoracic surgery. Was then referred to Pulmonary. We did do a telehealth visit. The patient understands that she has a concerning condition that needs to have a biopsy. We did talk about different alternatives of diagnostic intervention. The highest yield lowest risk procedure would be to perform a bronchoscopy with endobronchial ultrasound to get sampling. Will try to schedule that as soon as possible at this time. In the meantime we did talk about treating her underlying symptoms to allow her to be able to feel better at this time. 01/24/2024 the patient is here for pulmonary follow-up visit. She is status post bronchoscopy with endobronchial ultrasound bronchoscopy. The bronchoscopy demonstrated complete opacification or obstruction of the right upper lobe with very abnormal anatomy. With forceps we are able to get endobronchial biopsies of the abnormal area in the right mainstem bronchus and also where we to do EBUS with transbronchial needle aspirations. Is a very poorly differentiated cancer difficult to differentiate. However, based on the testing available it appears to be non-small cell. Additional molecular markers have been sent and we are still waiting for the results. The patient is having significant back pain and cough. Cough seems to be better after the prednisone courses. In addition to that she is waiting for a PET scan scheduled for early next week. She did have PFTs today which will be helpful in further assessing pulmonary capacity. However, due to the location of the mass is unlikely that this is going to be a surgical case. Will wait for the PET scan to be able to get a better radiological staging of disease. But based on the endobronchial disease involving the central airways and also the fact that this mask is pushing the mediastinum, unfortunately, this is not a surgical case. Still waiting for the molecular markers to be able to provide her at least with the best option possible. She will be seen Hematology Oncology tomorrow. The patient also may need radiation oncology which she can do in a nearby hospital. Will keep her under FMLA out of work at this times that she is not able to work with this very advanced cancer. 02/21/2024 the patient is here for pulmonary follow-up visit. She is going to start chemotherapy. Her genetic mutation came back positive for KRAS. She also has PD1 positive. She will start her therapy and then consider more targeted therapy in the future. In the meantime she is having some issues with coughing addition to stridor. Seems to get worse when she is coughing or prime. She does have cough medication. Will go ahead and give her some Solu-Medrol today. She will receive her 1st dose of chemo today. She is also on steroids for chemo. The patient will be receiving a nebulizer treatment as well. Will provide her with a nebulizer for her to continue her nebulizer twice a day at home. 04/29/2024 the patient is here for a pulmonary follow-up visit. Overall the patient has been doing well. She is completing her chemo and also radiation. After she will likely start immune therapy. Her respiratory symptoms a lot better. She continues use her respiratory therapy. She has not required anymore prednisone or antibiotics since we last spoke. Once she completes her chemoradiation cycles she will go ahead and get a restaging through Oncology. Will follow-up in 6 months. If any other issues arise she will call for an earlier assessment. 11/24/2024 the patient is here for a pulmonary follow-up visit. The patient had a CT scan back in 10/22/2024. It did personally review. The masslike lesion in the right upper lobe shrunk slightly. However there is areas of atelectasis and airspace disease. She was started on Augmentin for few weeks. Overall she is not any better she still feels tired, also complaining of some back pain and just unsteady. She did get the Keytruda during the last infusion but her chemotherapy was held because of that. She is going to get IV hydration coming up soon. In the meantime will go ahead and start her on doxycycline since she still does not feel well and will repeat the CAT scan in a few weeks. If the areas to abnormal then will go ahead and plan to do bronchoscopy to address the airway issue. I did reassure her though that the mask had decreased in size which is a good sign that she is responding to therapy. She is very nervous. She also feels very tired and she is ?sick of being sick ?we did go for brief walking oximetry and her oxygen was good at 96% with activity the heart rate was a little elevated at 100. [facility] Medical History Depression Hx of skin cancer, basal cell Former cigarette smoker COPD (chronic obstructive pulmonary disease) Chest pain Chronic cough Basal cell carcinoma Vitamin D deficiency Hyperpigmented skin lesion Family history of colon cancer in father Hyperlipidemia Surgical History History of bronchoscopy Non-small cell lung cancer History of basal cell carcinoma (BCC) excision History of hand surgery History of cholecystectomy History of carpal tunnel surgery of right wrist Nicotine dependence, cigarettes, uncomplicated S/P gastric surgery History of appendectomy Family History Father Colon cancer Mother Hypertension Social History Housing: House Are you a primary intensive care unit nurse to a significant other at home: No Do you presently have visiting nurse or other home services: No Alcohol intake: current Alcohol intake frequency: does not drink Patient Tobacco Use Status: Former Tobacco user Tobacco use type: Cigarette e-Cigarette/Vaping Use: Never Used service: No Current occupational status: employed 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, 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 Cognitive needs: No Hearing needs: No Vision needs: No Review of Systems Const Reports daytime sleepiness, Reports excessive sweating, Denies fever(s) and Reports lethargy Eyes Reports no additional complaints ENT Reports no additional complaints Card Reports chest pain and Reports dyspnea on exertion Resp Reports cough, Reports dyspnea on exertion and Reports wheezing GI Reports no additional complaints Musc Reports back pain Skin/Breast Denies rash Neuro Reports no additional complaints Endo Reports excessive sweating Mahad/Lymph Reports lymphadenopathy Aller/Immun Reports no additional complaints and Reports wheezing Physical Exam Vital Signs: Last Vital Signs Pulse 83 11/24/24 13:48 BP 128/60 11/24/24 13:48 Pulse Ox 94 11/24/24 13:48 Oxygen Delivery Method Room Air 11/24/24 13:48 BMI result Body Mass Index 22.9 Const General: comfortable and anxious HEENT Head: Yes normocephalic Neck Neck: Yes supple Chest Chest palpation & inspection: normal inspection of the chest Resp Effort & Inspection: normal respiratory effort Auscultation: diminished lung sounds Cardio Heart sounds: S1 normal heart sound present and S2 normal heart sound present GI Palpation (GI): Soft to palpation Skin General skin exam: no rashes or lesions noted Extrem General: Yes no clubbing, cyanosis or edema Assessment & Plan Assessment & Plan (1) Non-small cell lung cancer: Comment: (poorly differentiated carcinoma RUL - dx 12/2023) Code(s): C34.90 - Malignant neoplasm of unspecified part of unspecified bronchus or lung Category: Surgical Qualifiers: Laterality: right Qualified Code(s): C34.91 - Malignant neoplasm of un specified part of right bronchus or lung (2) Pneumonia: Code(s): J18.9 - Pneumonia, unspecified organism Category: Medical Qualifiers: Pneumonia type: due to unspecified organism Laterality: right Lung location: unspecified part of lung Qualified Code(s): J18.9 - Pneumonia, unspecified organism (3) Mass of upper lobe of right lung: Code(s): R91.8 - Other nonspecific abnormal finding of lung field Category: Surgical (4) Chronic cough: Code(s): R05.3 - Chronic cough Category: Medical (5) Nicotine dependence, cigarettes, uncomplicated: Code(s): F17.210 - Nicotine dependence, cigarettes, uncomplicated Category: Surgical (6) COPD (chronic obstructive pulmonary disease): Code(s): J44.9 - Chronic obstructive pulmonary disease, unspecified Category: Medical Qualifiers: COPD type: chronic bronchitis Chronic bronchitis type: simple Qualified Code(s): J41.0 - Simple chronic bronchitis Plan Albuterol/BUdesonide BID via nebulizer*rinse mouth* start Wixela start Doxycycline repeat CT chest cough medicine Chemo/XRT ?KRAS targeted therapy F/U 4-6 weeks Orders: Orders CT chest wo IV con 2 Weeks C34.91 - Malignant neoplasm of unspecified part of right bronchus or lung, J18.9 - Pneumonia, unspecified organism Medications: New fluticasone propion-salmeterol 500-50 mcg/dose (Wixela Inhub) 1 inh inhalation Q12H 60 ea 11RF doxycycline monohydrate 100 mg PO BID 28 tabs 0RF 14 days Coding Level of Care Code Est Pt Level 5 (97512) Complex EM visit Add On G2211 Diagnoses Non-small cell cancer of right lung C34.91 Laterality: right Pneumonia of right lung due to infectious organism, unspecified part of lung J18.9 Pneumonia type: due to unspecified organism Laterality: right Lung location: unspecified part of lung Mass of upper lobe of right lung R91.8 Chronic cough R05.3 Nicotine dependence, cigarettes, uncomplicated F17.210 Simple chronic bronchitis J41.0 COPD type: chronic bronchitis Chronic bronchitis type: simple Time Spent (min) 45
--- OUTSIDE RECORDS SUMMARY | 2024-11-24 14:13 | XMS_ITS | Clinical Summary ---
Author Organization [facility] Address [address] [address] Phone Care Team Providers Care [employer] Fitness Instructor Name Role Phone Kianna Archuleta MD Primary [...] Devices Not on file Insurance [place] [address] [place] [address] [place] [address] [place] [address] [place] [address] [place] [address] [place] [place] [address] [place] [address] Care Teams [employer] Fitness Instructor Relationship Specialty Start Date End Date Kianna Archuleta MD [facility] [place] [id number] PCP - General 09/20/23 Additional Source Comments The information contained in this document represents components of the legal health record. It is not the complete legal health record.[facility]
== END 2024-11-24 14:21 | disposition home or self-care (01) ==
LOC: HO.HPS 13:31
PROVIDERS: PCP Internal Medicine; Visit Provider Hospitalist
DX: C34.91 Malignant neoplasm of unspecified part of right bronchus or lung (principal); J18.9 Pneumonia, unspecified organism; R91.8 Other nonspecific abnormal finding of lung field; R05.3 Chronic cough; F17.210 Nicotine dependence, cigarettes, uncomplicated; J41.0 Simple chronic bronchitis
CPT/HCPCS: 99215

== ENCOUNTER → 2024-11-24 13:30 | Outpatient (BNVA) | payer OTHER, SELFPAY | PROVIDERS: PCP Internal Medicine; Visit Provider Hospitalist | DX: C34.91 Malignant neoplasm of unspecified part of right bronchus or lung (principal); J18.9 Pneumonia, unspecified organism; R91.8 Other nonspecific abnormal finding of lung field; J41.0 Simple chronic bronchitis; F17.210 Nicotine dependence, cigarettes, uncomplicated | CPT/HCPCS: 99212 ==

== ENCOUNTER 2024-11-27 11:38 | Outpatient (REF) | payer OTHER, SELFPAY ==
--- NOTE | ~2024-11-27 | XR_ITS ---
EXAMINATION: XR LUMBOSACRAL SPINE CLINICAL INFORMATION: worsening lower back pain COMPARISON: None available. TECHNIQUE: AP and lateral views FINDINGS: Endplate sclerosis marginal osteophyte formation and decreased intervertebral disc height and vacuum phenomenon at L5-S1. Bilateral facet joint hypertrophy at L5-S1. No acute cortical disruption or gross malalignment. Small marginal osteophyte formation at multiple levels of the lumbar spine. Vascular calcifications, aorta. Vascular clips overlapping the right side of T12 with the calcifications versus sutures. XR/XR lumbar spine 2-3V IMPRESSION: Spondylosis pronounced at L5-S1. Atherosclerosis disease. Electronically signed by: Alex Osborne MD 11/27/2024 12:45 PM EDT
--- OUTSIDE RECORDS SUMMARY | 2024-11-27 12:21 | XMS_ITS | Clinical Summary ---
Author Organization [facility] Address [address] [address] Phone Care Team Providers Care Clinical Research Administrator Name Role Phone Kianna Archuleta MD Primary [...] Devices Not on file Insurance [place] [address] [place] [address] [place] [address] [place] [address] [place] [place] [address] [place] [place] [address] ACO Care Teams Clinical Research Administrator Relationship Specialty Start Date End Date Kianna Archuleta MD [facility] [place] [id number] PCP - General 09/20/23 Additional Source Comments The information contained in this document represents components of the legal health record. It is not the complete legal health record.[facility]
== END 2024-11-27 11:39 | disposition home or self-care (01) ==
LOC: HO.XRAY 11:38
PROVIDERS: PCP Internal Medicine; Visit Provider Nurse Practitioner Family
DX: M54.50 Low back pain, unspecified (principal)
CPT/HCPCS: 72100

== ENCOUNTER → 2024-11-27 11:59 | Outpatient (BNV) | payer OTHER, SELFPAY | PROVIDERS: PCP Internal Medicine; Visit Provider Radiology Diagnostic Radiology | DX: M47.816 Spondylosis without myelopathy or radiculopathy, lumbar region (principal) | CPT/HCPCS: 72100 ==

== ENCOUNTER 2024-12-02 09:41 | Outpatient (AMB) | payer OTHER, SELFPAY ==
--- OUTSIDE RECORDS SUMMARY | 2024-12-02 10:05 | XMS_ITS | Clinical Summary ---
Author Organization [facility] Address [address] [address] Phone Care Team Providers Care Financial Engineer Name Role Phone Kianna Archuleta MD Primary [...] Devices Not on file Insurance [place] [address] [place] [address] [place] [address] [place] [address] [place] [address] [place] [address] [place] [address] [place] [address] ACO Care Teams Financial Engineer Relationship Specialty Start Date End Date Kianna Archuleta MD [facility] [place] [id number] PCP - General 09/20/23 Additional Source Comments The information contained in this document represents components of the legal health record. It is not the complete legal health record.[facility]
[2024-12-02 10:09] VITALS: BP 112/80; PULSE 82; RESP 15; TEMP 36.7; O2SAT 95; BMI 25.9
--- NOTE | 2024-12-02 10:09 | A.OFFPC_ITS ---
Vital Signs 12/02/24 10:09 Height 5 ft 4 in Weight 151 lb BMI 25.9 BP 112/80 Blood Pressure Location Rt brachial Position Sitting Respiration 15 Pulse 82 Pulse Source Pulse Oximeter Temp 98.1 F Temp Source Oral Pulse Oximetry (%) 95 Oxygen Delivery Method Room Air Intake Visit Reasons: 3 months Intake Note: Pt is here today for her 3mo. f/u Allergies heparin Allergy (Verified 12/02/24 10:34) Difficulty Breathing Medication List - Last Reconciled 12/02/24 by Kianna Archuleta MD albuterol sulfate 2.5 mg (3 mL) inhalation BID 30 days albuterol sulfate 90 mcg/actuation 2 inhalations inhalation Q6H PRN 30 days budesonide 0.5 mg (2 mL) inhalation BID 30 days dexamethasone 4 mg PO BID doxycycline monohydrate 100 mg PO BID 14 days fluticasone propion-salmeterol 500-50 mcg/dose (Wixela Inhub) 1 inh inhalation Q12H folic acid 0.8 mg PO DAILY gabapentin 300 mg PO BEDTIME 30 days lidocaine 5% 1 patch topical DAILY PRN lorazepam 0.5 mg PO BEDTIME PRN multivitamin 1 tab PO DAILY ondansetron 8 mg PO Q8H oxycodone 5 mg PO Q8H PRN polyethylene glycol 3350 (Miralax) 17 grams PO DAILY Tobacco use date assessed: 12/02/24 Dental Screening Dental Screen Date: 09/04/24 Did you have a dental visit in the last 12 months?: No Did you have a dental problem in the last 6 months where you did not have access to dental care?: No Was dental information given to patient?: Patient declined HPI 3 months HPI Details - The patient is a 64-year-old female wi th history of lung cancer currently on chemotherapy, COPD, nicotine dependence, presenting today complaining of muscle pain and leg cramps after starting rosuvastatin . She was prescribed rosuvastatin 5 mg in August, which resulted in severe muscle pain and leg cramps, leading to discontinuation of the medication two weeks ago. - Has hx of Depression and anxiety, was on fluoxetine 10 mg, which she stopped recently after experiencing significant headaches after taking it. Does not want to start any medication at this time, except for an occasional lorazepam which she takes as needed for acute anxiety attacks. [facility] Medical History Depression Hx of skin cancer, basal cell Former cigarette smoker COPD (chronic obstructive pulmonary disease) Chest pain Chronic cough Basal cell carcinoma Vitamin D deficiency Hyperpigmented skin lesion Family history of colon cancer in father Hyperlipidemia Surgical History History of bronchoscopy Non-small cell lung cancer History of basal cell carcinoma (BCC) excision History of hand surgery History of cholecystectomy History of carpal tunnel surgery of right wrist Nicotine dependence, cigarettes, uncomplicated S/P gastric surgery History of appendectomy Family History Father Colon cancer Mother Hypertension Social History Housing: House Are you a primary healthcare prof to a significant other at home: No Do you presently have visiting nurse or other home services: No Alcohol intake: current Alcohol intake frequency: does not drink Patient Tobacco Use Status: Former Tobacco user Tobacco use type: Cigarette e-Cigarette/Vaping Use: Never Used service: No Current occupational status: employed 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, 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 Cognitive needs: No Hearing needs: No Vision needs: No Questionnaire Thrive Questionnaire Date Thrive assessed: 08/07/24 I am a: Patient What is your living situation today?: I have a steady place to live Within the past 12 months, did the food you bought not last and you didn't have the money to get more?: Never true Within the past 12 months, did you worry whether your food would run out before you got money to buy more?: Never true Do you have trouble paying for medicines?: No Do you have trouble getting transportation to medical appointments?: No Do you have trouble paying your heating and electricity bill?: No Do you have trouble taking care of your child, family member or friend?: No Do you have trouble with day-to-day activities such as bathing, preparing meals, shopping, managing finances, etc.?: No Are you currently unemployed and looking for a job?: Yes Are you interested in more education?: No Please select the resources that you would like help with: None Currently or been in a relationship where the following occur: No concerns reported THRIVE Score: 0 JOSLYN-7 AMB Questionnaire JOSLYN-7 Date JOSLYN - 7 assessed: 08/07/24 Source: Developed by Drs. Abram Boo, Lucinda Huber, Ariel Hall and colleagues, with an educational alin from [employer]. Review of Systems Const Reports daytime sleepiness, Reports excessive sweating and Denies fever(s) Eyes Reports no additional complaints ENT Reports no additional complaints Card Reports chest pain and Reports dyspnea on exertion Resp Reports cough, Reports dyspnea on exertion and Reports wheezing GI Reports no additional complaints Reports no additional complaints Musc Reports back pain Skin/Breast Denies rash Neuro Reports no additional complaints Psych Reports no additional complaints Endo Reports excessive sweating Mahad/Lymph Reports lymphadenopathy Aller/Immun Reports no additional complaints and Reports wheezing Physical exam (Primary Care) Vital Signs: Last Vital Signs Temp 98.1 F 12/02/24 10:09 Pulse 82 12/02/24 10:09 Resp 15 12/02/24 10:09 BP 112/80 12/02/24 10:09 Pulse Ox 95 12/02/24 10:09 Oxygen Delivery Method Room Air 12/02/24 10:09 BMI result Body Mass Index 25.9 Tobacco/Smoking Status: Tobacco use Status Tobacco use date assessed 12/02/24 12/02/24 10:30 Patient Tobacco Use Status Former Tobacco user 12/02/24 10:10 Tobacco use type Cigarette 12/02/24 10:10 e-Cigarette/Vaping Use Never Used 12/02/24 10:10 Thrive Assessment: Date of Thrive Assessment Date Thrive assessed 08/07/24 12/02/24 10:10 Currently or been in a relationship where the following occur: No concerns reported Actual minutes spent: 3 Const General: comfortable and no acute distress Nutritional Appearance: average body habitus Orientation/consciousness: patient oriented x3 HENMT Head: Yes normocephalic Ears: external ears normal General nose exam: Normal external nose present Face and sinus: Yes face symmetric Mouth: Normal oral and palatal mucosa present, oropharynx normal and moist mucous membranes Eyes General: appearance normal, both eyes and all related structures Neck Neck: Yes normal visual inspection, Yes full ROM, Yes no lymphadenopathy and Yes supple Thyroid: Thyroid normal (Nonpalpable) Cardio Rate: regular rate Rhythm: regular rhythm Heart sounds: S1 normal heart sound present and S2 normal heart sound present GI Other: Normal bowel sounds, soft, nontender with no mass palpated General: Yes no CVA tenderness and Yes deferred Back/Spine/Pelvis Back: no CVA tenderness and No back tenderness Skin General skin exam: no rashes or lesions noted Neuro General: patient oriented x3, gait normal, Normal light touch and pain sensation and no focal motor deficits Extrem General: Yes normal to inspection, Yes full ROM, Yes no joint enlargement, Yes no pedal edema, Yes no calf tenderness and Yes normal gait Psych Appearance: grossly normal and well kempt Mental Status: mental status grossly normal Speech and movement: Normal speech and movement present Affect: normal affect Results Reviewed Results Reviewed: Name: Angelina Haile Age/Sex: 64/F : 1960 Unit#: [id number] Attend Dr: Le Marr MD Re11/27/24 Status: REG RCR Location: .[facility] Disch: SPEC : [id number] CHARLY: 11/27/24 STATUS: COMP REQ : [id number] RECD: 11/27/24-[address]: Divina Romano NP COMP: 11/27/24 ENTERED: 11/27/[address]: Kianna Archuleta MD, Zubeena MD ORDERED: CBC Auto Diff Test Result Flag Reference WBC 9.0 4.8-10.8 X10*3/uL RBC 2.97 L 4.20-5.50 X10*6/uL HGB 9.4 L 12.0-16.0 g/dl HCT 29.7 L 37.0-47.0 % MCV 100.0 H 80.0-98.0 fL MCH 31.6 27.0-33.0 pg MCHC 31.6 31.0-35.0 g/dl RDW 13.6 11.0-16.0 % PLT 352 160-400 X10*3/uL MPV 10.1 9.4-12.3 fL Neut Pct Auto 79.3 H 45-73 % ImGran Pct Auto 0.9 H 0.0-0.4 % Lymp Pct Auto 5.8 L 20-40 % [facility] Pct Auto 12.2 H 2-11 % Eos Pct Auto 1.1 0-4 % Baso Pct Auto 0.7 0-2 % NRBC Pct Auto 0.0 0.0-0.2 /100WBC ANC Neut Abs # 7.1 2.0-8.3 x10*3/uL ImGran Abs Auto 0.08 H 0.00-0.03 X10*3/uL Lymph Abs Auto 0.5 L 1.2-4.9 X10*3/uL [facility] Abs Auto 1.1 0.1-1.2 X10*3/uL Eos Abs Auto 0.1 0.0-0.4 X10*3/uL Baso Abs Auto 0.1 0.0-0.2 X10*3/uL NRBC Abs Auto 0.000 0.0-0.012 X10*3/uL Name: Angelina Haile Age/Sex: 64/F : 1960 Unit#: [id number] Attend Dr: Le Marr MD Re11/27/24 Status: REG RCR [facility] SPEC : [id number] CHARLY: 11/27/24-100 STATUS: COMP REQ : [id number] RECD: 11/27/24-[address]: Divina Romano NP COMP: 11/27/24-1123 ENTERED: 11/27/24-[address]: Kianna Archuleta MD, Zubeena MD ORDERED: CMP, MG, TSH Rflx Test Result Flag Reference Sodium 142 135-145 mmol/L Potassium 4.1 3.3-5.1 mmol/L Slight Hemolysis.Interpret result with caution. CL 108 96-108 mmol/L CO2 21 L 22-29 mmol/L Gap 17 12-20 BUN 8 L 9-16 mg/dL Creat 0.90 0.5-1.4 mg/dL Estimated CrCl 54.5 Provided height and weight: 162.56 cm, 60.3 kg. eGFR (calculated from the MDRD study equation) and eCrCl (calculated from the Cockcroft-Gault equation) are based on different parameters and may not yield comparable results. If eCrCl result is absurd, please check patient's height/weight. eGFR > 60 Chronic Kidney Disease: Estimated GFR < 60 mL/min/1.73m2 Severe Kidney Disease: Estimated GFR < 15 mL/mi n/1.73m2 Glucose, Random 92 60-115 mg/dL CA 8.8 # 8.4-10.2 mg/dL Magnesium 1.8 1.6-2.6 mg/dL Total Bili 0.3 0.0-1.0 mg/dL AST (GOT) 35 H 5-31 U/L Slight Hemolysis.Interpret result with caution. ALT (GPT) 9 0-31 U/L Protein, Total 6.4 L 6.5-8.0 g/dL Alb 3.6 3.5-5.0 g/dL Alk Phos 90 39-117 U/L TSH 0.78 0.32-4.0 uIU/mL Coding Level of Care Code Est Pt Level 4 (37191) Diagnoses Recurrent major depressive disorder, in partial remission F33.41 Depression Type: major depressive disorder Major depression recurrence: recurrent Active/Remission status: in partial remission Pure hypercholesterolemia E78.00 Hyperlipidemia type: pure hypercholesterolemia Anemia, unspecified type D64.9 Anemia type: unspecified type Non-small cell cancer of right lung C34.91 Laterality: right Simple chronic bronchitis J41.0 COPD type: chronic bronchitis Chronic bronchitis type: simple Assessment & Plan Assessment & Plan (1) Depression: Code(s): F32.A - Depression, unspecified Category: Medical Qualifiers: Depression Type: major depressive disorder Major depression recurrence: recurrent Active/Remission status: in partial remission Qualified Code(s): F33.41 - Major depressive disorder, recurrent, in partial remission (2) Hyperlipidemia: Code(s): E78.5 - Hyperlipidemia, unspecified Category: Medical Qualifiers: Hyperlipidemia type: pure hypercholesterolemia Qualified Code(s): E78.00 - Pure hypercholesterolemia, unspecified (3) Anemia: Code(s): D64.9 - Anemia, unspecified Category: Medical Qualifiers: Anemia type: unspecified type Qualified Code(s): D64.9 - Anemia, unspecified (4) Non-small cell lung cancer: Comment: (poorly differentiated carcinoma RUL - dx 12/2023) Code(s): C34.90 - Malignant neoplasm of unspecified part of unspecified bronchus or lung Category: Surgical Qualifiers: Laterality: right Qualified Code(s): C34.91 - Malignant neoplasm of unspecified part of right bronchus or lung (5) COPD (chronic obstructive pulmonary disease): Code(s): J44.9 - Chronic obstructive pulmonary disease, unspecified Category: Medical Qualifiers: COPD type: chronic bronchitis Chronic bronchitis type: simple Qualified Code(s): J41.0 - Simple chronic bronchitis Plan The patient is advised to eat a hold rosuvastatin due to muscle pain and leg cramps, with a plan to monitor cholesterol levels after a month to assess the need for further lipid management. For depression, the patient has stopped fluoxetine due to headaches, and alternative management strategies are being considered, including the potential use of gabapentin. Constipation management includes the use of MiraLAX and dietary modifications, with an emphasis on hydration and fiber intake. Back pain management involves addressing lumbar spine issues with potential interventions for arthritis and disc slippage, including the use of pain patches and physical therapy. Vaccination discussions included delaying the shingles vaccine due to chemotherapy, while ensuring flu and COVID vaccinations are up to date. Patient was informed and verbally consented to the use of an ambient scribe for clinic note documentation during this visit.
== END 2024-12-02 13:14 | disposition home or self-care (01) ==
LOC: HO.HMCC 09:41
PROVIDERS: PCP Internal Medicine; Visit Provider Internal Medicine
DX: J41.0 Simple chronic bronchitis (principal); C34.91 Malignant neoplasm of unspecified part of right bronchus or lung; F33.41 Major depressive disorder, recurrent, in partial remission; E78.00 Pure hypercholesterolemia, unspecified; D64.9 Anemia, unspecified

== ENCOUNTER → 2024-12-02 09:41 | Outpatient (BNVA) | payer OTHER, SELFPAY | PROVIDERS: PCP Internal Medicine; Visit Provider Internal Medicine | DX: J41.0 Simple chronic bronchitis (principal); F41.9 Anxiety disorder, unspecified; F33.41 Major depressive disorder, recurrent, in partial remission; E78.00 Pure hypercholesterolemia, unspecified; D64.9 Anemia, unspecified; C34.91 Malignant neoplasm of unspecified part of right bronchus or lung; F17.210 Nicotine dependence, cigarettes, uncomplicated; Z85.118 Personal history of other malignant neoplasm of bronchus and lung; Z79.899 Other long term (current) drug therapy | CPT/HCPCS: 99212 ==

== ENCOUNTER 2025-02-04 15:12 | Outpatient (REF) | payer OTHER, SELFPAY ==
--- NOTE | ~2025-02-04 | CT_ITS ---
EXAMINATION: CT CHEST WITH CONTRAST CLINICAL INFORMATION: Non-small cell lung carcinoma, follow-up examination. COMPARISON: 10/22/2024, 07/29/2024. TECHNIQUE: Multidetector volumetric CT imaging of the chest was obtained after the administration of 65 mL of Omnipaque 350 intravenous contrast without immediate adverse reactions. Axial MIP volume rendering provided. Sagittal and coronal reformatted images were obtained. This CT examination was performed using dose optimization techniques as appropriate, variously including the following: *Automated exposure control *Adjustment of mA and/or kV according to patient size (this includes techniques or standardized protocols for targeted exams where dose is matched to indication/reason for exam; i.e. extremities or head) *Use of iterative reconstruction technique FINDINGS: LUNGS: Redemonstration of a posterior paramediastinal inferior right upper lobe mass lesion with internal peripheral calcifications currently measuring approximately 3.6 x 4.6 x 4.8 cm, previously measuring approximately 3.6 x 4.9 x 4.8 cm when measured similarly. It is minimally smaller than previously. It is surrounded by atelectatic lung parenchyma which is likely outreach representative of cicatrization type atelectasis. Immediately inferior to the mass, there is reticular type consolidative changes of the superior segment right lower lobe, similar to the prior exam, most likely representing treatment-related changes. There is a small layering right pleural effusion. There is right lung volume loss, stable, with cicatrization type atelectasis of segmental portions of the right upper lobe. There is significant volume loss in the right middle lobe as well, stable. There is a small layering right pleural effusion, essentially unchanged from the prior examination. There is centrilobular emphysema, unchanged. No new suspicious lung nodules. Small airways appear normal. No left effusion. MEDIASTINUM: There is mild mediastinal shift to the right due to right lung volume loss. The right paramediastinal mass partially encases the right mainstem bronchus, without significant bronchial narrowing. It does extend into the right superior hilum with mediastinal invasion. This appears similar and unchanged. There is no abnormal lymphadenopathy. Normal thyroid gland. Aorta is nonaneurysmal. There is moderate calcification. Main pulmonary artery is normal in size. Heart size is normal. There is no pericardial effusion. AXILLA/CHEST WALL: No mass or lymphadenopathy. Left chest port in place with tip extending into the cavoatrial junction. UPPER ABDOMEN: Pneumobilia again noted, unchanged. Diffuse thickening of the left adrenal gland, unchanged. Stable low-density adrenal nodule. Small bowel anastomotic suture noted to the left of midline. Gallbladder is not well seen, may be completely decompressed. Small type I hiatus hernia present. OSSEOUS STRUCTURES: Unremarkable. CT/CT chest w IV con IMPRESSION: 1. Right upper lobe paramediastinal mass as detailed, minimally smaller when compared with the most recent examination of 10/22/2024. It is again surrounded by cicatrization type atelectasis of the right upper lobe. 2. Stable reticular changes in the superior segment right lower lobe, just below the mass, likely treatment-related changes. 3. Stable volume loss in the right lung with partial cicatrization atelectasis of the right upper lobe. There is mild right mediastinal shift. 4. No new disease in the lungs or mediastinum. 5. Stable small right pleural effusion. 6. Additional ancillary findings as discussed in the body of the report, stable from the prior exam. Electronically signed by: Severo Lenz MD 02/04/2025 04:30 PM EDT
[2025-02-04] MEDS: iohexoL 350 MG/ML 100 ML INFUS..BTL IV (15:54)
== END 2025-02-04 15:13 | disposition home or self-care (01) ==
LOC: HO.CT 15:12
PROVIDERS: PCP Internal Medicine; Visit Provider Internal Medicine Medical Oncology
DX: C34.90 Malignant neoplasm of unspecified part of unspecified bronchus or lung (principal)
CPT/HCPCS: 71260; Q9967

== ENCOUNTER → 2025-02-04 15:15 | Outpatient (BNV) | payer OTHER, SELFPAY | PROVIDERS: PCP Internal Medicine; Visit Provider Radiology Diagnostic Radiology | DX: C34.90 Malignant neoplasm of unspecified part of unspecified bronchus or lung (principal); J98.59 Other diseases of mediastinum, not elsewhere classified; J98.4 Other disorders of lung; J98.11 Atelectasis; J90 Pleural effusion, not elsewhere classified | CPT/HCPCS: 71260 ==

== ENCOUNTER 2025-02-05 08:38 | Outpatient (REF) | payer OTHER, SELFPAY | END 2025-02-05 08:39 | disposition home or self-care (01) | LOC: HO.MAMMO 08:38 | PROVIDERS: PCP Internal Medicine; Visit Provider Internal Medicine | DX: Z12.31 Encounter for screening mammogram for malignant neoplasm of breast (principal) | CPT/HCPCS: 77063; 77067 ==

== ENCOUNTER → 2025-02-05 09:00 | Outpatient (BNV) | payer OTHER, SELFPAY | PROVIDERS: PCP Internal Medicine; Visit Provider Internal Medicine | DX: Z12.31 Encounter for screening mammogram for malignant neoplasm of breast (principal) | CPT/HCPCS: 77063; 77067 ==

== ENCOUNTER 2025-04-02 11:04 | Outpatient (AMB) | payer OTHER, SELFPAY ==
[2025-04-02 11:18] VITALS: BP 112/70; PULSE 77; O2SAT 96; BMI 24.0
--- NOTE | 2025-04-02 11:18 | MHC.OFFVIS ---
Vital Signs 04/02/25 11:18 Height 5 ft 4 in Weight 139 lb 15.896 oz BMI 24.0 BP 112/70 Blood Pressure Location Lt brachial Position Sitting Pulse 77 Pulse Source Pulse Oximeter Pulse Oximetry (%) 96 Oxygen Delivery Method Room Air Intake Visit Reasons: Lung CA Security Attendant Required: No Accompanied by: Spouse Allergies heparin Allergy (Verified 04/02/25 11:21) Difficulty Breathing HPI Comments Details: The patient is a 64 year woman with a history of tobacco dependency presenting with a normal CT scan the chest. Apparently she had been having worsening cough. The cough is significant. He continued to worsen. Nonproductive in nature. Also associated with shortness of breath. Also had difficulty with chest tightness. She could not tolerate the symptoms and decided to go to the ER evaluate there she did have a CTA. The personally reviewed the demonstrating a large mediastinal mass which appears to be to some degree necrotic in nature. She was referred to thoracic surgery. Was then referred to Pulmonary. We did do a telehealth visit. The patient understands that she has a concerning condition that needs to have a biopsy. We did talk about different alternatives of diagnostic intervention. The highest yield lowest risk procedure would be to perform a bronchoscopy with endobronchial ultrasound to get sampling. Will try to schedule that as soon as possible at this time. In the meantime we did talk about treating her underlying symptoms to allow her to be able to feel better at this time. 01/24/2024 the patient is here for pulmonary follow-up visit. She is status post bronchoscopy with endobronchial ultrasound bronchoscopy. The bronchoscopy demonstrated complete opacification or obstruction of the right upper lobe with very abnormal anatomy. With forceps we are able to get endobronchial biopsies of the abnormal area in the right mainstem bronchus and also where we to do EBUS with transbronchial needle aspirations. Is a very poorly differentiated cancer difficult to differentiate. However, based on the testing available it appears to be non-small cell. Additional molecular markers have been sent and we are still waiting for the results. The patient is having significant back pain and cough. Cough seems to be better after the prednisone courses. In addition to that she is waiting for a PET scan scheduled for early next week. She did have PFTs today which will be helpful in further assessing pulmonary capacity. However, due to the location of the mass is unlikely that this is going to be a surgical case. Will wait for the PET scan to be able to get a better radiological staging of disease. But based on the endobronchial disease involving the central airways and also the fact that this mask is pushing the mediastinum, unfortunately, this is not a surgical case. Still waiting for the molecular markers to be able to provide her at least with the best option possible. She will be seen Hematology Oncology tomorrow. The patient also may need radiation oncology which she can do in a nearby hospital. Will keep her under FMLA out of work at this times that she is not able to work with this very advanced cancer. 02/21/2024 the patient is here for pulmonary follow-up visit. She is going to start chemotherapy. Her genetic mutation came back positive for KRAS. She also has PD1 positive. She will start her therapy and then consider more targeted therapy in the future. In the meantime she is having some issues with coughing addition to stridor. Seems to get worse when she is coughing or prime. She does have cough medication. Will go ahead and give her some Solu-Medrol today. She will receive her 1st dose of chemo today. She is also on steroids for chemo. The patient will be receiving a nebulizer treatment as well. Will provide her with a nebulizer for her to continue her nebulizer twice a day at home. 04/29/2024 the patient is here for a pulmonary follow-up visit. Overall the patient has been doing well. She is completing her chemo and also radiation. After she will likely start immune therapy. Her respiratory symptoms a lot better. She continues use her respiratory therapy. She has not required anymore prednisone or antibiotics since we last spoke. Once she completes her chemoradiation cycles she will go ahead and get a restaging through Oncology. Will follow-up in 6 months. If any other issues arise she will call for an earlier assessment. 11/24/2024 the patient is here for a pulmonary follow-up visit. The patient had a CT scan back in 10/22/2024. It did personally review. The masslike lesion in the right upper lobe shrunk slightly. However there is areas of atelectasis and airspace disease. She was started on Augmentin for few weeks. Overall she is not any better she still feels tired, also complaining of some back pain and just unsteady. She did get the Keytruda during the last infusion but her chemotherapy was held because of that. She is going to get IV hydration coming up soon. In the meantime will go ahead and start her on doxycycline since she still does not feel well and will repeat the CAT scan in a few weeks. If the areas to abnormal then will go ahead and plan to do bronchoscopy to address the airway issue. I did reassure her though that the mask had decreased in size which is a good sign that she is responding to therapy. She is very nervous. She also feels very tired and she is ?sick of being sick ?we did go for brief walking oximetry and her oxygen was good at 96% with activity the heart rate was a little elevated at 100. 04/02/2025 the patient is here for pulmonary follow-up visit. Overall the patient has been doing fairly well denies any worsening shortness of breath. She has been tolerating the Keytruda seems to be well. She also continues on the chemo. She did undergo a CT scan back in January appears that the masslike density is smaller in size. She does have a stable pleural effusion. Overall the patient is doing well on her current respiratory therapy. She will have another CAT scan in May actually will have probably likely have a PET scan based on oncology is recommendations. She will get a flu shot today. Otherwise the patient is without any other complaints. [facility] Medical History Depression Hx of skin cancer, basal cell Former cigarette smoker COPD (chronic obstructive pulmonary disease) Chest pain Chronic cough Basal cell carcinoma Vitamin D deficiency Hyperpigmented skin lesion Family history of colon cancer in father Hyperlipidemia Surgical History History of bronchoscopy Non-small cell lung cancer History of basal cell carcinoma (BCC) excision History of hand surgery History of cholecystectomy History of carpal tunnel surgery of right wrist Nicotine dependence, cigarettes, uncomplicated S/P gastric surgery History of appendectomy Family History Father Colon cancer Mother Hypertension Social History Housing: House Are you a primary direct care staffer to a significant other at home: No Do you presently have visiting nurse or other home services: No Alcohol intake: current Alcohol intake frequency: does not drink Patient Tobacco Use Status: Former Tobacco user Tobacco use type: Cigarette e-Cigarette/Vaping Use: Never Used service: No Current occupational status: employed 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, 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 Cognitive needs: No Hearing needs: No Vision needs: No Review of Systems Const Reports daytime sleepiness, Reports excessive sweating, Denies fever(s) and Reports lethargy Eyes Reports no additional complaints ENT Reports no additional complaints Card Denies chest pain and Reports dyspnea on exertion Resp Reports cough, Reports dyspnea on exertion and Denies wheezing GI Reports no additional complaints Musc Reports back pain Skin/Breast Denies rash Neuro Reports no additional complaints Endo Reports excessive sweating Mahad/Lymph Reports lymphadenopathy Aller/Immun Reports no additional complaints and Denies wheezing Physical Exam Vital Signs: Last Vital Signs Pulse 77 04/02/25 11:18 BP 112/70 04/02/25 11:18 Pulse Ox 96 04/02/25 11:18 Oxygen Delivery Method Room Air 04/02/25 11:18 BMI result Body Mass Index 24.0 Const General: comfortable and anxious HEENT Head: Yes normocephalic Neck Neck: Yes supple Chest Chest palpation & inspection: normal inspection of the chest Resp Effort & Inspection: normal respiratory effort Auscultation: diminished lung sounds Cardio Heart sounds: S1 normal heart sound present and S2 normal heart sound present GI Palpation (GI): Soft to palpation Skin General skin exam: no rashes or lesions noted Extrem General: Yes no clubbing, cyanosis or edema Office Procedures Flu Questionnaire Does the patient have a severe egg allergy?: No Does the patient have severe life threatening allergies?: No Does the patient have a fever or illness today?: No Has the patient ever had Guillain-Arnold Syndrome?: No Has the patient ever had any past reaction to a flu shot?: No Immunizations Fluarix [id number] (PF) 45 mcg (15 mcg x 3)/0.5 mL IM syringe Performing Provider: Sina Del Real MD Performing Location: [facility] Pulmonology Services Administered by: Kelly Cline RN on 04/02/25 11:56 Dose Route Admin Location Dispensed Lot Number Expiration Date [employer] 0.5 mL IM Right Deltoid 0.5 mL [id number] 10/27/25 [id number] [employer] [place] VIS Given Date VIS Provided VIS Publication Date 04/02/25 Single Vaccine 24 Eligibility Eligibility Date Funding Source Not [facility] Eligible 04/02/25 Private Assessment & Plan Assessment & Plan (1) Non-small cell lung cancer: Comment: (poorly differentiated carcinoma RUL - dx 12/2023) Code(s): C34.90 - Malignant neoplasm of unspecified part of unspecified bronchus or lung Category: Surgical Qualifiers: Laterality: right Qualified Code(s): C34.91 - Malignant neoplasm of unspecified part of right bronchus or lung (2) Mass of upper lobe of right lung: Code(s): R91.8 - Other nonspecific abnormal finding of lung field Category: Surgical (3) Chronic cough: Code(s): R05.3 - Chronic cough Category: Medical (4) Nicotine dependence, cigarettes, uncomplicated: Code(s): F17.210 - Nicotine dependence, cigarettes, uncomplicated Category: Surgical (5) COPD (chronic obstructive pulmonary disease): Code(s): J44.9 - Chronic obstructive pulmonary disease, unspecified Category: Medical Qualifiers: COPD type: chronic bronchitis Chronic bronchitis type: simple Qualified Code(s): J41.0 - Simple chronic bronchitis Plan Albuterol/BUdesonide BID via nebulizer*rinse mouth* [place] PET scan as per Oncology 05/2025 cough medicine Chemo/PDL1 therapy F/U 4-6 months Orders: Orders Influenza [id number] Immunization Today Z23 - Encounter for immunization Medications: New modafinil (Provigil) 100 mg PO DAILY 30 tabs 3RF 30 days Coding Level of Care Code Complex visit Add On [id number] Diagnoses Non-small cell cancer of right lung C34.91 Laterality: right Mass of upper lobe of right lung R91.8 Chronic cough R05.3 Nicotine dependence, cigarettes, uncomplicated F17.210 Simple chronic bronchitis J41.0 COPD type: chronic bronchitis Chronic bronchitis type: simple Time Spent (min) 17
== END 2025-04-02 11:56 | disposition home or self-care (01) ==
LOC: HO.HPS 11:05
PROVIDERS: PCP Internal Medicine; Visit Provider Hospitalist
DX: C34.91 Malignant neoplasm of unspecified part of right bronchus or lung (principal); R91.8 Other nonspecific abnormal finding of lung field; R05.3 Chronic cough; F17.210 Nicotine dependence, cigarettes, uncomplicated; J41.0 Simple chronic bronchitis; Z23 Encounter for immunization
CPT/HCPCS: 99214

== ENCOUNTER → 2025-04-02 11:04 | Outpatient (BNVA) | payer OTHER, SELFPAY | PROVIDERS: PCP Internal Medicine; Visit Provider Hospitalist | DX: C34.91 Malignant neoplasm of unspecified part of right bronchus or lung (principal); J41.0 Simple chronic bronchitis; F17.210 Nicotine dependence, cigarettes, uncomplicated; Z23 Encounter for immunization | CPT/HCPCS: 90471; 90656; 99212 ==